=== PATIENT | male | born 1960 ===

== ENCOUNTER 2020-06-10 10:37 | Outpatient (REF) | payer MEDICAID, SELFPAY ==
[2020-06-10 12:24] LABS: Hematocrit 45.8 % (42-52); Hemoglobin 15.1 g/dl (14.0-18.0); Mean Corpuscular Hemoglobin 28.2 pg (27.0-33.0); Mean Corpuscular Volume 85.4 fL (80-98); Mean Platelet Volume 11.4 fL (9.4-12.4); Platelet Count 194 X10*3/uL (160-400); Red Blood Count 5.36 X10*6/uL (4.60-5.80); Red Cell Distribution Width 13.8 % (11.0-16.0)
[2020-06-10 12:42] LABS: Anion Gap 10 (12-20); Blood Urea Nitrogen 12 mg/dL (9-16); Calcium 9.2 mg/dL (8.4-10.2); Carbon Dioxide 29 mmol/L (22-29); Chloride 108 mmol/L (96-108); Cholesterol 180 mg/dL; Estimated Glomerular Filt Rate > 60; Glucose Random 87 mg/dL (60-115); HDL Cholesterol 29 mg/dL; LDL Cholesterol Calculated 121 mg/dl; Potassium 4.7 mmol/l (3.3-5.1); Sodium 142 mmol/L (135-145); Triglycerides 154 mg/dL
[2020-06-10 13:04] LABS: Free T4 (Free Thyroxine) 1.01 ng/dL (0.71-1.85); Thyroid Stimulating Hormone 1.02 mIU/mL (0.32-4.0)
[2020-06-10 13:07] LABS: Folate 11.2 ng/mL (> or = 4.0); Vitamin B12 379 pg/mL (200-900)
[2020-06-10 14:04] LABS: Creatinine Urine 127.55 mg/dL
[2020-06-10 14:18] LABS: Microalbum/Creatinine Ratio Ur 503.3 ug/mg cr
[2020-06-10 14:43] LABS: Estimated Average Glucose 100 mg/dL; Hemoglobin A1c % 5.1 %
== END 2020-06-10 10:38 | disposition home or self-care (01) ==
LOC: HO.LAB 10:37
PROVIDERS: PCP Family Medicine; Visit Provider Family Medicine
DX: I10 Essential (primary) hypertension (principal)
CPT/HCPCS: 36415; 80048; 80061; 82043; 82306; 82607; 82746; 83036; 84439; 84443; 85027

== ENCOUNTER 2020-07-22 06:06 | Day surgery (SDC) | payer MEDICAID, SELFPAY ==
[2020-07-16 14:55] VITALS: BMI 25.0
[2020-07-22 06:32] VITALS: BP 132/60; PULSE 61; RESP 16; TEMP 36.6; O2SAT 98
--- NOTE | 2020-07-22 06:37 | PC.NURSE ---
no meds taken today
--- NOTE | 2020-07-22 07:25 | MHC.SHP ---
Pre-Procedural Eval Section B Chief Complaint: Hx of Bladder Cancer Details of Present Illness: Bladder tumor Relevant Family History (Specify if Yes): No Relevant Social History: Tobacco Use Present Medications: see Short Stay Collaborative assessment Medical History: No relevant PMH History of Previous Operations: No relevant previous surgery Allergies: Allergies Allergy/AdvReac Type Severity Reaction Status Date / Time Iodinated Contrast Media Allergy Severe TACHYCARDIA, Unverified 05/22/20 18:02 [IV DYE, IODINE CONTAINING DIFFICULTY CONTRAST ] BREATHING, CHEST PAIN Penicillins [PENICILLINS] Allergy Severe SHAKING,CHI Unverified 05/22/20 18:02 LLS penicillin V Allergy Unknown redness, Verified 04/16/20 00:00 chest tightness SEAFOOD Allergy Severe ITCHING, Uncoded 05/22/20 18:02 HIVES, N/V shellfish Allergy Unknown rash, Uncoded 04/16/20 00:00 itching Review of Systems Sugical H&P ROS: Negative: Constitution, Cardiovascular, Respiratory, Neurological, Psychiatric, Hem-Onc, Allergic/Immunologic, Gastrointestinal, Genitourinary, Musculoskeletal, Integumentary, Endocrine and Eyes/Ears/Nose/Throat Exam Surgical H&P Exam: Normal: HEENT, Normal: Heart, Normal: Lungs, Normal: Extremities, Normal: Abdomen, Normal: Skin and Normal: Neurological Plan Diagnosis/Plan: Unchanged Patient has been examined and remains a candidate for the planned procedure
[2020-07-22] MEDS: levoFLOXacin 500 MG TABLET PO (07:30)
--- NOTE | 2020-07-22 07:32 | P.CONAN_ITS ---
COUNTS INCLUDE 234 BEDS AT THE [facility] Past Medical History Medical History Arthritis Back pain Bipolar 1 disorder BPH (benign prostatic hyperplasia) Bronchitis Depression Elevated cholesterol HTN (hypertension) Hx of bladder cancer Hx of gastroesophageal reflux (GERD) Hx of hepatitis C Positive PPD PTSD (post-traumatic stress disorder) Smoker Surgical History Surgical History History of inguinal hernia repair Hx of arthroscopy of left knee Hx of colonoscopy Hx of cystoscopy Hx of hand surgery Hx of hernia repair Social History Social History Alcohol intake: never Smoking Status: Current every day smoker Tobacco Type: Cigarette Cigarettes Per Day: 10 Years Smoked: 27 Advance Directives: Yes Advance Directives Information Provided: Yes Advance Directives on File: Yes Advance Directives Date on File: 06/10/20 Meds Allergies Allergy/AdvReac Type Severity Reaction Status Date / Time Iodinated Contrast Media Allergy Severe TACHYCARDIA, Unverified 05/22/20 18:02 [IV DYE, IODINE CONTAINING DIFFICULTY CONTRAST ] BREATHING, CHEST PAIN Penicillins [PENICILLINS] Allergy Severe SHAKING,CHI Unverified 05/22/20 18:02 LLS penicillin V Allergy Unknown redness, Verified 04/16/20 00:00 chest tightness SEAFOOD Allergy Severe ITCHING, Uncoded 05/22/20 18:02 HIVES, N/V shellfish Allergy Unknown rash, Uncoded 04/16/20 00:00 itching Home Medications Medication Instructions Recorded Confirmed Type amitriptyline 10 mg PO BEDTIME 07/16/20 07/16/20 History atorvastatin 20 mg PO BEDTIME 07/16/20 07/16/20 History bupropion HCl 150 mg PO QAM 07/16/20 07/16/20 History cholecalciferol (vitamin D3) 25 mcg PO DAILY 07/16/20 07/16/20 History [Vitamin D3] cyclobenzaprine [Flexeril] 10 mg PO TID PRN 07/16/20 07/16/20 History dicyclomine 10 mg PO BID 07/16/20 07/16/20 History duloxetine [Cymbalta] 30 mg PO DAILY 07/16/20 07/16/20 History gabapentin 300 mg PO TID 07/16/20 07/16/20 History lisinopril 5 mg PO DAILY 07/16/20 07/16/20 History loratadine [Claritin] 10 mg PO DAILY 07/16/20 07/16/20 History sertraline 100 mg PO DAILY 07/16/20 07/16/20 History tamsulosin 0.4 mg PO BEDTIME 07/16/20 07/16/20 History tramadol 50 mg PO TID PRN 07/16/20 07/16/20 History zolpidem 5 mg PO BEDTIME PRN 07/16/20 07/16/20 History Exam Exam Date and Time: July 22, 2020 0732 Height,Weight and Vital Signs: Height 6 ft Weight 83.915 kg Last Vital Signs Temp 97.9 F 07/22/20 06:32 Pulse 61 07/22/20 06:32 Resp 16 07/22/20 06:32 BP 132/60 07/22/20 06:32 Pulse Ox 98 07/22/20 06:32 Airway Mallampati Class: II TM Dist: >3cm Neck ROM: Full
[2020-07-22] MEDS: Lactated Ringers 1,000 ML 100 ML IVCONT (07:46)
--- NOTE | 2020-07-22 07:56 | P.OP_ITS ---
Operative Note Operative Note Date of Service: 07/22/20 Narrative: PreOperative Diagnosis: recurrent bladder cancer Post Operative Diagnosis: recurrent bladder cancer Procedure: check cystoscopy Surgeon: Dr Samuel Cox Anesthesia: mac Indications for procedure: This is a 60-year-old male. Known prior bladder cancer. Has check cystoscopy in the operating room secondary to anxiety. Is here for cystoscopy surveillance Procedure: After informed consent was verified the patient was brought to the operating room and placed in a supine position. anesthesia was administered per protocol. the patient was placed in a modified dorsal lithotomy position and prepped and draped in a sterile fashion. Safety pause time-out was performed. Antibiotics were confirmed. Twenty-one Japanese cystoscope inserted per urethra. No abnormality noted of the anterior posterior urethra. The bladder was examined in its entirety 1st with a 30 degree lens followed by 70 degree lens. There were no lesions seen. There were multiple areas of prior fulguration. Particularly around the dome of the bladder and the right ureteric orifice. The right ureteric orifice appeared high on the wall and there was a question of a 2nd orifice down low with this was attack of tissue. On filling he did also appear to have some blanching of the mucosa and glomer ulations. This may be a side effect from prior intravesical therapy. He tolerated procedure well was extubated in the operating room transferred in a stable condition to the recovery area. Pathology: None Drains: known
--- NOTE | 2020-07-22 07:56 | PM.OP ---
Brief Operative Note Date of Service: 07/22/20 Pre-op diagnosis: Recurrent bladder cancer Post-op diagnosis: same Procedure: cystoscopy Surgeon: Samuel Cox MD Anesthesia: MAC Estimated blood loss (mL): 0 Pathology: none sent Condition: stable Disposition: same day
[2020-07-22 08:10] VITALS: BP 90/46; PULSE 75; RESP 16; TEMP 36.2; O2SAT 95
[2020-07-22 08:15] VITALS: BP 96/47; PULSE 70; RESP 16; O2SAT 96
--- NOTE | 2020-07-22 08:19 | P.CONAN_ITS ---
[facility] Past Medical History Medical History Arthritis Back pain Bipolar 1 disorder BPH (benign prostatic hyperplasia) Bronchitis Depression Elevated cholesterol HTN (hypertension) Hx of bladder cancer Hx of gastroesophageal reflux (GERD) Hx of hepatitis C Positive PPD PTSD (post-traumatic stress disorder) Smoker Surgical History Surgical History History of inguinal hernia repair Hx of arthroscopy of left knee Hx of colonoscopy Hx of cystoscopy Hx of hand surgery Hx of hernia repair Social History Social History Alcohol intake: never Smoking Status: Current every day smoker Tobacco Type: Cigarette Cigarettes Per Day: 10 Years Smoked: 27 Advance Directives: Yes Advance Directives Information Provided: Yes Advance Directives on File: Yes Advance Directives Date on File: 06/10/20 Meds Allergies Allergy/AdvReac Type Severity Reaction Status Date / Time Iodinated Contrast Media Allergy Severe TACHYCARDIA, Unverified 05/22/20 18:02 [IV DYE, IODINE CONTAINING DIFFICULTY CONTRAST ] BREATHING, CHEST PAIN Penicillins [PENICILLINS] Allergy Severe SHAKING,CHI Unverified 05/22/20 18:02 LLS penicillin V Allergy Unknown redness, Verified 04/16/20 00:00 chest tightness SEAFOOD Allergy Severe ITCHING, Uncoded 05/22/20 18:02 HIVES, N/V shellfish Allergy Unknown rash, Uncoded 04/16/20 00:00 itching Home Medications Medication Instructions Recorded Confirmed Type amitriptyline 10 mg PO BEDTIME 07/16/20 07/16/20 History atorvastatin 20 mg PO BEDTIME 07/16/20 07/16/20 History bupropion HCl 150 mg PO QAM 07/16/20 07/16/20 History cholecalciferol (vitamin D3) 25 mcg PO DAILY 07/16/20 07/16/20 History [Vitamin D3] cyclobenzaprine 10 mg PO TID PRN 07/16/20 07/16/20 History dicyclomine 10 mg PO BID 07/16/20 07/16/20 History duloxetine [Cymbalta] 30 mg PO DAILY 07/16/20 07/16/20 History gabapentin 300 mg PO TID 07/16/20 07/16/20 History lisinopril 5 mg PO DAILY 07/16/20 07/16/20 History loratadine [Claritin] 10 mg PO DAILY 07/16/20 07/16/20 History sertraline 100 mg PO DAILY 07/16/20 07/16/20 History tamsulosin 0.4 mg PO BEDTIME 07/16/20 07/16/20 History tramadol 50 mg PO TID PRN 07/16/20 07/16/20 History zolpidem 5 mg PO BEDTIME PRN 07/16/20 07/16/20 History Exam Exam Date and Time: July 22, 2020818 Height,Weight and Vital Signs: Height 6 ft Weight 83.915 kg Last Vital Signs Temp 97.2 F 07/22/20 08:10 Pulse 70 07/22/20 08:15 Resp 16 07/22/20 08:15 BP 96/47 L 07/22/20 08:15 Pulse Ox 96 07/22/20 08:15 Airway Mallampati Class: II TM Dist: >3cm Neck ROM: Full
[2020-07-22 08:20] VITALS: BP 99/56; PULSE 73; RESP 16; O2SAT 97
[2020-07-22] MEDS: Phenazopyridine HCL 100 MG TABLET PO (08:22)
[2020-07-22] MEDS: Acetaminophen 325 MG TABLET 650 MG PO (08:22)
[2020-07-22 08:25] VITALS: BP 95/55; PULSE 72; RESP 16; O2SAT 97
[2020-07-22 08:39] VITALS: BP 104/53; PULSE 62; RESP 16; O2SAT 98
--- NOTE | 2020-07-22 09:24 | HO.POSTANES ---
Post Anesthesia Evaluation Post Anesthesia Evaluation Vital Signs: Vital Signs Temp Pulse Resp BP Pulse Ox 07/22/20 08:39 62 16 104/53 L 98 07/22/20 08:25 72 16 95/55 L 97 07/22/20 08:20 73 16 99/56 L 97 07/22/20 08:15 70 16 96/47 L 96 07/22/20 08:10 97.2 F 75 16 90/46 L 95 07/22/20 06:32 97.9 F 61 16 132/60 98 Anesthesia: General Mental Status: Awake Pain Control: Satisfactory Nausea/Vomiting: None Hydration: Adequate Anesthesia-Related Issues: No Anes. Related Issues
== END 2020-07-22 09:15 | disposition home or self-care (01) ==
PROVIDERS: PCP Family Medicine; Visit Provider Urology
PROC: 0TJB8ZZ Inspection of Bladder, Via Natural or Artificial Opening Endoscopic (ICD-10-PCS; CPT 52000; principal; 2020-07-22 07:30)
DX: Z12.6 Encounter for screening for malignant neoplasm of bladder (principal); Z85.51 Personal history of malignant neoplasm of bladder; N40.0 Benign prostatic hyperplasia without lower urinary tract symptoms; I10 Essential (primary) hypertension; F43.10 Post-traumatic stress disorder, unspecified; F32.9 Major depressive disorder, single episode, unspecified; Z22.7 Latent tuberculosis; M15.9 Polyosteoarthritis, unspecified; F17.210 Nicotine dependence, cigarettes, uncomplicated; Z79.899 Other long term (current) drug therapy; Z88.0 Allergy status to penicillin; Z91.041 Radiographic dye allergy status; Z91.013 Allergy to seafood
CPT/HCPCS: 52000; J1100; J2250; J2405; J3010

== ENCOUNTER → 2020-08-07 12:29 | Outpatient (BNVA) | payer MEDICAID, SELFPAY | PROVIDERS: PCP Family Medicine; Referring Provider Family Medicine; Visit Provider Student in an Organized Health Care Education/Training Program | DX: Z76.89 Persons encountering health services in other specified circumstances (principal) ==

== ENCOUNTER → 2020-10-02 12:37 | Outpatient (BNVA) | payer MEDICAID, SELFPAY | PROVIDERS: PCP Family Medicine; Visit Provider Urology | DX: C67.9 Malignant neoplasm of bladder, unspecified (principal) | CPT/HCPCS: 99212 ==

== ENCOUNTER 2020-12-01 06:19 | Day surgery (SDC) | payer MEDICAID, SELFPAY ==
[2020-11-25 09:54] VITALS: BMI 27.3
[2020-12-01 06:27] VITALS: BP 121/71; PULSE 69; RESP 16; TEMP 36.7; O2SAT 97
[2020-12-01] MEDS: Lactated Ringers 1,000 ML 50 ML IV (07:33)
--- NOTE | 2020-12-01 07:38 | MHC.SHP ---
Pre-Procedural Eval Section A The patient is an INPATIENT: No Changes since office visit: No Cold of Flu in the past 2 weeks, No New Medical Problems, No Changes in Medication and No Patient answered all questions The History & Physical has been completed within 30 days and I have reviewed it.: No Section B Chief Complaint: bladder neoplasm Details of Present Illness: ongoing. Here for 4 month review Relevant Family History (Specify if Yes): No Relevant Social History: None Present Medications: see Short Stay Collaborative assessment Medical History: No relevant PMH History of Previous Operations: Relevant previous surgery/procedure and date(s) Allergies: Allergies Allergy/AdvReac Type Severity Reaction Status Date / Time Iodinated Contrast Media Allergy Severe TACHYCARDIA, Verified 12/01/20 06:44 [IV DYE, IODINE CONTAINING DIFFICULTY CONTRAST ] BREATHING, CHEST PAIN Penicillins [PENICILLINS] Allergy Severe SHAKING,CHI Verified 12/01/20 06:44 LLS SEAFOOD Allergy Severe ITCHING, Uncoded 05/22/20 18:02 HIVES, N/V Review of Systems Sugical H&P ROS: Negative: Constitution, Cardiovascular, Respiratory, Neurological, Psychiatric, Hem-Onc, Allergic/Immunologic, Gastrointestinal, Genitourinary, Musculoskeletal, Integumentary, Endocrine and Eyes/Ears/Nose/Throat Exam Surgical H&P Exam: Normal: HEENT, Normal: Heart, Normal: Lungs, Normal: Extremities, Normal: Abdomen, Normal: Skin and Normal: Neurological Plan Diagnosis/Plan: Unchanged (check cystoscopy with biopsy if necessary) I have reviewed the history and physical and performed a pertinent physical examination on my patient. No changes have occurred unless specified.
[2020-12-01 08:00] VITALS: BP 108/60; PULSE 79; RESP 14; TEMP 36.2; O2SAT 99
--- NOTE | 2020-12-01 08:00 | W.PM.OPN ---
Operative Note Operative Note Date of Service: 12/01/20 Narrative: PreOperative Diagnosis: recurrent superficial bladder cancer Post Operative Diagnosis: recurrent superficial bladder cancer Procedure: cystoscopy fulguration Surgeon: Dr Samuel Cox Anesthesia: general Indications for procedure: This is a 60-year-old male. Prior superficial bladder cancer. Here for 4 month review. Normally undergo cystoscopy with fulguration of any lesions. Procedure: After informed consent was verified the patient was brought to the operating room and placed in a supine position. anesthesia was administered per protocol. The patient was placed in a modified dorsal lithotomy position and prepped and draped in a sterile fashion. Safety pause time-out was performed. Antibiotics have been given. Twenty-two Vietnamese cystoscope inserted per urethra. No abnormality noted in the anterior or posterior urethra. Bladder was examined in its entirety. Once small 5 mm lesion was found in back wall of the bladder in the midline. This was fulgurated. No other lesions were found Patient tolerated procedure well was extubated in operating room and transferred in a stable condition to the recovery area. Pathology: None Drains: none
--- NOTE | 2020-12-01 08:01 | HO.ANESPROP2 ---
[facility] [place] Active Problems Active Problems: All Active Problems (Updated 10/02/20 @ 13:12 by Gallo Fleming III, MD) Bladder cancer (Acute) Ankylosing spondylitis (Acute) Past Medical History Medical History Ankylosing spondylitis Arthritis Back pain Bipolar 1 disorder Bladder cancer BPH (benign prostatic hyperplasia) Bronchitis Depression Elevated cholesterol HTN (hypertension) Hx of bladder cancer Hx of gastroesophageal reflux (GERD) Hx of hepatitis C Positive PPD PTSD (post-traumatic stress disorder) Smoker Surgical History Surgical History History of inguinal hernia repair Hx of arthroscopy of left knee Hx of colonoscopy Hx of cystoscopy Hx of cystoscopy Hx of hand surgery Hx of hernia repair Social History Social History Alcohol intake: never Smoking Status: Current every day smoker Tobacco Type: Cigarette Cigarettes Per Day: 10 Years Smoked: 27 Use of substances other than those prescribed or required for medical reasons: No Advance Directives: Yes Advance Directives Information Provided: Yes Advance Directives on File: Yes Advance Directives Date on File: 06/10/20 Meds Allergies Allergy/AdvReac Type Severity Reaction Status Date / Time Iodinated Contrast Media Allergy Severe TACHYCARDIA, Verified 12/01/20 06:44 [IV DYE, IODINE CONTAINING DIFFICULTY CONTRAST ] BREATHING, CHEST PAIN Penicillins [PENICILLINS] Allergy Severe SHAKING,CHI Verified 12/01/20 06:44 LLS SEAFOOD Allergy Severe ITCHING, Uncoded 05/22/20 18:02 HIVES, N/V Active Medications: Current Medications Generic Name Dose Route Start Last Admin Trade Name Freq PRN Reason Stop Dose Admin Lactated Ringer's 1,000 mls @ 50 mls/hr 12/01/20 07:30 12/01/20 07:33 Lr IV 50 mls/hr .Q20H LIZANDRO Administration Home Medications Medication Instructions Recorded Confirmed Last Taken Type amitriptyline 10 mg PO BEDTIME 07/16/20 11/25/20 Unknown History atorvastatin 20 mg PO BEDTIME 07/16/20 11/25/20 Unknown History bupropion HCl 150 mg PO QAM 07/16/20 07/16/20 Unknown History cholecalciferol (vitamin D3) 25 mcg PO DAILY 07/16/20 11/25/20 Unknown History [Vitamin D3] cyclobenzaprine 10 mg PO TID PRN 07/16/20 11/25/20 Unknown History dicyclomine 10 mg PO BID 07/16/20 11/25/20 Unknown History duloxetine [Cymbalta] 30 mg PO DAILY 07/16/20 11/25/20 Unknown History gabapentin 300 mg PO TID 07/16/20 11/25/20 Unknown History lisinopril 5 mg PO DAILY 07/16/20 11/25/20 Unknown History loratadine [Claritin] 10 mg PO DAILY 07/16/20 11/25/20 Unknown History sertraline 100 mg PO DAILY 07/16/20 11/25/20 Unknown History tamsulosin 0.4 mg PO BEDTIME 07/16/20 11/25/20 Unknown History tramadol 50 mg PO TID PRN 07/16/20 11/25/20 Unknown History zolpidem 5 mg PO BEDTIME PRN 07/16/20 11/25/20 Unknown History Exam Exam Date and Time: December 01, 2020 0801 Height,Weight and Vital Signs: Height 5 ft 9 in Weight 83.915 kg Last Vital Signs Temp 98.1 F 12/01/20 06:27 Pulse 69 12/01/20 06:27 Resp 16 12/01/20 06:27 BP 121/71 12/01/20 06:27 Pulse Ox 97 12/01/20 06:27 Airway Mallampati Class: I TM Dist: >3cm Neck ROM: Full Loose/Missing/Broken Teeth: No Heart: RRR Assessment and Plan Assessment Anesthesia Assessment: Anesthesia Plan Discussed and Chart Reviewed Final Anesthetic Review NPO: Yes ASA Class: II Final Preanesthetic Review: No Changes in Pt Med Stat, Meds/Allgs Chart Reviewed, Consent Obtained/Reviewed and Anes Risks/Benef Reviewed Patient Risk: Low Procedure Risk: Low Anesthetic Plan Anesthetic Plan: GA Disposition: Standard PACU
[2020-12-01 08:05] VITALS: BP 110/63; PULSE 69; RESP 18; O2SAT 97
--- NOTE | 2020-12-01 08:05 | PM.OP ---
Brief Operative Note Date of Service: 12/01/20 Pre-op diagnosis: bladder cancer Post-op diagnosis: same Procedure: cysto, fulgeration Surgeon: Samuel Cox MD Anesthesia: GLMA Estimated blood loss (mL): 0 Pathology: none sent Condition: stable Disposition: same day
[2020-12-01 08:10] VITALS: BP 112/70; PULSE 72; RESP 18; O2SAT 96
[2020-12-01 08:15] VITALS: BP 100/56; PULSE 68; RESP 18; O2SAT 96
== END 2020-12-01 09:12 | disposition home or self-care (01) ==
PROVIDERS: PCP Family Medicine; Visit Provider Urology
PROC: 0TBB8ZZ Excision of Bladder, Via Natural or Artificial Opening Endoscopic (ICD-10-PCS; CPT 52234; principal; 2020-12-01 07:30)
DX: C67.9 Malignant neoplasm of bladder, unspecified (principal); I10 Essential (primary) hypertension; F17.210 Nicotine dependence, cigarettes, uncomplicated; Z91.041 Radiographic dye allergy status; Z88.0 Allergy status to penicillin; Z79.899 Other long term (current) drug therapy
CPT/HCPCS: 52234; J1100; J2250; J2405; J3010

== ENCOUNTER → 2020-12-19 11:39 | Outpatient (BNVA) | payer MEDICAID, SELFPAY | PROVIDERS: PCP Family Medicine; Visit Provider Urology ==

== ENCOUNTER → 2021-05-05 14:30 | Outpatient (BNVA) | payer MEDICAID, SELFPAY | PROVIDERS: PCP Family Medicine; Visit Provider Nurse Practitioner Family ==

== ENCOUNTER → 2021-05-26 10:22 | Outpatient (BNVA) | payer MEDICAID, SELFPAY | PROVIDERS: Visit Provider Urology ==

== ENCOUNTER 2021-06-29 07:08 | Day surgery (SDC) | payer MEDICAID, SELFPAY ==
[2021-06-23 11:00] VITALS: BMI 27.3
--- NOTE | 2021-06-26 14:03 | HO.ANESPROP2 ---
Documented by User: Norma Harley NP 06/26/21 14:07 HPI - Anesthesia Eval Consult details Narrative: 61yo M for Cystoscopy s/p TURBT with [facility]-L[facility] 4 (many TURBT) PMFSH Active Problems Active Problems: All Active Problems (Updated 05/26/21 @ 11:13 by Samuel Cox MD) Bladder cancer (Acute) Ankylosing spondylitis (Acute) Past Medical History Medical History Ankylosing spondylitis Arthritis Back pain Bipolar 1 disorder Bladder cancer BPH (benign prostatic hyperplasia) Bronchitis Depression Elevated cholesterol HTN (hypertension) Hx of bladder cancer Hx of gastroesophageal reflux (GERD) Hx of hepatitis C Positive PPD PTSD (post-traumatic stress disorder) Smoker Surgical History Surgical History History of inguinal hernia repair Hx of arthroscopy of left knee Hx of colonoscopy Hx of cystoscopy Hx of cystoscopy Hx of cystoscopy Hx of hand surgery Hx of hernia repair Social History Social History Are you a primary urgent care physician assistant to a significant other at home: No Do you presently have visiting nurse or other home services: No Alcohol intake: never Patient Tobacco Use Status: Current everyday Tobacco user Tobacco use type: Cigarette Cigarettes Per Day: 10 Years Smoked: 28 Use of substances other than those prescribed or required for medical reasons: No Have you been hit, kicked, punched, or otherwise hurt by someone within the past year? If so, by whom?: No Are you DNR?: No Advance Directives: Yes Advance Directives Information Provided: Yes Advance Directives on File: Yes Advance Directives Date on File: 06/10/20 Recently lost weight without trying: No Eating poorly because of decreased appetite: No Nutrition Risks: No Nutritional Risk Meds Allergies Allergy/AdvReac Type Severity Reaction Status Date / Time Iodinated Contrast Media Allergy Severe TACHYCARDIA, Verified 05/05/21 15:13 [IV DYE, IODINE CONTAINING DIFFICULTY CONTRAST ] BREATHING, CHEST PAIN Penicillins [PENICILLINS] Allergy Severe SHAKING,CHI Verified 05/05/21 15:13 LLS seafood Allergy Severe itching/hiv Verified 06/23/21 10:54 es/nausea-v omiting Home Medications Medication Instructions Recorded Confirmed Last Taken Type amitriptyline 10 mg tablet 10 mg PO BEDTIME 07/16/20 06/23/21 Unknown History atorvastatin 20 mg tablet 20 mg PO BEDTIME 07/16/20 06/23/21 Unknown History bupropion HCl 150 mg 24 hr tablet, 150 mg PO QAM 07/16/20 06/23/21 Unknown History extended release cholecalciferol (vitamin D3) 25 25 mcg PO DAILY 07/16/20 06/23/21 Unknown History mcg (1,000 unit) capsule (Vitamin D3) cyclobenzaprine 10 mg tablet 10 mg PO TID PRN 07/16/20 06/23/21 Unknown History dicyclomine 10 mg capsule 10 mg PO BID 07/16/20 06/23/21 Unknown History duloxetine 30 mg capsule,delayed 30 mg PO DAILY 07/16/20 06/23/21 Unknown History release (Cymbalta) gabapentin 300 mg capsule 300 mg PO TID 07/16/20 06/23/21 Unknown History lisinopril 5 mg tablet 5 mg PO DAILY 07/16/20 06/23/21 Unknown History loratadine 10 mg tablet (Claritin) 10 mg PO DAILY 07/16/20 06/23/21 Unknown History sertraline 100 mg tablet 100 mg PO DAILY 07/16/20 06/23/21 Unknown History tamsulosin 0.4 mg capsule 0.4 mg PO BEDTIME 07/16/20 06/23/21 Unknown History tramadol 50 mg tablet 50 mg PO TID PRN 07/16/20 06/23/21 Unknown History zolpidem 5 mg tablet 5 mg PO BEDTIME PRN 07/16/20 06/23/21 Unknown History Exam Exam Date and Time: June 26, 2021 1403 Height,Weight and Vital Signs: Height 5 ft 9 in Weight 83.915 kg Assessment and Plan Assessment Anesthesia Assessment: Chart Reviewed Documented by User: Bette Youssef MD 06/29/21 07:59 PMFSH Past Medical History Medical History Ankylosing spondylitis Arthritis Back pain Bipolar 1 disorder Bladder cancer BPH (benign prostatic hyperplasia) Bronchitis Depression Elevated cholesterol HTN (hypertension) Hx of bladder cancer Hx of gastroesophageal reflux (GERD) Hx of hepatitis C Positive PPD PTSD (post-traumatic stress disorder) Smoker Surgical History Surgical History History of inguinal hernia repair Hx of arthroscopy of left knee Hx of colonoscopy Hx of cystoscopy Hx of cystoscopy Hx of cystoscopy Hx of hand surgery Hx of hernia repair History of Problems with Anesthesia: No Social History Social History Are you a primary urgent care physician assistant to a significant other at home: No Do you presently have visiting nurse or other home services: No Alcohol intake: never Patient Tobacco Use Status: Current everyday Tobacco user Tobacco use type: Cigarette Cigarettes Per Day: 10 Years Smoked: 28 Use of substances other than those prescribed or required for medical reasons: No Have you been hit, kicked, punched, or otherwise hurt by someone within the past year? If so, by whom?: No Are you DNR?: No Advance Directives: Yes Advance Directives Information Provided: Yes Advance Directives on File: Yes Advance Directives Date on File: 06/10/20 Recently lost weight without trying: No Eating poorly because of decreased appetite: No Nutrition Risks: No Nutritional Risk Meds Allergies Allergy/AdvReac Type Severity Reaction Status Date / Time Iodinated Contrast Media Allergy Severe TACHYCARDIA, Verified 05/05/21 15:13 [IV DYE, IODINE CONTAINING DIFFICULTY CONTRAST ] BREATHING, CHEST PAIN Penicillins [PENICILLINS] Allergy Severe SHAKING,CHI Verified 05/05/21 15:13 LLS seafood Allergy Severe itching/hiv Verified 06/23/21 10:54 es/nausea-v omiting Home Medications Medication Instructions Recorded Confirmed Last Taken Type amitriptyline 10 mg tablet 10 mg PO BEDTIME 07/16/20 06/23/21 Unknown History atorvastatin 20 mg tablet 20 mg PO BEDTIME 07/16/20 06/23/21 Unknown History bupropion HCl 150 mg 24 hr tablet, 150 mg PO QAM 07/16/20 06/23/21 Unknown History extended release cholecalciferol (vitamin D3) 25 25 mcg PO DAILY 07/16/20 06/23/21 Unknown History mcg (1,000 unit) capsule (Vitamin D3) cyclobenzaprine 10 mg tablet 10 mg PO TID PRN 07/16/20 06/23/21 Unknown History dicyclomine 10 mg capsule 10 mg PO BID 07/16/20 06/23/21 Unknown History duloxetine 30 mg capsule,delayed 30 mg PO DAILY 07/16/20 06/23/21 Unknown History release (Cymbalta) gabapentin 300 mg capsule 300 mg PO TID 07/16/20 06/23/21 Unknown History lisinopril 5 mg tablet 5 mg PO DAILY 07/16/20 06/23/21 Unknown History loratadine 10 mg tablet (Claritin) 10 mg PO DAILY 07/16/20 06/23/21 Unknown History sertraline 100 mg tablet 100 mg PO DAILY 07/16/20 06/23/21 Unknown History tamsulosin 0.4 mg capsule 0.4 mg PO BEDTIME 07/16/20 06/23/21 Unknown History tramadol 50 mg tablet 50 mg PO TID PRN 07/16/20 06/23/21 Unknown History zolpidem 5 mg tablet 5 mg PO BEDTIME PRN 07/16/20 06/23/21 Unknown History Exam Airway Mallampati Class: III TM Dist: >3cm Neck ROM: Full Loose/Missing/Broken Teeth: No Heart: RRR Lungs: CTA Assessment and Plan Assessment Anesthesia Assessment: Anesthesia Plan Discussed Final Anesthetic Review History of Problems with Anesthesia: No NPO: Yes ASA Class: II Final Preanesthetic Review: Meds/Allgs Chart Reviewed, Consent Obtained/Reviewed and Anes Risks/Benef Reviewed Patient Risk: Low Procedure Risk: Low Anesthetic Plan Anesthetic Plan: GA Disposition: Standard PACU
[2021-06-29] MEDS: levoFLOXacin 500 MG TABLET PO (08:00)
[2021-06-29 08:24] VITALS: BP 103/56; PULSE 64; RESP 18; TEMP 36.2; O2SAT 98
[2021-06-29] MEDS: Lactated Ringers 1,000 ML 100 ML IVCONT (08:29)
--- NOTE | 2021-06-29 09:56 | MHC.SHP ---
Pre-Procedural Eval Section A Date of Service: 06/29/21 Section B Chief Complaint: neoplasm of bladder Details of Present Illness: check cysto Relevant Social History: None Present Medications: see Short Stay Collaborative assessment Medical History: Significant History History of Previous Operations: Relevant previous surgery/procedure and date(s) Allergies: Allergies Allergy/AdvReac Type Severity Reaction Status Date / Time Iodinated Contrast Media Allergy Severe TACHYCARDIA, Verified 05/05/21 15:13 [IV DYE, IODINE CONTAINING DIFFICULTY CONTRAST ] BREATHING, CHEST PAIN Penicillins [PENICILLINS] Allergy Severe SHAKING,CHI Verified 05/05/21 15:13 LLS seafood Allergy Severe itching/hiv Verified 06/23/21 10:54 es/nausea-v omiting Review of Systems Sugical H&P ROS: Negative: Constitution, Cardiovascular, Respiratory, Neurological, Psychiatric, Hem-Onc, Allergic/Immunologic, Gastrointestinal, Genitourinary, Musculoskeletal, Integumentary, Endocrine and Eyes/Ears/Nose/Throat Exam Surgical H&P Exam: Normal: HEENT, Normal: Heart, Normal: Lungs, Normal: Extremities, Normal: Abdomen, Normal: Skin and Normal: Neurological Plan Diagnosis/Plan: Unchanged (cysto in or) I have reviewed the history and physical and performed a pertinent physical examination on my patient. No changes have occurred unless specified.
--- NOTE | 2021-06-29 10:18 | W.PM.OPN ---
Operative Note Operative Note Date of Service: 06/29/21 Narrative: PreOperative Diagnosis: Bladder cancer Post Operative Diagnosis: Bladder cancer Procedure: Cystoscopy Surgeon: Dr Samuel Cox Anesthesia: Sedation Indications for procedure: Longstanding bladder cancer. On 6 monthly surveillance. Last procedure small lesion Procedure: After informed consent was verified the patient was brought to the operating room and placed in a supine position. Anesthesia was administered per protocol. After he had been prepped and draped in sterile fashion flexible cystoscopy was performed. No abnormality found in the anterior posterior urethra. Bladder examined in its entirety. Prior area scarring at back wall dome seen. No lesions seen within bladder. He tolerated procedure well Repeat procedure in 6 months Pathology: None Drains: None none
[2021-06-29 10:25] VITALS: BP 151/59; PULSE 63; RESP 10; TEMP 36.6; O2SAT 100
[2021-06-29 10:30] VITALS: BP 143/61; PULSE 76; RESP 12; O2SAT 100
[2021-06-29 10:35] VITALS: BP 126/58; PULSE 79; RESP 12; O2SAT 98
[2021-06-29 10:40] VITALS: BP 134/59; PULSE 85; RESP 16; TEMP 36.6; O2SAT 97
[2021-06-29 10:48] VITALS: BP 117/60; PULSE 75; RESP 16; TEMP 36.6; O2SAT 98
[2021-06-29] MEDS: Acetaminophen 325 MG TABLET 650 MG PO (11:09)
[2021-06-29] MEDS: Phenazopyridine HCL 100 MG TABLET PO (11:10)
== END 2021-06-29 11:30 | disposition home or self-care (01) ==
PROVIDERS: PCP Family Medicine; Visit Provider Urology
PROC: 0TJB8ZZ Inspection of Bladder, Via Natural or Artificial Opening Endoscopic (ICD-10-PCS; CPT 52000; principal; 2021-06-29 09:20)
DX: C67.9 Malignant neoplasm of bladder, unspecified (principal); N40.0 Benign prostatic hyperplasia without lower urinary tract symptoms; I10 Essential (primary) hypertension; Z86.19 Personal history of other infectious and parasitic diseases; Z79.899 Other long term (current) drug therapy; Z88.0 Allergy status to penicillin; Z91.041 Radiographic dye allergy status
CPT/HCPCS: 52000; J1100; J2250; J2370; J2405; J3010

== ENCOUNTER → 2021-08-11 09:38 | Outpatient (BNVA) | payer MEDICAID, SELFPAY | PROVIDERS: PCP Family Medicine; Visit Provider Nurse Practitioner Family | DX: M45.9 Ankylosing spondylitis of unspecified sites in spine (principal) | CPT/HCPCS: 99212 ==

== ENCOUNTER 2021-11-10 10:37 | Outpatient (REF) | payer MEDICAID, SELFPAY ==
--- NOTE | ~2021-11-10 | XR_ITS ---
EXAMINATION: XR KNEE, RIGHT CLINICAL INFORMATION: This is a 61-year-old male with history of chronic right knee pain. No history of injury. COMPARISON: Comparison is made to the previous studies dated 10/26/2019 TECHNIQUE: Four views of the right knee. FINDINGS: Bony alignment and mineralization are normal. There is no significant varus or valgus configuration. There is some narrowing of the medial femoral-tibial joint space which is now apparent. There is mild peripheral osteophyte formation of the medial and patellofemoral compartments. This appears increased. There is a small enthesophyte arising from the upper pole of the patella. No fracture or dislocation is seen. There is increased thickening to the patellar tendon region and a possible small joint effusion in the suprapatellar region. XR/XR knee RT 4V IMPRESSION: 1. There is mildly increased osteoarthritic change of the medial and patellofemoral compartment. 2. There may be a small joint effusion in the suprapatellar region with increased thickening of the patellar tendon.
== END 2021-11-10 10:38 | disposition home or self-care (01) ==
LOC: HO.XRAY 10:37
PROVIDERS: PCP Family Medicine; Visit Provider Family Medicine
DX: M25.561 Pain in right knee (principal); M54.9 Dorsalgia, unspecified; M77.11 Lateral epicondylitis, right elbow
CPT/HCPCS: 73564; 99212

== ENCOUNTER → 2022-01-01 09:49 | Outpatient (BNVA) | payer MEDICAID, SELFPAY | PROVIDERS: PCP Family Medicine; Visit Provider Urology | DX: Z13.89 Encounter for screening for other disorder (principal) ==

== ENCOUNTER 2022-03-15 09:31 | Outpatient (REF) | payer MEDICAID, SELFPAY ==
--- NOTE | ~2022-03-15 | XR_ITS ---
EXAMINATION: XR cervical spine 3V, XR thoracic spine 3V, XR lumbar spine 2-3V CLINICAL INFORMATION: Reason for Exam PAIN COMPARISON: None. TECHNIQUE: AP, lateral, open-mouth odontoid, and Fuchs view cervical spine; AP, lateral, swimmer's lateral view thoracic spine; 3 views lumbar spine FINDINGS: Cervical spine: No subluxation or fracture. No prevertebral soft tissue swelling. Anterior longitudinal ligament ossification cervical spine. Preserved intervertebral disc heights compatible resembling DISH. Atlantodens interval is maintained. C1-C2 alignment is preserved. Thoracic spine: Normal alignment. No listhesis. Vertebral body heights are maintained. Bridging thin syndesmophytes are present. Partial ossification of the supraspinous ligament in the lower thoracic spine. Lumbar spine: No subluxation or fracture. Vertebral body heights are maintained. Intervertebral disc space heights are preserved. Prominent anterior endplate proliferative bone throughout the lumbar spine. No pars defects. Lower lumbar facet arthrosis at L5-S1 bilaterally. Mild vascular calcifications. Ankylosis of the SI joints noted. XR/XR lumbar spine 2-3V IMPRESSION: 1. No subluxation or fracture identified. 2. Ankylosis of the bilateral SI joints with anterior longitudinal ligament ossification in the cervical spine and bridging syndesmophytes in the thoracic spine. 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
--- NOTE | ~2022-03-15 | XR_ITS ---
EXAMINATION: XR cervical spine 3V, XR thoracic spine 3V, XR lumbar spine 2-3V CLINICAL INFORMATION: Reason for Exam PAIN COMPARISON: None. TECHNIQUE: AP, lateral, open-mouth odontoid, and Fuchs view cervical spine; AP, lateral, swimmer's lateral view thoracic spine; 3 views lumbar spine FINDINGS: Cervical spine: No subluxation or fracture. No prevertebral soft tissue swelling. Anterior longitudinal ligament ossification cervical spine. Preserved intervertebral disc heights compatible resembling DISH. Atlantodens interval is maintained. C1-C2 alignment is preserved. Thoracic spine: Normal alignment. No listhesis. Vertebral body heights are maintained. Bridging thin syndesmophytes are present. Partial ossification of the supraspinous ligament in the lower thoracic spine. Lumbar spine: No subluxation or fracture. Vertebral body heights are maintained. Intervertebral disc space heights are preserved. Prominent anterior endplate proliferative bone throughout the lumbar spine. No pars defects. Lower lumbar facet arthrosis at L5-S1 bilaterally. Mild vascular calcifications. Ankylosis of the SI joints noted. XR/XR thoracic spine 3V IMPRESSION: 1. No subluxation or fracture identified. 2. Ankylosis of the bilateral SI joints with anterior longitudinal ligament ossification in the cervical spine and bridging syndesmophytes in the thoracic spine. 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
--- NOTE | ~2022-03-15 | XR_ITS ---
EXAMINATION: XR cervical spine 3V, XR thoracic spine 3V, XR lumbar spine 2-3V CLINICAL INFORMATION: Reason for Exam PAIN COMPARISON: None. TECHNIQUE: AP, lateral, open-mouth odontoid, and Fuchs view cervical spine; AP, lateral, swimmer's lateral view thoracic spine; 3 views lumbar spine FINDINGS: Cervical spine: No subluxation or fracture. No prevertebral soft tissue swelling. Anterior longitudinal ligament ossification cervical spine. Preserved intervertebral disc heights compatible resembling DISH. Atlantodens interval is maintained. C1-C2 alignment is preserved. Thoracic spine: Normal alignment. No listhesis. Vertebral body heights are maintained. Bridging thin syndesmophytes are present. Partial ossification of the supraspinous ligament in the lower thoracic spine. Lumbar spine: No subluxation or fracture. Vertebral body heights are maintained. Intervertebral disc space heights are preserved. Prominent anterior endplate proliferative bone throughout the lumbar spine. No pars defects. Lower lumbar facet arthrosis at L5-S1 bilaterally. Mild vascular calcifications. Ankylosis of the SI joints noted. XR/XR cervical spine 3V IMPRESSION: 1. No subluxation or fracture identified. 2. Ankylosis of the bilateral SI joints with anterior longitudinal ligament ossification in the cervical spine and bridging syndesmophytes in the thoracic spine. 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
== END 2022-03-15 09:32 | disposition home or self-care (01) ==
LOC: HO.XRAY 09:31
PROVIDERS: PCP Family Medicine; Visit Provider Family Medicine
DX: M54.2 Cervicalgia (principal); M54.50 Low back pain, unspecified; M54.6 Pain in thoracic spine
CPT/HCPCS: 72040; 72072; 72100

== ENCOUNTER 2022-03-29 06:32 | Day surgery (SDC) | payer MEDICAID, SELFPAY ==
--- NOTE | 2022-03-26 12:16 | P.CONAN_ITS ---
Documented by User: Norma Harley NP 03/26/22 12:17 HPI - Anesthesia Eval Consult details Narrative: 62yo M for Cystoscopy s/p cysto 06/2021 with GA-LMA 4 Many cystos/TURBT PMFSH Active Problems Active Problems: All Active Problems (Updated 11/10/21 @ 11:35 by Catherine Rios NP) Lateral epicondylitis, right elbow (Acute) Bladder cancer (Acute) Ankylosing spondylitis (Acute) Past Medical History Medical History Ankylosing spondylitis Arthritis Back pain Bipolar 1 disorder Bladder cancer BPH (benign prostatic hyperplasia) Bronchitis Depression Elevated cholesterol HTN (hypertension) Hx of bladder cancer Hx of gastroesophageal reflux (GERD) Hx of hepatitis C Positive PPD PTSD (post-traumatic stress disorder) Smoker Surgical History Surgical History History of inguinal hernia repair Hx of arthroscopy of left knee Hx of colonoscopy Hx of cystoscopy Hx of cystoscopy Hx of cystoscopy Hx of hand surgery Hx of hernia repair History of Problems with Anesthesia: No Social History Social History Are you a primary out of school hours care worker to a significant other at home: No Do you presently have visiting nurse or other home services: No Alcohol intake: never Patient Tobacco Use Status: Current everyday Tobacco user Tobacco use type: Cigarette Cigarettes Per Day: 10 Years Smoked: 28 Are you DNR?: No Advance Directives: Yes Advance Directives on File: Yes Advance Directives Date on File: 06/10/20 Nutrition Risks: No Nutritional Risk Meds Allergies Allergy/AdvReac Type Severity Reaction Status Date / Time Iodinated Contrast Media Allergy Severe TACHYCARDIA, Verified 03/29/22 07:16 [IV DYE, IODINE CONTAINING DIFFICULTY CONTRAST ] BREATHING, CHEST PAIN Penicillins [PENICILLINS] Allergy Severe SHAKING,CHI Verified 03/23/22 09:52 LLS seafood Allergy Severe itching/hiv Verified 03/23/22 09:52 es/nausea-v omiting Home Medications Medication Instructions Recorded Confirmed Last Taken Type amitriptyline 10 mg tablet 10 mg PO BEDTIME 07/16/20 03/23/22 Unknown History cholecalciferol (vitamin D3) 25 25 mcg PO DAILY 07/16/20 03/23/22 Unknown History mcg (1,000 unit) capsule (Vitamin D3) cyclobenzaprine 10 mg tablet 10 mg PO TID PRN Muscle Spasm 07/16/20 03/23/22 Unknown History dicyclomine 10 mg capsule 10 mg PO BID 07/16/20 03/23/22 Unknown History lisinopril 5 mg tablet 5 mg PO DAILY 07/16/20 03/23/22 Unknown History loratadine 10 mg tablet (Claritin) 10 mg PO DAILY 07/16/20 03/23/22 Unknown History sertraline 100 mg tablet 100 mg PO DAILY 07/16/20 03/23/22 Unknown History tamsulosin 0.4 mg capsule 0.4 mg PO BEDTIME 07/16/20 03/23/22 Unknown History tramadol 50 mg tablet 50 mg PO TID PRN Pain 07/16/20 03/23/22 Unknown History zolpidem 5 mg tablet 5 mg PO BEDTIME PRN Insomnia 07/16/20 03/23/22 Unknown History acetaminophen 650 mg 650 mg PO Q8H PRN pain 11/10/21 03/23/22 Unknown History tablet,extended release (Mapap Arthritis Pain) aspirin 81 mg tablet,delayed 81 mg PO DAILY 11/10/21 03/23/22 Unknown History release diclofenac sodium 1 % topical gel 2 g topical TID PRN pain 11/10/21 03/23/22 Unknown History calcium carbonate 600 mg-vitamin 1 tab PO DAILY 01/01/22 03/23/22 Unknown History D3 10 mcg (400 unit) tablet gabapentin 600 mg tablet 600 mg PO TID 01/01/22 03/23/22 Unknown History atorvastatin 40 mg tablet 1 tab PO DAILY 03/23/22 03/23/22 Unknown History bupropion HCl 100 mg tablet,12 hr 1 tab PO QAM 03/23/22 03/23/22 Unknown History sustained-release duloxetine 60 mg capsule,delayed 1 cap PO DAILY 03/23/22 03/23/22 Unknown History release Exam Exam Date and Time: March 26, 2022 121 Assessment and Plan Assessment Anesthesia Assessment: Chart Reviewed Final Anesthetic Review History of Problems with Anesthesia: No Documented by User: Elijah Yang MD 03/29/22 08:55 PMFSH Past Medical History Medical History Ankylosing spondylitis Arthritis Back pain Bipolar 1 disorder Bladder cancer BPH (benign prostatic hyperplasia) Bronchitis Depression Elevated cholesterol HTN (hypertension) Hx of bladder cancer Hx of gastroesophageal reflux (GERD) Hx of hepatitis C Positive PPD PTSD (post-traumatic stress disorder) Smoker Family History Family history of problems with anesthesia: No Surgical History Surgical History History of inguinal hernia repair Hx of arthroscopy of left knee Hx of colonoscopy Hx of cystoscopy Hx of cystoscopy Hx of cystoscopy Hx of hand surgery Hx of hernia repair Social History Social History Are you a primary out of school hours care worker to a significant other at home: No Do you presently have visiting nurse or other home services: No Alcohol intake: never Patient Tobacco Use Status: Current everyday Tobacco user Tobacco use type: Cigarette Cigarettes Per Day: 10 Years Smoked: 28 Are you DNR?: No Advance Directives: Yes Advance Directives on File: Yes Advance Directives Date on File: 06/10/20 Nutrition Risks: No Nutritional Risk Meds Allergies Allergy/AdvReac Type Severity Reaction Status Date / Time Iodinated Contrast Media Allergy Severe TACHYCARDIA, Verified 03/29/22 07:16 [IV DYE, IODINE CONTAINING DIFFICULTY CONTRAST ] BREATHING, CHEST PAIN Penicillins [PENICILLINS] Allergy Severe SHAKING,CHI Verified 03/23/22 09:52 LLS seafood Allergy Severe itching/hiv Verified 03/23/22 09:52 es/nausea-v omiting Home Medications Medication Instructions Recorded Confirmed Last Taken Type amitriptyline 10 mg tablet 10 mg PO BEDTIME 07/16/20 03/23/22 Unknown History cholecalciferol (vitamin D3) 25 25 mcg PO DAILY 07/16/20 03/23/22 Unknown History mcg (1,000 unit) capsule (Vitamin D3) cyclobenzaprine 10 mg tablet 10 mg PO TID PRN Muscle Spasm 07/16/20 03/23/22 Unknown History dicyclomine 10 mg capsule 10 mg PO BID 07/16/20 03/23/22 Unknown History lisinopril 5 mg tablet 5 mg PO DAILY 07/16/20 03/23/22 Unknown History loratadine 10 mg tablet (Claritin) 10 mg PO DAILY 07/16/20 03/23/22 Unknown History sertraline 100 mg tablet 100 mg PO DAILY 07/16/20 03/23/22 Unknown History tamsulosin 0.4 mg capsule 0.4 mg PO BEDTIME 07/16/20 03/23/22 Unknown History tramadol 50 mg tablet 50 mg PO TID PRN Pain 07/16/20 03/23/22 Unknown History zolpidem 5 mg tablet 5 mg PO BEDTIME PRN Insomnia 07/16/20 03/23/22 Unknown History acetaminophen 650 mg 650 mg PO Q8H PRN pain 11/10/21 03/23/22 Unknown History tablet,extended release (Mapap Arthritis Pain) aspirin 81 mg tablet,delayed 81 mg PO DAILY 11/10/21 03/23/22 Unknown History release diclofenac sodium 1 % topical gel 2 g topical TID PRN pain 11/10/21 03/23/22 Unknown History calcium carbonate 600 mg-vitamin 1 tab PO DAILY 01/01/22 03/23/22 Unknown History D3 10 mcg (400 unit) tablet gabapentin 600 mg tablet 600 mg PO TID 01/01/22 03/23/22 Unknown History atorvastatin 40 mg tablet 1 tab PO DAILY 03/23/22 03/23/22 Unknown History bupropion HCl 100 mg tablet,12 hr 1 tab PO QAM 03/23/22 03/23/22 Unknown History sustained-release duloxetine 60 mg capsule,delayed 1 cap PO DAILY 03/23/22 03/23/22 Unknown History release Exam Airway Mallampati Class: III TM Dist: >3cm Neck ROM: Full Loose/Missing/Broken Teeth: Yes and Upper Heart: rrr Lungs: clear Assessment and Plan Final Anesthetic Review Family History of Problems with Anesthesia: No NPO: Yes ASA Class: III Final Preanesthetic Review: No Changes in Pt Med Stat, Meds/Allgs Chart Reviewed, Consent Obtained/Reviewed and Anes Risks/Benef Reviewed Patient Risk: Intermediate Procedure Risk: Low Anesthetic Plan Anesthetic Plan: MAC: Disposition: Standard PACU
[2022-03-29 06:56] VITALS: BMI 28.0
[2022-03-29 07:02] VITALS: BP 103/54; PULSE 60; RESP 18; TEMP 36.4; O2SAT 97
[2022-03-29] MEDS: Lactated Ringers 1,000 ML 100 ML IVCONT (07:05)
[2022-03-29] MEDS: levoFLOXacin 500 MG TABLET PO (08:08)
--- NOTE | 2022-03-29 08:46 | MHC.SHP ---
Pre-Procedural Eval Section A Date of Service: 03/29/22 The patient is an INPATIENT: No Changes since office visit: No Cold of Flu in the past 2 weeks, No New Medical Problems, No Changes in Medication and No Patient answered all questions The History & Physical has been completed within 30 days and I have reviewed it.: Yes Section B Chief Complaint: neoplasm of bladder Details of Present Illness: check cystoscopy Allergies: Allergies Allergy/AdvReac Type Severity Reaction Status Date / Time Iodinated Contrast Media Allergy Severe TACHYCARDIA, Verified 03/29/22 07:16 [IV DYE, IODINE CONTAINING DIFFICULTY CONTRAST ] BREATHING, CHEST PAIN Penicillins [PENICILLINS] Allergy Severe SHAKING,CHI Verified 03/23/22 09:52 LLS seafood Allergy Severe itching/hiv Verified 03/23/22 09:52 es/nausea-v omiting Plan Diagnosis/Plan: Unchanged ( check cystoscopy) I have reviewed the history and physical and performed a pertinent physical examination on my patient. No changes have occurred unless specified.
--- NOTE | 2022-03-29 09:10 | P.OP_ITS ---
Operative Note Operative Note Date of Service: 03/29/22 Narrative: ?PreOperative Diagnosis:? Bladder cancer Post Operative Diagnosis:? Bladder cancer Procedure:? Cystoscopy Surgeon: Dr Samuel Cox Anesthesia:? Sedation Indications for procedure: Longstanding bladder cancer.? On 6 monthly surveillance.? Last procedure small lesion Procedure: After informed consent was verified the patient was brought to the operating room and placed in a supine position.? Anesthesia was administered per protocol. After he had been prepped and draped in sterile fashion flexible cystoscopy was performed.? No abnormality found in the anterior posterior urethra.? Bladder examined in its entirety.? Prior area scarring at back wall dome seen.? No l esions seen within bladder. He tolerated procedure well Repeat procedure in 6 months Pathology: None Drains: None none
[2022-03-29 09:21] VITALS: BP 130/59; PULSE 67; RESP 14; TEMP 36.3; O2SAT 100
[2022-03-29 09:36] VITALS: BP 113/70; PULSE 63; RESP 16; TEMP 36.4; O2SAT 98
[2022-03-29 09:51] VITALS: BP 120/70; PULSE 60; RESP 16; TEMP 36.4; O2SAT 97
== END 2022-03-29 10:17 | disposition home or self-care (01) ==
PROVIDERS: PCP Family Medicine; Visit Provider Urology
PROC: 0TJB8ZZ Inspection of Bladder, Via Natural or Artificial Opening Endoscopic (ICD-10-PCS; CPT 52000; principal; 2022-03-29 08:10)
DX: C67.9 Malignant neoplasm of bladder, unspecified (principal); N40.0 Benign prostatic hyperplasia without lower urinary tract symptoms; I10 Essential (primary) hypertension; E78.00 Pure hypercholesterolemia, unspecified; F31.9 Bipolar disorder, unspecified; M15.9 Polyosteoarthritis, unspecified; M54.9 Dorsalgia, unspecified; R76.11 Nonspecific reaction to tuberculin skin test without active tuberculosis; Z86.19 Personal history of other infectious and parasitic diseases; Z79.82 Long term (current) use of aspirin; Z79.899 Other long term (current) drug therapy; Z88.0 Allergy status to penicillin; Z91.041 Radiographic dye allergy status; F17.210 Nicotine dependence, cigarettes, uncomplicated
CPT/HCPCS: 52000; J2250; J3010

== ENCOUNTER 2022-04-12 13:45 | Outpatient (REF) | payer MEDICAID, SELFPAY ==
[2022-04-12 13:58] LABS: MANUAL DIFF FLAG NO
[2022-04-12 14:35] LABS: Basophils Percent Auto 0.4 % (0-2); Eosinophils Absolute Auto 0.2 X10*3/uL (0.0-0.4); Eosinophils Percent Auto 2.3 % (0-4); Hematocrit 43.7 % (42.0-52.0); Hemoglobin 14.6 g/dl (14.0-18.0); Imm Gran Abs Auto 0.02 X10*3/uL (0.00-0.03); Imm Gran Pct Auto 0.3 % (0.0-0.4); Lymphocytes Absolute Auto 1.9 X10*3/uL (1.2-4.9); Lymphocytes Percent Auto 25.4 % (20-40); Mean Corpuscular HGB Conc 33.4 g/dl (31.0-36.0); Mean Corpuscular Hemoglobin 28.1 pg (27.0-33.0); Mean Platelet Volume 11.3 fL (9.4-12.4); Monocytes Absolute Auto 0.4 X10*3/uL (0.1-1.2); Monocytes Percent Auto 5.9 % (2-11); Neutrophils Absolute Auto 4.9 x10*3/uL (2.0-8.3); Neutrophils Percent Auto 65.7 % (45-73); Platelet Count 191 X10*3/uL (160-400); Red Cell Distribution Width 13.3 % (11.0-16.0); White Blood Count 7.4 X10*3/uL (4.8-10.8)
[2022-04-12 14:38] LABS: Estimated Average Glucose 97 mg/dL
[2022-04-12 15:05] LABS: Alanine Aminotransferase 13 U/L (0-40); Albumin Level 4.6 g/dL (3.5-5.0); Alkaline Phosphatase 70 U/L (39-117); Anion Gap 13 (12-20); Aspartate Amino Transferase 14 U/L (5-37); Bilirubin Direct 0.2 mg/dL (0.0-0.5); Bilirubin Total 0.6 mg/dL (0.0-1.0); Blood Urea Nitrogen 21 mg/dL (9-16); C Reactive Protein 0.42 mg/dL (< or = 0.50); Calcium 9.6 mg/dL (8.4-10.2); Carbon Dioxide 24 mmol/L (22-29); Chloride 107 mmol/L (96-108); Cholesterol 131 mg/dL; Estimated Glomerular Filt Rate > 60; Glucose Random 98 mg/dL (60-115); HDL Cholesterol 30 mg/dL; Iron 84 mcg/dL (45-160); LDL Cholesterol Calculated 60 mg/dl; Percent Iron Saturation 30 % (15-50); Potassium 4.2 mmol/L (3.3-5.1); Sodium 140 mmol/L (135-145); Total Iron Binding Capacity 281 mcg/dL (228-428); Total Protein 7.3 g/dL (6.5-8.0); Triglycerides 206 mg/dL; Unsaturated Iron Binding 197 ug/dL
[2022-04-12 15:21] LABS: Erythrocyte Sedimentation Rate 6 MM/HR (0-15)
[2022-04-12 15:27] LABS: Ferritin 217 ng/mL (20-250); Free T4 (Free Thyroxine) 0.92 ng/dL (0.71-1.85); Prostate Specific Antigen 0.31 ng/mL (<0.05-4.0); Thyroid Stimulating Hormone 1.38 uIU/mL (0.32-4.0); Vitamin D 25-OH Total 50.1 ng/mL (>30)
[2022-04-12 15:35] LABS: Folate 10.1 ng/mL (> or = 4.0); Vitamin B12 444 pg/mL (200-900)
[2022-04-12 17:32] LABS: Creatinine Urine 29.19 mg/dL; Microalbum/Creatinine Ratio Ur 801.6 ug/mg cr
[2022-04-13 07:48] LABS: HIV AB/AG Nonreactive (Nonreactive); HIV Num 1 0.06 S/CO (0.00-0.99); ~HepC Num1 0.14 S/CO (0.00-0.79); ~Hepatitis C Antibody Nonreactive (Nonreactive)
[2022-04-15 00:02] LABS: TS Negative Control Passed; TS Panel A 0; TS Panel B 0; TS Positive Control Passed; TSpotTB Negative (Negative)
== END 2022-04-12 13:46 | disposition home or self-care (01) ==
LOC: HO.LAB 13:45
PROVIDERS: PCP Family Medicine; Visit Provider Family Medicine
DX: I10 Essential (primary) hypertension (principal); E78.5 Hyperlipidemia, unspecified; R63.4 Abnormal weight loss; Z12.5 Encounter for screening for malignant neoplasm of prostate
CPT/HCPCS: 36415; 80048; 80061; 80076; 82043; 82306; 82607; 82728; 82746; 83036; 83540; 84134; 84153; 84439; 84443; 85025; 85652; 86140; 86481; 86803; 87389

== ENCOUNTER 2022-04-15 07:55 | Outpatient (REF) | payer MEDICAID, SELFPAY ==
--- NOTE | ~2022-04-15 | XR_ITS ---
EXAMINATION: XR KNEE, LEFT XR KNEE AP STANDING CLINICAL INFORMATION: Bilateral knee pain. COMPARISON: None TECHNIQUE: Lateral and axial views of the left knee. AP bilateral standing view of the knees was obtained. FINDINGS: Bony alignment and mineralization are normal. No varus or valgus configuration is seen bilaterally. The lateral, medial and patellofemoral compartments of the left knee are well-maintained. There is mild peripheral osteophyte formation of the left medial and patellofemoral compartments. There is no left knee joint effusion. The lateral and medial joint space compartments of the right knee are well-maintained. There is mild peripheral osteophyte formation of the medial joint space compartment. No fracture or dislocation is seen. There is no foreign body. XR/XR knee LT 2V IMPRESSION: 1. There is mild osteoarthritic change of the medial joint space compartments of the bilateral knees and of the left patellofemoral compartment. 2. No varus or valgus configuration is seen bilaterally. 3. There is no fracture or dislocation.
--- NOTE | ~2022-04-15 | XR_ITS ---
EXAMINATION: XR KNEE, LEFT XR KNEE AP STANDING CLINICAL INFORMATION: Bilateral knee pain. COMPARISON: None TECHNIQUE: Lateral and axial views of the left knee. AP bilateral standing view of the knees was obtained. FINDINGS: Bony alignment and mineralization are normal. No varus or valgus configuration is seen bilaterally. The lateral, medial and patellofemoral compartments of the left knee are well-maintained. There is mild peripheral osteophyte formation of the left medial and patellofemoral compartments. There is no left knee joint effusion. The lateral and medial joint space compartments of the right knee are well-maintained. There is mild peripheral osteophyte formation of the medial joint space compartment. No fracture or dislocation is seen. There is no foreign body. XR/XR knee standing BI IMPRESSION: 1. There is mild osteoarthritic change of the medial joint space compartments of the bilateral knees and of the left patellofemoral compartment. 2. No varus or valgus configuration is seen bilaterally. 3. There is no fracture or dislocation.
== END 2022-04-15 07:56 | disposition home or self-care (01) ==
LOC: HO.HOSX 07:55
PROVIDERS: Visit Provider Physician Assistant
DX: M22.2X1 Patellofemoral disorders, right knee (principal); M22.2X2 Patellofemoral disorders, left knee
CPT/HCPCS: 73560; 73565; 99212

== ENCOUNTER → 2022-05-07 09:32 | Outpatient (BNVA) | payer MEDICAID, SELFPAY | PROVIDERS: PCP Family Medicine; Visit Provider Nurse Practitioner Family | DX: M45.9 Ankylosing spondylitis of unspecified sites in spine (principal); M77.11 Lateral epicondylitis, right elbow | CPT/HCPCS: 99212 ==

== ENCOUNTER 2022-09-07 13:25 | Outpatient (REF) | payer MEDICAID, SELFPAY ==
[2022-09-07 17:13] LABS: Urine Cytology See Pathology rpt
== END 2022-09-07 13:26 | disposition home or self-care (01) ==
LOC: HO.LAB 13:25
PROVIDERS: PCP Family Medicine; Visit Provider Urology
DX: C67.9 Malignant neoplasm of bladder, unspecified (principal)
CPT/HCPCS: 88112; 99212

== ENCOUNTER 2022-09-27 06:31 | Day surgery (SDC) | payer MEDICAID, SELFPAY ==
[2022-09-27 07:18] VITALS: BP 120/55; PULSE 65; RESP 18; TEMP 36.1; O2SAT 96; BMI 24.3
[2022-09-27 07:20] VITALS: BMI 24.3
--- NOTE | 2022-09-27 08:37 | MHC.SHP ---
Pre-Procedural Eval Section A Date of Service: 09/27/22 The patient is an INPATIENT: No Changes since office visit: No Cold of Flu in the past 2 weeks, No New Medical Problems, No Changes in Medication and No Patient answered all questions The History & Physical has been completed within 30 days and I have reviewed it.: Yes Section B Chief Complaint: Malignant neoplasm of bladder, unspecified Details of Present Illness: check cystoscopy since does not tolerate in office Allergies: Allergies Allergy/AdvReac Type Severity Reaction Status Date / Time Iodinated Contrast Media Allergy Severe TACHYCARDIA, Verified 09/21/22 15:23 [IV DYE, IODINE CONTAINING DIFFICULTY CONTRAST ] BREATHING, CHEST PAIN Penicillins [PENICILLINS] Allergy Severe SHAKING,CHI Verified 09/21/22 15:23 LLS seafood Allergy Severe itching/hiv Verified 09/21/22 15:23 es/nausea-v omiting Review of Systems Sugical H&P ROS: Negative: Constitution, Cardiovascular, Respiratory, Neurological, Psychiatric, Hem-Onc, Allergic/Immunologic, Gastrointestinal, Genitourinary, Musculoskeletal, Integumentary, Endocrine and Eyes/Ears/Nose/Throat Exam Surgical H&P Exam: Normal: HEENT, Normal: Heart, Normal: Lungs, Normal: Extremities, Normal: Abdomen, Normal: Skin and Normal: Neurological Plan Diagnosis/Plan: Unchanged ( check cystoscopy since does not tolerate in office) I have reviewed the history and physical and performed a pertinent physical examination on my patient. No changes have occurred unless specified. Time Spent With Patient Time: Total time managing care of this patient today ____ minutes.
--- NOTE | 2022-09-27 08:42 | HO.ANESPROP2 ---
HPI - Anesthesia Eval Consult details Narrative: cystoscopy PMFSH Active Problems Active Problems: All Active Problems (Updated 04/15/22 @ 10:52 by Sonali Null) Lateral epicondylitis, right elbow (Acute) Patellofemoral arthralgia of both knees (Acute) Patellofemoral arthritis (Acute) Bladder cancer (Acute) Ankylosing spondylitis (Acute) Past Medical History Medical History Ankylosing spondylitis Arthritis Back pain Bipolar 1 disorder Bladder cancer BPH (benign prostatic hyperplasia) Bronchitis Depression Elevated cholesterol HTN (hypertension) Hx of bladder cancer Hx of gastroesophageal reflux (GERD) Hx of hepatitis C Positive PPD PTSD (post-traumatic stress disorder) Smoker Family History Family history of problems with anesthesia: No Surgical History Surgical History (Updated 09/21/22 @ 14:41 by Milagros Roblero RN) History of inguinal hernia repair Hx of arthroscopy of left knee Hx of colonoscopy Hx of cystoscopy Hx of cystoscopy Hx of cystoscopy Hx of hand surgery Hx of hernia repair History of Problems with Anesthesia: No Social History Social History Are you a primary healthcare science specialist to a significant other at home: No Do you presently have visiting nurse or other home services: No Alcohol intake: never Patient Tobacco Use Status: Current everyday Tobacco user Tobacco use type: Cigarette Cigarettes Per Day: 6 Years Smoked: 28 Date Education Initiated: 09/27/22 Use of substances other than those prescribed or required for medical reasons: No Are you DNR?: No Advance Directives: Yes Advance Directives on File: Yes Advance Directives Date on File: 06/10/20 Current occupational status: disabled Current occupation: rt hand Meds Allergies Allergy/AdvReac Type Severity Reaction Status Date / Time Iodinated Contrast Media Allergy Severe TACHYCARDIA, Verified 09/21/22 15:23 [IV DYE, IODINE CONTAINING DIFFICULTY CONTRAST ] BREATHING, CHEST PAIN Penicillins [PENICILLINS] Allergy Severe SHAKING,CHI Verified 09/21/22 15:23 LLS seafood Allergy Severe itching/hiv Verified 09/21/22 15:23 es/nausea-v omiting Home Medications Medication Instructions Recorded Confirmed Last Taken Type amitriptyline 10 mg tablet 10 mg PO BEDTIME 07/16/20 09/21/22 Unknown History cholecalciferol (vitamin D3) 25 25 mcg PO DAILY 07/16/20 09/21/22 Unknown History mcg (1,000 unit) capsule (Vitamin D3) cyclobenzaprine 10 mg tablet 10 mg PO TID PRN Muscle Spasm 07/16/20 09/21/22 Unknown History dicyclomine 10 mg capsule 10 mg PO BID 07/16/20 09/21/22 Unknown History lisinopril 5 mg tablet 5 mg PO DAILY 07/16/20 09/21/22 Unknown History loratadine 10 mg tablet (Claritin) 10 mg PO DAILY 07/16/20 09/21/22 Unknown History sertraline 100 mg tablet 100 mg PO DAILY 07/16/20 09/21/22 Unknown History tramadol 50 mg tablet 50 mg PO TID PRN Pain 07/16/20 09/21/22 Unknown History zolpidem 5 mg tablet 5 mg PO BEDTIME PRN Insomnia 07/16/20 09/21/22 Unknown History acetaminophen 650 mg 650 mg PO Q8H PRN pain 11/10/21 09/21/22 Unknown History tablet,extended release (Mapap Arthritis Pain) diclofenac sodium 1 % topical gel 2 g topical TID PRN pain 11/10/21 09/21/22 Unknown History gabapentin 600 mg tablet 600 mg PO TID 01/01/22 09/21/22 Unknown History bupropion HCl 100 mg tablet,12 hr 1 tab PO QAM 03/23/22 09/21/22 Unknown History sustained-release duloxetine 60 mg capsule,delayed 1 cap PO DAILY 03/23/22 09/21/22 Unknown History release atorvastatin 80 mg tablet 80 mg PO DAILY 09/07/22 09/21/22 Unknown History blood pressure test kit-large #1 ea 09/07/22 Unknown History celecoxib 200 mg capsule 200 mg PO DAILY 09/07/22 09/21/22 Unknown History prazosin 1 mg capsule 1 mg PO BEDTIME 09/07/22 Unknown History Exam Exam Date and Time: September 27, 2022 0842 Height,Weight and Vital Signs: Height 5 ft 10 in Weight 77.111 kg Last Vital Signs Temp 97.0 F 09/27/22 07:18 Pulse 65 09/27/22 07:18 Resp 18 09/27/22 07:18 BP 120/55 L 09/27/22 07:18 Pulse Ox 96 09/27/22 07:18 O2 Del Method 09/27/22 07:18 Airway Mallampati Class: II TM Dist: >3cm Neck ROM: Limited Loose/Missing/Broken Teeth: No Heart: ok Lungs: ok Assessment and Plan Final Anesthetic Review Family History of Problems with Anesthesia: No History of Problems with Anesthesia: No NPO: Yes ASA Class: II Final Preanesthetic Review: No Changes in Pt Med Stat, Meds/Allgs Chart Reviewed, Consent Obtained/Reviewed and Anes Risks/Benef Reviewed Patient Risk: Intermediate Procedure Risk: Low Anesthetic Plan Anesthetic Plan: GA and Agree w/ Assess. and Plan Disposition: Standard PACU
[2022-09-27] MEDS: levoFLOXacin 500 MG TABLET PO (08:47)
--- NOTE | 2022-09-27 09:12 | W.PM.OPN ---
Operative Note Operative Note Date of Service: 09/27/22 Narrative: PreOperative Diagnosis:? Bladder cancer Post Operative Diagnosis:? Bladder cancer Procedure:? Cystoscopy Surgeon: Dr Samuel Cox Anesthesia:? Sedation Indications for procedure: Longstanding bladder cancer.? On 6 monthly surveillance.? Last procedure small lesion Procedure: After informed consent was verified the patient was brought to the operating room and placed in a supine position.? Anesthesia was administered per protocol. After he had been prepped and draped in sterile fashion flexible cystoscopy was performed.? No abnormality found in the anterior posterior urethra.? Bladder examined in its entirety.? Prior area scarring at back wall dome seen.? No lesions seen within bladder. He tolerated procedure well Repeat procedure in 6 months Pathology: None Drains: None none
[2022-09-27 09:14] VITALS: BP 84/50; PULSE 65; RESP 16; TEMP 36.7; O2SAT 94
[2022-09-27 09:29] VITALS: BP 113/56; PULSE 63; RESP 18; TEMP 36.6; O2SAT 99
== END 2022-09-27 10:59 | disposition home or self-care (01) ==
PROVIDERS: PCP Family Medicine; Visit Provider Urology
PROC: 0TJB8ZZ Inspection of Bladder, Via Natural or Artificial Opening Endoscopic (ICD-10-PCS; CPT 52000; principal; 2022-09-27 08:10)
DX: C67.9 Malignant neoplasm of bladder, unspecified (principal); N40.0 Benign prostatic hyperplasia without lower urinary tract symptoms; I10 Essential (primary) hypertension; E78.00 Pure hypercholesterolemia, unspecified; F31.9 Bipolar disorder, unspecified; F43.10 Post-traumatic stress disorder, unspecified; R76.11 Nonspecific reaction to tuberculin skin test without active tuberculosis; Z79.899 Other long term (current) drug therapy; Z88.0 Allergy status to penicillin; Z91.041 Radiographic dye allergy status; F17.210 Nicotine dependence, cigarettes, uncomplicated
CPT/HCPCS: 52000; J3010

== ENCOUNTER 2022-10-20 09:51 | Outpatient (REF) | payer MEDICAID, SELFPAY ==
[2022-10-20 11:33] LABS: MANUAL DIFF FLAG NO
[2022-10-20 12:02] LABS: Basophils Percent Auto 0.6 % (0-2); Eosinophils Absolute Auto 0.2 X10*3/uL (0.0-0.4); Eosinophils Percent Auto 2.4 % (0-4); Hematocrit 47.1 % (42.0-52.0); Hemoglobin 15.5 g/dl (14.0-18.0); Imm Gran Abs Auto 0.02 X10*3/uL (0.00-0.03); Imm Gran Pct Auto 0.3 % (0.0-0.4); Lymphocytes Absolute Auto 1.7 X10*3/uL (1.2-4.9); Lymphocytes Percent Auto 23.7 % (20-40); Mean Corpuscular HGB Conc 32.9 g/dl (31.0-36.0); Mean Corpuscular Hemoglobin 27.9 pg (27.0-33.0); Mean Corpuscular Volume 84.9 fL (80.0-98.0); Mean Platelet Volume 11.4 fL (9.4-12.4); Monocytes Absolute Auto 0.4 X10*3/uL (0.1-1.2); Monocytes Percent Auto 5.4 % (2-11); Neutrophils Absolute Auto 4.8 x10*3/uL (2.0-8.3); Neutrophils Percent Auto 67.6 % (45-73); Platelet Count 203 X10*3/uL (160-400); Red Blood Count 5.55 X10*6/uL (4.60-5.80); Red Cell Distribution Width 13.3 % (11.0-16.0); White Blood Count 7.1 X10*3/uL (4.8-10.8)
[2022-10-20 12:43] LABS: Alanine Aminotransferase 13 U/L (0-40); Albumin Level 4.5 g/dL (3.5-5.0); Alkaline Phosphatase 68 U/L (39-117); Anion Gap 12 (12-20); Aspartate Amino Transferase 14 U/L (5-37); Bilirubin Total 0.6 mg/dL (0.0-1.0); Blood Urea Nitrogen 22 mg/dL (9-16); C Reactive Protein 0.46 mg/dL (< or = 0.50); Calcium 9.5 mg/dL (8.4-10.2); Carbon Dioxide 25 mmol/L (22-29); Chloride 109 mmol/L (96-108); Estimated Glomerular Filt Rate > 60; Glucose Random 85 mg/dL (60-115); Potassium 4.5 mmol/L (3.3-5.1); Sodium 141 mmol/L (135-145); Total Protein 7.1 g/dL (6.5-8.0)
[2022-10-20 12:54] LABS: Erythrocyte Sedimentation Rate 7 MM/HR (0-15)
[2022-10-22 08:51] LABS: HBc Num1 0.05 S/CO (0.00-0.79); HBsAGNum1 0.28 S/CO (0.00-0.99); Hepatitis A Antibody IgM 0.47 Index (0-0.79); Hepatitis B Core Antibody Nonreactive (Nonreactive); Hepatitis B Surface Antigen Negative (Negative); ~HepC Num1 0.16 S/CO (0.00-0.79); ~Hepatitis A Antibody IgM Nonreactive (Nonreactive); ~Hepatitis B Surface Antibody NONREACTIVE (Nonreactive); ~Hepatitis C Antibody Nonreactive (Nonreactive)
[2022-10-22 15:59] LABS: TS Negative Control Passed; TS Panel A 0; TS Panel B 1; TS Positive Control Passed; TSpotTB Negative (Negative)
== END 2022-10-20 09:52 | disposition home or self-care (01) ==
LOC: HO.LAB 09:51
PROVIDERS: PCP Family Medicine; Visit Provider Nurse Practitioner Family
DX: M54.9 Dorsalgia, unspecified (principal)
CPT/HCPCS: 36415; 80053; 85025; 85652; 86140; 86481; 86704; 86706; 86709; 86803; 87340; 99212

== ENCOUNTER 2023-03-22 14:30 | Outpatient (AMB) | payer MEDICAID, SELFPAY ==
--- NOTE | 2023-03-22 14:30 | A.OFFVIS_ITS ---
Intake Intake Visit Reasons: post op Intake Note: Patient is present for Telephone Post Op Urology Med: None Antibiotic Allergy: Penicillins Blood Thinner: None Allergies Iodinated Contrast Media [IV DYE, IODINE CONTAINING CONTRAST ] Allergy (Severe, Verified 03/22/23 14:31) TACHYCARDIA, DIFFICULTY BREATHING, CHEST PAIN Penicillins [PENICILLINS] Allergy (Severe, Verified 03/22/23 14:31) SHAKING,CHILLS seafood Allergy (Severe, Verified 03/22/23 14:31) itching/hives/nausea-vomiting HPI HPI Comments History of Present Illness Details Azra is [place]. He is a patient of . He is seen for the following urologic condition - bladder cancer Surveillance cystoscopy to schedule in operating room Currently stable no other medical conditions On yearly review Bladder cancer superficial low-grade initial diagnosis February 2019 Diagnosis February 2019 TURBT February 2019 low-grade noninvasive Does not tolerate cystoscopy in office Check cystoscopy performed in operating room Prior cystoscopy - 12/24 cystoscopy with fulguration, 06/25 cystoscopy looks normal, 03/26 cysto negative, 09/27 cysto NAD Will continue with surveillance every year PFSH Medical History Ankylosing spondylitis Arthritis Back pain Bipolar 1 disorder Bladder cancer BPH (benign prostatic hyperplasia) Bronchitis Depression Elevated cholesterol HTN (hypertension) Hx of bladder cancer Hx of gastroesophageal reflux (GERD) Hx of hepatitis C Positive PPD PTSD (post-traumatic stress disorder) Smoker Surgical History History of inguinal hernia repair Hx of arthroscopy of left knee Hx of colonoscopy Hx of cystoscopy Hx of cystoscopy Hx of cystoscopy Hx of hand surgery Hx of hernia repair Social History Are you a primary patient care representative to a significant other at home: No Do you presently have visiting nurse or other home services: No Alcohol intake: never Patient Tobacco Use Status: Current everyday Tobacco user Tobacco use type: Cigarette Cigarettes Per Day: 6 Years Smoked: 28 Advance Directives Date on File: 06/10/20 Current occupational status: disabled Current occupation: rt hand Review of Systems Const All systems reviewed & are unremarkable except as noted in HPI and below Reports no additional complaints Resp Reports no additional complaints GI Reports no additional complaints Reports as per HPI Musc Reports no additional complaints Physical Exam Telemedicine evaluation Appropriate responses Regular breathing rate and rhythm HEENT Head: Yes normal to inspection Ears: hearing grossly normal bilaterally Eyes General: appearance normal, both eyes and all related structures Neck Neck: Yes normal visual inspection Chest Chest palpation & inspection: normal inspection of the chest Resp Effort & Inspection: normal respiratory effort and able to speak in complete sentences Assessment & Plan Assessment & Plan (1) Bladder cancer: Comment: Low-grade superficial Code(s): C67.9 - Malignant neoplasm of bladder, unspecified Qualifiers: Bladder location: unspecified site Qualified Code(s): C67.9 - Malignant neoplasm of bladder, unspecified Plan Check cysto in operating Risks, benefits and alternatives to therapy were discussed. These include but are not limited to infection, bleeding, damage to local organs and tissues, need for further interventions. Anesthetic risks regarding cardiac arrhythmia, blood clots, and potential mortality were discussed. The patient understands the typical recovery time and the outpatient nature of the procedure. After consideration of these risks the patient gives full informed consent and they wish to move ahead with the procedure. Patient Instructions: Imaging studies, laboratory and physical exam results were discussed and reviewed in detail. No major barriers to patient understanding were identified. An opportunity to ask questions regarding the treatment plan was provided. All questions were answered. The patient expressed understanding and agreement with the above treatment plan. The patient is aware they should contact our office by phone for worsening of th eir current condition or the appearance of new urologic symptoms. Compliance is encouraged with any medications and followup testing that is ordered. It is a privilege to participate in the urologic care of your patient. If you have any questions or concerns regarding treatment for the above conditions, or other urologic issues, please do not hesitate to contact me. The office telephone contact is [phone]. This note is constructed using voice recognition software. While every effort has been made to ensure accuracy staffing analyst errors may have been included. Yours sincerely, Dr Samuel Cox MD, [facility] - Urology Providers of Expert, Compassionate Care for the Genitourinary System Telehealth Telehealth Location of provider rendering services: practice address Location of patient: address on file Patient Identification confirmed using: Name, : Yes Telehealth method: voice only Patient verbally consented to treatment: Yes Patient verbally consented to billing insurance company: Yes Patient informed of any privacy concerns related to visit: Yes Coding Level of Care Code Tele Est Pt Level 3 (35788) Diagnoses Bladder cancer C67.9 Bladder location: unspecified site
== END 2023-03-22 15:37 | disposition home or self-care (01) ==
LOC: HO.HUSH 14:30
PROVIDERS: PCP Family Medicine; Visit Provider Urology
DX: C67.9 Malignant neoplasm of bladder, unspecified (principal)
CPT/HCPCS: 99213

== ENCOUNTER → 2023-03-22 14:30 | Outpatient (BNVA) | payer MEDICAID, SELFPAY | PROVIDERS: PCP Family Medicine; Visit Provider Urology ==

== ENCOUNTER 2023-07-26 14:00 | Outpatient (AMB) | payer MEDICAID, SELFPAY ==
--- NOTE | 2023-07-26 14:16 | MHC.OFFVIS ---
Intake Intake Visit Reasons: OR Cysto consult (yearly) Intake Note: Patient is Present for Follow Up Urology Medication: None Antibiotic Allergies: Penicillins Blood Thinners: None Allergies Iodinated Contrast Media [IV DYE, IODINE CONTAINING CONTRAST ] Allergy (Severe, Verified 03/22/23 14:31) TACHYCARDIA, DIFFICULTY BREATHING, CHEST PAIN Penicillins [PENICILLINS] Allergy (Severe, Verified 03/22/23 14:31) SHAKING,CHILLS seafood Allergy (Severe, Verified 03/22/23 14:31) itching/hives/nausea-vomiting HPI HPI Comments History of Present Illness Details Az[place] is [place]. He is a patient of . He is seen for the following urologic condition - bladder cancer Surveillance cystoscopy to schedule in operating room Currently stable no other medical conditions Continue yearly review Bladder cancer superficial low-grade initial diagnosis February 2019 Diagnosis February 2019 TURBT February 2019 low-grade noninvasive Does not tolerate cystoscopy in office Check cystoscopy performed in operating room Prior cystoscopy - 12/24 cystoscopy with fulguration, 06/25 cystoscopy looks normal, 03/26 cysto negative, 09/27 cysto NAD Will continue with surveillance every year PFS Medical History Bladder cancer Ankylosing spondylitis Smoker BPH (benign prostatic hyperplasia) Hx of bladder cancer Arthritis Back pain Hx of gastroesophageal reflux (GERD) Hx of hepatitis C PTSD (post-traumatic stress disorder) Depression Bipolar 1 disorder Positive PPD Bronchitis Elevated cholesterol HTN (hypertension) Surgical History Hx of cystoscopy Hx of cystoscopy Hx of hernia repair Hx of arthroscopy of left knee Hx of colonoscopy History of inguinal hernia repair Hx of hand surgery Hx of cystoscopy Are you a primary healthcare network pricing consultant to a significant other at home: No Do you presently have visiting nurse or other home services: No Alcohol intake: never Patient Tobacco Use Status: Current everyday Tobacco user Tobacco use type: Cigarette Cigarettes Per Day: 6 Years Smoked: 28 Advance Directives Date on File: 06/10/20 Current occupational status: disabled Current occupation: rt hand Assessment & Plan Assessment & Plan (1) Bladder cancer: Comment: Low-grade superficial Code(s): C67.9 - Malignant neoplasm of bladder, unspecified Qualifiers: Bladder location: unspecified site Qualified Code(s): C67.9 - Malignant neoplasm of bladder, unspecified Plan Risks, benefits and alternatives to therapy were discussed. These include but are not limited to infection, bleeding, damage to local organs and tissues, need for further interventions. Anesthetic risks regarding cardiac arrhythmia, blood clots, and potential mortality were discussed. The patient understands the typical recovery time and the outpatient nature of the procedure. After consideration of these risks the patient gives full informed consent and they wish to move ahead with the procedure. Check cystoscopy Patient Instructions: Imaging studies, laboratory and physical exam results were discussed and reviewed in detail. No major barriers to patient understanding were identified. An opportunity to ask questions regarding the treatment plan was provided. All questions were answered. The patient expressed understanding and agreement with the above treatment plan. The patient is aware they should contact our office by phone for worsening of their current condition or the appearance of new urologic symptoms. Compliance is encouraged with any medications and followup testing that is ordered. It is a privilege to participate in the urologic care of your patient. If you have any questions or concerns regarding treatment for the above conditions, or other urologic issues, please do not hesitate to contact me. The office telephone contact is [phone]. This note is constructed using voice recognition software. While every effort has been made to ensure accuracy soft crab shedder errors may have been included. Yours sincerely, Dr Samuel Cox MD, [facility] - Urology Providers of Expert, Compassionate Care for the Genitourinary System Coding Level of Care Code Est Pt Level 4 (25409) Diagnoses Malignant neoplasm of urinary bladder, unspecified site C67.9 Bladder location: unspecified site
== END 2023-07-26 14:33 | disposition home or self-care (01) ==
PROVIDERS: PCP Family Medicine; Visit Provider Urology
DX: C67.9 Malignant neoplasm of bladder, unspecified (principal)
CPT/HCPCS: 99213

== ENCOUNTER → 2023-07-26 14:00 | Outpatient (BNVA) | payer MEDICAID, SELFPAY | PROVIDERS: PCP Family Medicine; Visit Provider Urology | DX: C67.9 Malignant neoplasm of bladder, unspecified (principal) | CPT/HCPCS: 99212 ==

== ENCOUNTER 2023-09-19 05:57 | Day surgery (SDC) | payer MEDICAID, SELFPAY ==
[2023-09-14 15:15] VITALS: BMI 24.8
--- NOTE | 2023-09-16 10:16 | P.CONAN_ITS ---
Documented by User: Norma Harley NP 09/16/23 10:17 HPI - Anesthesia Eval Consult details Narrative: 63yo M for Cystoscopy s/p same 09/2022 with [facility] Active Problems Active Problems: All Active Problems (Updated 04/15/22 @ 10:52 by Sonali Null) Lateral epicondylitis, right elbow (Acute) Patellofemoral arthralgia of both knees (Acute) Patellofemoral arthritis (Acute) Bladder cancer (Acute) Ankylosing spondylitis (Acute) Past Medical History Medical History Bladder cancer Ankylosing spondylitis Smoker BPH (benign prostatic hyperplasia) Hx of bladder cancer Arthritis Back pain Hx of gastroesophageal reflux (GERD) Hx of hepatitis C PTSD (post-traumatic stress disorder) Depression Bipolar 1 disorder Positive PPD Bronchitis Elevated cholesterol HTN (hypertension) Family History Family history of problems with anesthesia: No Surgical History Surgical History Hx of cystoscopy Hx of cystoscopy Hx of hernia repair Hx of arthroscopy of left knee Hx of colonoscopy History of inguinal hernia repair Hx of hand surgery Hx of cystoscopy History of Problems with Anesthesia: No Social History Social History Are you a primary hearing healthcare practitioner to a significant other at home: No Do you presently have visiting nurse or other home services: No Alcohol intake: never Patient Tobacco Use Status: Never used Tobacco Tobacco use type: Cigarette Cigarettes Per Day: 6 Years Smoked: 28 Use of substances other than those prescribed or required for medical reasons: No Are you DNR?: No Advance Directives: No Advance Directives Information Provided: Yes Advance Directives Date on File: 06/10/20 Current occupational status: disabled Current occupation: rt hand Meds Allergies Allergy/AdvReac Type Severity Reaction Status Date / Time Iodinated Contrast Media Allergy Severe TACHYCARDIA, Verified 03/22/23 14:31 [IV DYE, IODINE CONTAINING DIFFICULTY CONTRAST ] BREATHING, CHEST PAIN Penicillins [PENICILLINS] Allergy Severe SHAKING,CHI Verified 03/22/23 14:31 LLS seafood Allergy Severe itching/hiv Verified 03/22/23 14:31 es/nausea-v omiting Home Medications Medication Instructions Recorded Confirmed Last Taken Type amitriptyline 10 mg tablet 10 mg PO BEDTIME 07/16/20 09/19/23 Unknown History cholecalciferol (vitamin D3) 25 25 mcg PO DAILY 07/16/20 09/19/23 Unknown History mcg (1,000 unit) capsule (Vitamin D3) cyclobenzaprine 10 mg tablet 10 mg PO TID PRN Muscle Spasm 07/16/20 09/19/23 Unknown History dicyclomine 10 mg capsule 10 mg PO BID 07/16/20 09/19/23 Unknown History lisinopril 5 mg tablet 5 mg PO DAILY 07/16/20 09/19/23 Unknown History loratadine 10 mg tablet (Claritin) 10 mg PO DAILY 07/16/20 09/19/23 Unknown History sertraline 100 mg tablet 100 mg PO DAILY 07/16/20 09/19/23 Unknown History tramadol 50 mg tablet 50 mg PO TID PRN Pain 07/16/20 09/19/23 Unknown History zolpidem 5 mg tablet 5 mg PO BEDTIME PRN Insomnia 07/16/20 09/19/23 Unknown History diclofenac sodium 1 % topical gel 2 g topical TID PRN pain 11/10/21 09/19/23 Unknown History gabapentin 600 mg tablet 600 mg PO TID 01/01/22 09/19/23 Unknown History bupropion HCl 100 mg tablet,12 hr 1 tab PO QAM 03/23/22 09/19/23 Unknown History sustained-release duloxetine 60 mg capsule,delayed 1 cap PO DAILY 03/23/22 09/19/23 Unknown History release atorvastatin 80 mg tablet 80 mg PO DAILY 09/07/22 09/19/23 Unknown History blood pressure test kit-large #1 ea 09/07/22 09/19/23 Unknown History celecoxib 200 mg capsule 200 mg PO DAILY 09/07/22 09/19/23 Unknown History prazosin 1 mg capsule 1 mg PO BEDTIME 09/07/22 09/19/23 Unknown History Exam Height,Weight and Vital Signs: Height 6 ft Weight 83.007 kg Assessment and Plan Assessment Anesthesia Assessment: Chart Reviewed Final Anesthetic Review Family History of Problems with Anesthesia: No History of Problems with Anesthesia: No Documented by User: Anselmo Montoya MD 09/19/23 07:31 [facility] Past Medical History Medical History Bladder cancer Ankylosing spondylitis Smoker BPH (benign prostatic hyperplasia) Hx of bladder cancer Arthritis Back pain Hx of gastroesophageal reflux (GERD) Hx of hepatitis C PTSD (post-traumatic stress disorder) Depression Bipolar 1 disorder Positive PPD Bronchitis Elevated cholesterol HTN (hypertension) Surgical History Surgical History Hx of cystoscopy Hx of cystoscopy Hx of hernia repair Hx of arthroscopy of left knee Hx of colonoscopy History of inguinal hernia repair Hx of hand surgery Hx of cystoscopy Social History Social History Are you a primary hearing healthcare practitioner to a significant other at home: No Do you presently have visiting nurse or other home services: No Alcohol intake: never Patient Tobacco Use Status: Never used Tobacco Tobacco use type: Cigarette Cigarettes Per Day: 6 Years Smoked: 28 Use of substances other than those prescribed or required for medical reasons: No Are you DNR?: No Advance Directives: No Advance Directives Information Provided: Yes Advance Directives Date on File: 06/10/20 Current occupational status: disabled Current occupation: rt hand Meds Allergies Allergy/AdvReac Type Severity Reaction Status Date / Time Iodinated Contrast Media Allergy Severe TACHYCARDIA, Verified 03/22/23 14:31 [IV DYE, IODINE CONTAINING DIFFICULTY CONTRAST ] BREATHING, CHEST PAIN Penicillins [PENICILLINS] Allergy Severe SHAKING,CHI Verified 03/22/23 14:31 LLS seafood Allergy Severe itching/hiv Verified 03/22/23 14:31 es/nausea-v omiting Home Medications Medication Instructions Recorded Confirmed Last Taken Type amitriptyline 10 mg tablet 10 mg PO BEDTIME 07/16/20 09/19/23 Unknown History cholecalciferol (vitamin D3) 25 25 mcg PO DAILY 07/16/20 09/19/23 Unknown History mcg (1,000 unit) capsule (Vitamin D3) cyclobenzaprine 10 mg tablet 10 mg PO TID PRN Muscle Spasm 07/16/20 09/19/23 Unknown History dicyclomine 10 mg capsule 10 mg PO BID 07/16/20 09/19/23 Unknown History lisinopril 5 mg tablet 5 mg PO DAILY 07/16/20 09/19/23 Unknown History loratadine 10 mg tablet (Claritin) 10 mg PO DAILY 07/16/20 09/19/23 Unknown History sertraline 100 mg tablet 100 mg PO DAILY 07/16/20 09/19/23 Unknown History tramadol 50 mg tablet 50 mg PO TID PRN Pain 07/16/20 09/19/23 Unknown History zolpidem 5 mg tablet 5 mg PO BEDTIME PRN Insomnia 07/16/20 09/19/23 Unknown History diclofenac sodium 1 % topical gel 2 g topical TID PRN pain 11/10/21 09/19/23 Unknown History gabapentin 600 mg tablet 600 mg PO TID 01/01/22 09/19/23 Unknown History bupropion HCl 100 mg tablet,12 hr 1 tab PO QAM 03/23/22 09/19/23 Unknown History sustained-release duloxetine 60 mg capsule,delayed 1 cap PO DAILY 03/23/22 09/19/23 Unknown History release atorvastatin 80 mg tablet 80 mg PO DAILY 09/07/22 09/19/23 Unknown History blood pressure test kit-large #1 ea 09/07/22 09/19/23 Unknown History celecoxib 200 mg capsule 200 mg PO DAILY 09/07/22 09/19/23 Unknown History prazosin 1 mg capsule 1 mg PO BEDTIME 09/07/22 09/19/23 Unknown History Exam Airway Mallampati Class: II TM Dist: >3cm Neck ROM: Full Loose/Missing/Broken Teeth: No Heart: ok Lungs: ok Assessment and Plan Assessment Anesthesia Assessment: Anesthesia Plan Discussed Final Anesthetic Review NPO: Yes ASA Class: II Final Preanesthetic Review: No Changes in Pt Med Stat, Meds/Allgs Chart Reviewed, Consent Obtained/Reviewed and Anes Risks/Benef Reviewed Patient Risk: Low Procedure Risk: Low Anesthetic Plan Anesthetic Plan: Agree w/ Assess. and Plan and TIVA Disposition: Standard PACU
[2023-09-19 06:20] VITALS: BMI 24.4
[2023-09-19 06:30] VITALS: BP 133/69; PULSE 57; RESP 16; TEMP 36.7; O2SAT 98
[2023-09-19] MEDS: Lactated Ringers 1,000 ML 100 ML IVCONT (06:38)
--- NOTE | 2023-09-19 07:45 | P.HPSUR_ITS ---
Pre-Procedural Eval Section A Date of Service: 09/19/23 The patient is an INPATIENT: No Changes since office visit: No Cold of Flu in the past 2 weeks, No New Medical Problems, No Changes in Medication and No Patient answered all questions The History & Physical has been completed within 30 days and I have reviewed it.: No Section B Chief Complaint: Malignant neoplasm of bladder, unspecified Details of Present Illness: prior superficial bladeer cancer Relevant Family History (Specify if Yes): No Relevant Social History: None Present Medications: see Short Stay Collaborative assessment Medical History: No relevant PMH History of Previous Operations: Relevant previous surgery/procedure and date(s) Allergies: Allergies Allergy/AdvReac Type Severity Reaction Status Date / Time Iodinated Contrast Media Allergy Severe TACHYCARDIA, Verified 03/22/23 14:31 [IV DYE, IODINE CONTAINING DIFFICULTY CONTRAST ] BREATHING, CHEST PAIN Penicillins [PENICILLINS] Allergy Severe SHAKING,CHI Verified 03/22/23 14:31 LLS seafood Allergy Severe itching/hiv Verified 03/22/23 14:31 es/nausea-v omiting Review of Systems Sugical H&P ROS: Negative: Constitution, Cardiovascular, Respiratory, Neurological, Psychiatric, Hem-Onc, Allergic/Immunologic, Gastrointestinal, Genitourinary, Musculoskeletal, Integumentary, Endocrine and Eyes/Ears/ Nose/Throat Exam Surgical H&P Exam: Normal: HEENT, Normal: Heart, Normal: Lungs, Normal: Extremities, Normal: Abdomen, Normal: Skin and Normal: Neurological Plan Diagnosis/Plan: Unchanged (cystoscopy) I have reviewed the history and physical and performed a pertinent physical examination on my patient. No changes have occurred unless specified. Time Spent With Patient Time: Total time managing care of this patient today ____ minutes.
[2023-09-19] MEDS: levoFLOXacin 500 MG TABLET PO (07:46)
[2023-09-19 08:12] VITALS: BP 109/62; PULSE 71; RESP 16; TEMP 36.3; O2SAT 97
[2023-09-19 08:28] VITALS: BP 131/65; PULSE 59; RESP 16; O2SAT 99
--- NOTE | 2023-10-28 16:47 | W.PM.OPN ---
Operative Note Operative Note Date of Service: 09/19/23 Narrative: PreOperative Diagnosis:? Bladder cancer Post Operative Diagnosis:? Bladder cancer Procedure:? Cystoscopy Surgeon: Dr Samuel Cox Anesthesia:? Sedation Indications for procedure: Longstanding bladder cancer.? On yearly surveillance. Procedure: After informed consent was verified the patient was brought to the operating room and placed in a supine position.? Anesthesia was administered per protocol. After he had been prepped and draped in sterile fashion flexible cystoscopy was performed.? No abnormality found in the anterior posterior urethra.? Bladder examined in its entirety.? Prior area scarring at back wall dome seen.? No lesions seen within bladder. He tolerated procedure well Repeat procedure in 12 months Pathology: None Drains: None none
== END 2023-09-19 10:12 | disposition home or self-care (01) ==
PROVIDERS: PCP Family Medicine; Visit Provider Urology
PROC: 0TJB8ZZ Inspection of Bladder, Via Natural or Artificial Opening Endoscopic (ICD-10-PCS; CPT 52000; principal; 2023-09-19 07:30)
DX: C67.9 Malignant neoplasm of bladder, unspecified (principal); N40.0 Benign prostatic hyperplasia without lower urinary tract symptoms; I10 Essential (primary) hypertension; E78.00 Pure hypercholesterolemia, unspecified; Z88.0 Allergy status to penicillin; Z91.041 Radiographic dye allergy status; F17.210 Nicotine dependence, cigarettes, uncomplicated
CPT/HCPCS: 52000; J2250; J2704; J3010

== ENCOUNTER → 2023-09-19 05:57 | Outpatient (BNV) | payer MEDICAID, SELFPAY | PROVIDERS: PCP Family Medicine; Visit Provider Urology | DX: C67.8 Malignant neoplasm of overlapping sites of bladder (principal) | CPT/HCPCS: 52000 ==

== ENCOUNTER 2023-11-17 12:01 | Outpatient (REF) | payer MEDICAID, SELFPAY ==
[2023-11-17 13:36] LABS: Hematocrit 46.7 % (42.0-52.0); Hemoglobin 15.6 g/dl (14.0-18.0); Mean Corpuscular HGB Conc 33.4 g/dl (31.0-36.0); Mean Corpuscular Hemoglobin 28.4 pg (27.0-33.0); Mean Corpuscular Volume 84.9 fL (80.0-98.0); Mean Platelet Volume 11.4 fL (9.4-12.4); Platelet Count 188 X10*3/uL (160-400); Red Cell Distribution Width 13.3 % (11.0-16.0); White Blood Count 7.5 X10*3/uL (4.8-10.8)
[2023-11-17 13:41] LABS: Estimated Average Glucose 100 mg/dL; Hemoglobin A1c % 5.1 % (<6.0)
[2023-11-17 13:57] LABS: Alanine Aminotransferase 14 U/L (0-40); Albumin Level 4.5 g/dL (3.5-5.0); Alkaline Phosphatase 66 U/L (39-117); Anion Gap 15 (12-20); Aspartate Amino Transferase 20 U/L (5-37); Bilirubin Direct 0.1 mg/dL (0.0-0.5); Bilirubin Total 0.4 mg/dL (0.0-1.0); Blood Urea Nitrogen 22 mg/dL (9-16); C Reactive Protein 0.42 mg/dL (< or = 0.50); Calcium 9.5 mg/dL (8.4-10.2); Carbon Dioxide 25 mmol/L (22-29); Chloride 108 mmol/L (96-108); Cholesterol 189 mg/dL (<200); Estimated Glomerular Filt Rate > 60; Glucose Random 96 mg/dL (60-115); HDL Cholesterol 28 mg/dL (>40); LDL Cholesterol Calculated 119 mg/dL (<100); Potassium 4.7 mmol/L (3.3-5.1); Sodium 143 mmol/L (135-145); Total Protein 7.4 g/dL (6.5-8.0); Triglycerides 211 mg/dL (<150)
[2023-11-17 14:06] LABS: Creatinine Urine 122.29 mg/dL
[2023-11-17 14:13] LABS: Free T4 (Free Thyroxine) 0.87 ng/dL (0.71-1.85); Thyroid Stimulating Hormone 1.55 uIU/mL (0.32-4.0); Vitamin D 25-OH Total 67.2 ng/mL (>30)
[2023-11-17 14:18] LABS: Microalbum/Creatinine Ratio Ur 635.3 ug/mg cr (<30)
[2023-11-17 14:20] LABS: Erythrocyte Sedimentation Rate 2 MM/HR (0-15)
== END 2023-11-17 12:02 | disposition home or self-care (01) ==
LOC: HO.HHCL 12:01
PROVIDERS: Visit Provider Family Medicine
DX: I10 Essential (primary) hypertension (principal); M45.9 Ankylosing spondylitis of unspecified sites in spine
CPT/HCPCS: 36415; 80048; 80061; 80076; 82043; 82306; 82570; 83036; 84439; 84443; 85027; 85652; 86140

== ENCOUNTER 2024-08-07 09:50 | Outpatient (REF) | payer MEDICAID, SELFPAY | END 2024-08-07 09:51 | disposition home or self-care (01) | LOC: HO.HOSX 09:50 | PROVIDERS: Visit Provider Orthopaedic Surgery | DX: Z13.89 Encounter for screening for other disorder (principal) ==

== ENCOUNTER 2024-08-21 14:15 | Outpatient (AMB) | payer MEDICAID, SELFPAY ==
--- NOTE | 2024-08-21 14:16 | A.OFFVIS_ITS ---
Intake Visit Reasons: 1yr follow up (discuss OR cysto) Intake Note: Patient is Present for 1y Follow Up Urology Medication: None Antibiotic Allergies: Penicillins Blood Thinners: None Registered Nurse Step Down Required: No Allergies Iodinated Contrast Media [IV DYE, IODINE CONTAINING CONTRAST ] Allergy (Severe, Verified 08/21/24 14:18) TACHYCARDIA, DIFFICULTY BREATHING, CHEST PAIN Penicillins [PENICILLINS] Allergy (Severe, Verified 08/21/24 14:18) SHAKING,CHILLS seafood Allergy (Severe, Verified 08/21/24 14:18) itching/hives/nausea-vomiting HPI Comments Details: Azra is [place]. He is a patient of . He is seen for the following urologic condition - bladder cancer Surveillance cystoscopy to schedule in operating room Currently stable no other medical conditions Continue yearly review Bladder cancer superficial low-grade initial diagnosis February 2019 Diagnosis February 2019 TURBT February 2019 low-grade noninvasive Does not tolerate cystoscopy in office Check cystoscopy performed in operating room Prior cystoscopy - 12/24 cystoscopy with fulguration, 06/25 cystoscopy looks normal, 03/26 cysto negative, 09/27 cysto NAD, 09/28 NAD Will continue with surveillance every year PFSH Medical History Bladder cancer Ankylosing spondylitis Smoker BPH (benign prostatic hyperplasia) Hx of bladder cancer Arthritis Back pain Hx of gastroesophageal reflux (GERD) Hx of hepatitis C PTSD (post-traumatic stress disorder) Depression Bipolar 1 disorder Positive PPD Bronchitis Elevated cholesterol HTN (hypertension) Surgical History Hx of cystoscopy Hx of cystoscopy Hx of hernia repair Hx of arthroscopy of left knee Hx of colonoscopy History of inguinal hernia repair Hx of hand surgery Hx of cystoscopy Social History Are you a primary lead caregiver to a significant other at home: No Do you presently have visiting nurse or other home services: No Alcohol intake: never Patient Tobacco Use Status: Never used Tobacco Tobacco use type: Cigarette Cigarettes Per Day: 6 Years Smoked: 28 Advance Directives Date on File: 06/10/20 Current occupational status: disabled Current occupation: rt hand Review of Systems Const Denies chills and Denies fever(s) Card Reports no additional complaints and Denies syncope Resp Denies cough GI Denies abdominal pain and Denies heartburn Reports as per HPI and Denies change in libido Neuro Denies syncope Psych Denies change in libido Endo Denies change in libido Physical Exam Const General: cooperative, healthy appearing, comfortable and no acute distress Orientation/consciousness: patient oriented x3 HEENT Face and sinus: Yes normal facial exam Mouth: moist mucous membranes Neck Neck: Yes normal visual inspection, Yes full ROM and Yes trachea midline Chest Chest palpation & inspection: normal inspection of the chest Resp Effort & Inspection: normal respiratory effort, able to speak in complete sentences and no respiratory distress GI Inspection: Yes normal to inspection Back/Spine/Pelvis Cervical Spine: normal cervical lordosis Thoracic/Lumbar Spine: thoracic and lumbar spine normal to inspection Skin General skin exam: no rashes or lesions noted Neuro General: patient oriented x3, gait normal, tone normal and moves all extremities Extrem General: Yes normal to inspection and Yes capillary refill normal Assessment & Plan Assessment & Plan (1) Bladder cancer: Comment: Low-grade superficial Code(s): C67.9 - Malignant neoplasm of bladder, unspecified Category: Medical Qualifiers: Bladder location: unspecified site Qualified Code(s): C67.9 - Malignant neoplasm of bladder, unspecified Plan Risks, benefits and alternatives to therapy were discussed. These include but are not limited to infection, bleeding, damage to local organs and tissues, need for further interventions. Anesthetic risks regarding cardiac arrhythmia, blood clots, and potential mortality were discussed. The patient understands the typical recovery time and the outpatient nature of the procedure. After consideration of these risks the patient gives full informed consent and they wish to move ahead with the procedure. Check cysto OR Patient Instructions: Imaging studies, laboratory and physical exam results were discussed and reviewed in detail. No major barriers to patient understanding were identified. An opportunity to ask questions regarding the treatment plan was provided. All questions were answered. The patient expressed understanding and agreement with the above treatment plan. The patient is aware they should contact our office by phone for worsening of their current condition or the appearance of new urologic symptoms. Compliance is encouraged with any medications and followup testing that is ordered. It is a privilege to participate in the urologic care of your patient. If you have any questions or concerns regarding treatment for the above conditions, or other urologic issues, please do not hesitate to contact me. The office telephone contact is [phone]. This note is constructed using voice recognition software. While every effort has been made to ensure accuracy [employer] errors may have been included. Yours sincerely, Dr Samuel Cox MD, [facility] - Urology Providers of Expert, Compassionate Care for the Genitourinary System Coding Level of Care Code Est Pt Level 4 (04663) Diagnoses Malignant neoplasm of urinary bladder, unspecified site C67.9 Bladder location: unspecified site
== END 2024-08-21 14:58 | disposition home or self-care (01) ==
PROVIDERS: PCP Family Medicine; Visit Provider Urology
DX: C67.9 Malignant neoplasm of bladder, unspecified (principal)
CPT/HCPCS: 99214

== ENCOUNTER → 2024-08-21 14:15 | Outpatient (BNVA) | payer MEDICAID, SELFPAY | PROVIDERS: PCP Family Medicine; Visit Provider Urology | DX: C67.9 Malignant neoplasm of bladder, unspecified (principal) | CPT/HCPCS: 99212 ==

== ENCOUNTER 2024-09-06 10:41 | Outpatient (REF) | payer MEDICAID, SELFPAY ==
--- NOTE | ~2024-09-06 | XR_ITS ---
EXAMINATION: XR RIGHT KNEE; XR LEFT KNEE CLINICAL INFORMATION: Pain in right knee M25.561. Pain in left knee M25.562. COMPARISON: XR Bilateral knee 04/15/2022 TECHNIQUE: 3 views of the right knee and 3 views of the left knee. FINDINGS: Left knee: There is mild reduction in the patellofemoral and medial compartment joint space. There is anterior superior patellar enthesophyte. No joint effusion seen. There are no loose bodies. No acute fracture or dislocation seen.] Right knee: There is moderate loss of medial and patellofemoral compartment joint space with periarticular spurring medial compartment. There is anterior superior patellar enthesophyte. No fracture, joint effusion or loose bodies seen. XR/XR knee LT 3V IMPRESSION: Bilateral degenerative changes medial and patellar 4 compartments with periocular spurring. No loose bodies or joint effusion seen. The soft tissues are normal. Electronically signed by: Kenan Myles MD 09/14/2024 11:58 AM EST
--- NOTE | ~2024-09-06 | XR_ITS ---
EXAMINATION: XR RIGHT KNEE; XR LEFT KNEE CLINICAL INFORMATION: Pain in right knee M25.561. Pain in left knee M25.562. COMPARISON: XR Bilateral knee 04/15/2022 TECHNIQUE: 3 views of the right knee and 3 views of the left knee. FINDINGS: Left knee: There is mild reduction in the patellofemoral and medial compartment joint space. There is anterior superior patellar enthesophyte. No joint effusion seen. There are no loose bodies. No acute fracture or dislocation seen.] Right knee: There is moderate loss of medial and patellofemoral compartment joint space with periarticular spurring medial compartment. There is anterior superior patellar enthesophyte. No fracture, joint effusion or loose bodies seen. XR/XR knee RT 3V IMPRESSION: Bilateral degenerative changes medial and patellar 4 compartments with periocular spurring. No loose bodies or joint effusion seen. The soft tissues are normal. Electronically signed by: Kenan Myles MD 09/14/2024 11:58 AM EST
== END 2024-09-06 10:42 | disposition home or self-care (01) ==
LOC: HO.HOSX 10:41
PROVIDERS: Visit Provider Orthopaedic Surgery
DX: M25.561 Pain in right knee (principal); M25.562 Pain in left knee; M17.10 Unilateral primary osteoarthritis, unspecified knee; M17.0 Bilateral primary osteoarthritis of knee
CPT/HCPCS: 73562; 99212

== ENCOUNTER 2024-09-06 13:35 | Outpatient (AMB) | payer MEDICAID, SELFPAY ==
--- NOTE | 2024-09-06 13:48 | A.OFFVIS_ITS ---
Vital Signs 09/06/24 14:01 Height 6 ft Weight 177 lb BMI 24.0 Intake Visit Reasons: OV- Chronic pain of both knees Intake Note: Azra is a 62 year old male who presents today for a follow up of bilateral knee pain. Patient reports intermittent pain that is located at the medial aspect of knees. His right knee causes him the most discomfort. He has difficulty with bending his knee. Denies numbness or tingling or any giving out. He uses a cane with ambulation. Finds relief with Tylenol and gabapentin. States he did not follow up with pain management due to other health problems. He received braces at his last visit and would like new ones due to the braces being worn out. Allergies Iodinated Contrast Media [IV DYE, IODINE CONTAINING CONTRAST ] Allergy (Severe, Verified 09/06/24 14:06) TACHYCARDIA, DIFFICULTY BREATHING, CHEST PAIN Penicillins [PENICILLINS] Allergy (Severe, Verified 09/06/24 14:06) SHAKING,CHILLS seafood Allergy (Severe, Verified 09/06/24 14:06) itching/hives/nausea-vomiting Medication List - Last Reconciled 09/06/24 by Napoleon Hoffman PA-C acetaminophen ER (Mapap Arthritis Pain) 650 mg PO Q8H PRN amitriptyline 10 mg PO BEDTIME atorvastatin 80 mg PO DAILY blood pressure test kit-large As directed bupropion HCl SR 1 tab PO QAM celecoxib 200 mg PO DAILY cholecalciferol (vitamin D3) (Vitamin D3) 25 mcg PO DAILY cyclobenzaprine 10 mg PO TID PRN diclofenac sodium 1% 2 grams topical TID PRN dicyclomine 10 mg PO BID duloxetine 1 cap PO DAILY gabapentin 600 mg PO TID lisinopril 5 mg PO DAILY loratadine (Claritin) 10 mg PO DAILY prazosin 1 mg PO BEDTIME sertraline 100 mg PO DAILY tramadol 50 mg PO TID PRN zolpidem 5 mg PO BEDTIME PRN HPI HPI OV- Chronic pain of both knees: Details: 64-year-old gentleman presents to the office today for bilateral knee pain. No new injury. At his last appointment in April of 2022 he was referred to pain management and supplied with a knee brace. He states he was unable to attend pain management as he was dealing with a neck injury. He did have significant support with the knee braces but over time they have stretched out. Does have significant discomfort with going downstairs. PFSH Medical History Bladder cancer Ankylosing spondylitis Smoker BPH (benign prostatic hyperplasia) Hx of bladder cancer Arthritis Back pain Hx of gastroesophageal reflux (GERD) Hx of hepatitis C PTSD (post-traumatic stress disorder) Depression Bipolar 1 disorder Positive PPD Bronchitis Elevated cholesterol HTN (hypertension) Surgical History Hx of cystoscopy Hx of cystoscopy Hx of hernia repair Hx of arthroscopy of left knee Hx of colonoscopy History of inguinal hernia repair Hx of hand surgery Hx of cystoscopy Social History Are you a primary long term care social worker to a significant other at home: No Do you presently have visiting nurse or other home services: No Alcohol intake: never Patient Tobacco Use Status: Never used Tobacco Tobacco use type: Cigarette Cigarettes Per Day: 6 Years Smoked: 28 Advance Directives Date on File: 06/10/20 Current occupational status: disabled Current occupation: rt hand Review of Systems Const All systems reviewed & are unremarkable except as noted in HPI and below Physical Exam Vital Signs: BMI result Body Mass Index 24.0 Const General: cooperative and no acute distress Orientation/consciousness: patient oriented x3 Resp Effort & Inspection: normal respiratory effort and able to speak in complete sentences Cardio Peripheral pulses: Peripheral pulses 2+ throughout Neuro General: patient oriented x3 Extrem Other: Bilateral knee skin intact, no erythema or joint effusion. Medial retropatellar tenderness, right greater than left. Pain with patellar grind. ROM full with crepitus. Negative steinmans. No ligamentous laxity. NVI. Results Reviewed Results Reviewed: X-rays of both knees obtained in the office today are negative for acute abnormalities. Mild to moderate joint space narrowing with osteophyte formation. Assessment & Plan Assessment & Plan (1) Patellofemoral arthritis: Comment: Bilateral knees Code(s): M17.10 - Unilateral primary osteoarthritis, unspecified knee Category: Medical (2) Osteoarthritis of knees, bilateral: Code(s): M17.0 - Bilateral primary osteoarthritis of knee Category: Medical Plan We discussed options today which include conservative management with physical therapy and steroid injections. Not interested in steroid injections at this time. I did put in a referral for physical therapy which he will take to a place near his home. He was given bilateral genumed knee braces today. If symptoms persist or worsen over the next several weeks he can contact our office to discuss options otherwise follow-up as needed. Orders: Orders XR knee RT 3V Today Heber Martinez MD M25.561 - Pain in right knee XR knee LT 3V Today Heber Martinez MD M25.562 - Pain in left knee PT Evaluation and Treatment Today Ta-Vika Hoffman PA-C M17.0 - Bilateral primary osteoarthritis of knee, M17.10 - Unilateral primary osteoarthritis, unspecified knee Coding Level of Care Code Est Pt Level 3 (18140) Complex EM visit Add On G2211 Diagnoses Patellofemoral arthritis M17.10 Osteoarthritis of knees, bilateral M17.0
[2024-09-06 14:01] VITALS: BMI 24.0
== END 2024-09-06 15:04 | disposition home or self-care (01) ==
PROVIDERS: PCP Family Medicine; Visit Provider Physician Assistant
DX: M17.10 Unilateral primary osteoarthritis, unspecified knee (principal); M17.0 Bilateral primary osteoarthritis of knee
CPT/HCPCS: 99213

== ENCOUNTER → 2024-09-06 13:46 | Outpatient (BNV) | payer MEDICAID, SELFPAY | PROVIDERS: Visit Provider Radiology Diagnostic Radiology | DX: M25.762 Osteophyte, left knee (principal); M22.2X2 Patellofemoral disorders, left knee; M22.2X1 Patellofemoral disorders, right knee; M25.761 Osteophyte, right knee | CPT/HCPCS: 73562 ==

== ENCOUNTER 2024-10-29 06:42 | Day surgery (SDC) | payer MEDICAID, SELFPAY ==
[2024-10-29 07:05] VITALS: BMI 23.4
[2024-10-29 07:18] VITALS: BP 128/68; PULSE 63; RESP 16; TEMP 36.4; O2SAT 98
[2024-10-29] MEDS: Lactated Ringers 1,000 ML 50 ML IVCONT (07:25)
--- NOTE | 2024-10-29 07:39 | MHC.SHP ---
Pre-Procedural Eval Section A - 24 Hr Update-Section A only Date of Service: 10/29/24 The patient is an INPATIENT: No Changes since office visit: No Cold of Flu in the past 2 weeks, No New Medical Problems, No Changes in Medication and No Patient answered all questions The patient has been examined within 24 hours of the surgical procedure. The History & Physical has been completed within 30 days and I have reviewed it.: Yes Section B - Complete if H&P > 30 days Chief Complaint: Malignant neoplasm of bladder, unspecified Details of Present Illness: check cystoscopy Allergies: Allergies Allergy/AdvReac Type Severity Reaction Status Date / Time Iodinated Contrast Media Allergy Severe TACHYCARDIA, Verified 09/06/24 14:06 [IV DYE, IODINE CONTAINING DIFFICULTY CONTRAST ] BREATHING, CHEST PAIN Penicillins [PENICILLINS] Allergy Severe SHAKING,CHI Verified 09/06/24 14:06 LLS seafood Allergy Severe itching/hiv Verified 09/06/24 14:06 es/nausea-v omiting Plan I have reviewed the history and physical and performed a pertinent physical examination on my patient. No changes have occurred unless specified. Time Spent With Patient Time: Total time managing care of this patient today ____ minutes.
[2024-10-29] MEDS: levoFLOXacin 500 MG TABLET PO (07:51)
--- NOTE | 2024-10-29 08:27 | HO.ANESPROP2 ---
HPI - Anesthesia Eval Consult details Narrative: for cystoscopy PMFSH Active Problems Active Problems: All Active Problems Osteoarthritis of knees, bilateral (Acute) Right knee pain (Acute) Left knee pain (Acute) Lateral epicondylitis, right elbow (Acute) Patellofemoral arthralgia of both knees (Acute) Patellofemoral arthritis (Acute) Bladder cancer (Acute) Ankylosing spondylitis (Acute) Past Medical History Medical History Bladder cancer Ankylosing spondylitis Smoker BPH (benign prostatic hyperplasia) Hx of bladder cancer Arthritis Back pain Hx of gastroesophageal reflux (GERD) Hx of hepatitis C PTSD (post-traumatic stress disorder) Depression Bipolar 1 disorder Positive PPD Bronchitis Elevated cholesterol HTN (hypertension) Family History Family history of problems with anesthesia: No Surgical History Surgical History Hx of cystoscopy Hx of cystoscopy Hx of hernia repair Hx of arthroscopy of left knee Hx of colonoscopy History of inguinal hernia repair Hx of hand surgery Hx of cystoscopy History of Problems with Anesthesia: No Social History Social History Are you a primary career developer to a significant other at home: No Do you presently have visiting nurse or other home services: No Alcohol intake: never Patient Tobacco Use Status: Current everyday Tobacco user Tobacco use type: Cigarette Cigarettes Per Day: 6 Years Smoked: 28 Use of substances other than those prescribed or required for medical reasons: No Are you DNR?: No Advance Directives: No Advance Directives Information Provided: Yes Advance Directives Date on File: 06/10/20 Recently lost weight without trying: No Poor oral hygiene: No Current occupational status: disabled Current occupation: rt hand Meds Allergies Allergy/AdvReac Type Severity Reaction Status Date / Time Iodinated Contrast Media Allergy Severe TACHYCARDIA, Verified 09/06/24 14:06 [IV DYE, IODINE CONTAINING DIFFICULTY CONTRAST ] BREATHING, CHEST PAIN Penicillins [PENICILLINS] Allergy Severe SHAKING,CHI Verified 09/06/24 14:06 LLS seafood Allergy Severe itching/hiv Verified 09/06/24 14:06 es/nausea-v omiting Active Medications: Current Medications Lactated Ringer's (Lr) 1,000 mls @ 50 mls/hr IVCONT .Q20H LIZANDRO Last Admin: 10/29/24 07:25 Dose: 50 mls/hr Home Medications ?Medication ?Instructions ?Recorded ?Confirmed ?Last Taken ?Type amitriptyline 10 mg tablet 10 mg PO BEDTIME 07/16/20 09/06/24 Unknown History cholecalciferol (vitamin D3) 25 25 mcg PO DAILY 07/16/20 09/06/24 Unknown History mcg (1,000 unit) capsule (Vitamin D3) cyclobenzaprine 10 mg tablet 10 mg PO TID PRN Muscle Spasm 07/16/20 09/06/24 Unknown History dicyclomine 10 mg capsule 10 mg PO BID 07/16/20 09/06/24 Unknown History lisinopril 5 mg tablet 5 mg PO DAILY 07/16/20 09/06/24 Unknown History loratadine 10 mg tablet (Claritin) 10 mg PO DAILY 07/16/20 09/06/24 Unknown History sertraline 100 mg tablet 100 mg PO DAILY 07/16/20 09/06/24 Unknown History tramadol 50 mg tablet 50 mg PO TID PRN Pain 07/16/20 09/06/24 Unknown History zolpidem 5 mg tablet 5 mg PO BEDTIME PRN Insomnia 07/16/20 09/06/24 Unknown History diclofenac sodium 1 % topical gel 2 g topical TID PRN pain 11/10/21 09/06/24 Unknown History gabapentin 600 mg tablet 600 mg PO TID 01/01/22 09/06/24 Unknown History bupropion HCl 100 mg tablet,12 hr 1 tab PO QAM 03/23/22 09/06/24 Unknown History sustained-release duloxetine 60 mg capsule,delayed 1 cap PO DAILY 03/23/22 09/06/24 Unknown History release atorvastatin 80 mg tablet 80 mg PO DAILY 09/07/22 09/06/24 Unknown History blood pressure test kit-large #1 ea 09/07/22 09/06/24 Unknown History celecoxib 200 mg capsule 200 mg PO DAILY 09/07/22 09/06/24 Unknown History prazosin 1 mg capsule 1 mg PO BEDTIME 09/07/22 09/06/24 Unknown History Exam Height,Weight and Vital Signs: Height 6 ft Weight 78.4 kg Last Vital Signs Temp 97.6 F 10/29/24 07:18 Pulse 63 10/29/24 07:18 Resp 16 10/29/24 07:18 BP 128/68 10/29/24 07:18 Pulse Ox 98 10/29/24 07:18 O2 Del Method Room Air 10/29/24 07:18 Airway Mallampati Class: II TM Dist: >3cm Neck ROM: Full Loose/Missing/Broken Teeth: No Heart: ok Lungs: ok Assessment and Plan Assessment Anesthesia Assessment: Anesthesia Plan Discussed and Chart Reviewed Final Anesthetic Review Family History of Problems with Anesthesia: No History of Problems with Anesthesia: No NPO: Yes ASA Class: III Final Preanesthetic Review: No Changes in Pt Med Stat, Meds/Allgs Chart Reviewed, Consent Obtained/Reviewed and Anes Risks/Benef Reviewed Patient Risk: Intermediate Procedure Risk: Low Anesthetic Plan Anesthetic Plan: MAC: and Agree w/ Assess. and Plan Disposition: Standard PACU
--- NOTE | 2024-10-29 08:50 | W.PM.OPN ---
Operative Note Operative Note Date of Service: 10/29/24 Narrative: PreOperative Diagnosis:? Bladder cancer Post Operative Diagnosis:? Bladder cancer Procedure:? Cystoscopy Surgeon: Dr Samuel Cox Anesthesia:? Sedation Indications for procedure: Longstanding bladder cancer.? On yearly surveillance. Procedure: After informed consent was verified the patient was brought to the operating room and placed in a supine position.? Anesthesia was administered per protocol. After he had been prepped and draped in sterile fashion flexible cystoscopy was performed.? No abnormality found in the anterior posterior urethra.? Bladder examined in its entirety.? Prior area scarring at back wall dome seen.? No lesions seen within bladder. He tolerated procedure well Repeat procedure in 12 months Pathology: None Drains: None none
[2024-10-29 08:57] VITALS: BP 106/53; PULSE 63; RESP 18; TEMP 37.1; O2SAT 97
[2024-10-29 09:00] VITALS: BP 104/54; PULSE 63; RESP 16; O2SAT 96
[2024-10-29 09:05] VITALS: BP 102/55; PULSE 61; RESP 16; O2SAT 96
[2024-10-29 09:10] VITALS: BP 104/65; PULSE 64; RESP 16; O2SAT 97
[2024-10-29 09:23] VITALS: BP 116/69; PULSE 64; RESP 16; TEMP 36.9; O2SAT 97
== END 2024-10-29 10:20 | disposition home or self-care (01) ==
PROVIDERS: PCP Family Medicine; Visit Provider Urology
PROC: 0TJB8ZZ Inspection of Bladder, Via Natural or Artificial Opening Endoscopic (ICD-10-PCS; CPT 52000; principal; 2024-10-29 08:40)
DX: C67.9 Malignant neoplasm of bladder, unspecified (principal); N40.0 Benign prostatic hyperplasia without lower urinary tract symptoms; I10 Essential (primary) hypertension; E78.00 Pure hypercholesterolemia, unspecified; Z88.0 Allergy status to penicillin; Z91.041 Radiographic dye allergy status; F17.210 Nicotine dependence, cigarettes, uncomplicated
CPT/HCPCS: 52000; J2003; J2704; J3010

== ENCOUNTER → 2024-10-29 06:42 | Outpatient (BNV) | payer MEDICAID, SELFPAY | PROVIDERS: PCP Family Medicine; Visit Provider Urology | DX: C67.9 Malignant neoplasm of bladder, unspecified (principal) | CPT/HCPCS: 52000 ==

== ENCOUNTER 2025-06-06 08:36 | Outpatient (REF) | payer MEDICAID, SELFPAY ==
--- OUTSIDE RECORDS SUMMARY | 2025-06-05 15:15 | XMS_ITS | Encounter Summary ---
Author Organization [employer] Address [address] [place] [address] [address] [place] [address] Care Team Providers Care Bag Bleacher Name Role Phone Jhoana Katerine Primary Care Provider + [phone] Reason for Referral * Hospital - Outpatient (Routine) - Authorized Specialty Diagnoses / Procedures Referred By Contac t Referred To Contact Diagnoses Hypersomnia Procedures Home sleep test Lina Paez MD [address] [place] [address] Phone: tel: fax: [address] Phone: tel: fax: Referral ID Status Reason Start Date Expiration Date V isits Requested Visits Authorized [id number] Authorized 06/05/2025 06/05/2026 1 1 Encounter Details Date Type Department Care Team (Late st Contact Info) Description 06/05/2025 3:15 PM EDT Telemedicine [facility] [address] [place] [address] [phone] Lina Paez MD [address] [place], [place] [phone] Chronic fatigue; Hypersomnia Social History Tobacco Use Types Packs/Day Years Used Date Smoking Tobacco: Every Day Cigarettes Smokeless Tobacco: Never Alcohol Use Standard Drinks/Week Comments Never 0 (1 standard drink = 0.6 oz pur e alcohol) Alcohol Answer Date Recorded Frequency of Alcohol Consumption Not on file 06/01/2023 Average Number of Drinks Not on file 023 Frequency of Binge Drinking Not on file 05/07 Score 0 06/01/2023 Depression Answer Date Recorded Patient Health Questionnaire-9 Score 9 08/21/2024 Patient Health Questionnaire-9 Score 9 08/21/2024 Last PHQ-9: Questionnaire Data Not on file 1 10/22/2023 Housing Stability Answer Date Recorded What is your housing situation today? I have julio scott 04/23/[address] you li ve. Do you have problems with any of the following? Pests such as bugs, ants, or mice;Oven or stove not working 04/23/2025 Food Insecurity Answer Date Recorded Within the past 12 months, y ou worried that your food would run out before you got money to buy more: Never True 04/23/2025 Within the past 12 months,th e food you bought just didn't last and you didn't have enough money to get more: Never True Transportation Answer Date Recorded In the past 12 months, has l ack of transportation kept you from medical appts, meetings, work or from getting things needed for daily living? No 04/23/2025 Utilities Answer Date Recorded In the past 12 months, has t he electric, gas, oil or water company threatened to shut off services in your home? No 04/23/2025 Depression Answer Date Recorded Patient Health Questionnaire-2 Score 5 08/21/2024 Internet Access Answer Date Recorded Internet Access Q1 Yes 04/23/2025 Internet Access Q2 Not on file 04/23/2025 Sex and Gender Information Value Date Recorded Sex Assigned at Male 07/05/2022 10:21 AM EDT Legal Sex Male 10:21 AM EDT Gender Identity Choose not to disclose 10:21 AM EDT Sexual Orientation Straight 07/05/2022 10 :21 AM EDT documented as of this encounter Progress Notes * Lina Mitchell MD - 06/05/2025 3:15 PM EDT SUBJECTIVE: Azra Obregon is a 65 y.o. year old adult who presents for acute visit . Acute Concerns: Patient tells me that he feels extremely tired and fatigued this is happening for quite some time now(problem is chronic), he reports he takes his medication for this pression is good prescribed and follows all instructions regarding this and further questioning he does not know if he snores or have apneic episodes but he admits he does feel sleepy during the day and takes naps during the day. 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 Negative for activity change, appetite change, chills, diaphoresis, fever and unexpected weight change. HENT: Negative. Respiratory: Negative. Cardiovascular: Negative. Follow Up: No follow-ups on file. Medications Ordered Prior to Encounter[3] Problem List Items Addressed This Visit Fatigue PCP already order a battery of labs, I advised to do them as soon as he can and I added today testosterone level as per here with request, he will be contacted with results Today I will also order sleep study Relevant Orders Testosterone, Total, males (Adult), IA Hypersomnia Sleep study ordered ordered today Follow-up with PCP Relevant Orders Home sleep test [1] Patient Active Problem List Diagnosis Chronic allergic rhinitis Chronic low back pain Chronic neck pain Essential hypertension Posttraumatic stress disorder Proteinuria Major depression, recurrent, chronic (CMS/HCC) 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) Vitamin D deficiency Hyperlipidemia Ankylosing spondylitis (HCC) Chronic knee pain Stage 2 chronic kidney disease Tobacco dependence Chronic left shoulder pain History of Helicobacter pylori infection Fatigue Hypersomnia [2] Family History Problem Relation Name Age of Onset Rheum arthritis Mother Asthma Mother Coronary artery disease Mother Hypertension Father Alzheimer's disease Father Coronary artery disease Father Asthma Sister Diabetes Sister Cancer Father's Sister [3] Current Outpatient Medications on File Prior to Visit Medication Sig Dispense Refill acetaminophen (Mapap Arthritis Pain) 650 MG ER tablet TAKE 1 TABLET BY MOUTH EVERY 8 HOURS NEEDED FOR PAIN OR FEVER 90 tablet 3 atorvastatin (Lipitor) 80 MG tablet Take 1 tablet (80 mg) by mouth at bedtime. 90 tablet 3 bismuth subsalicylate (Pepto Bismol) 262 MG chewable tablet Chew 1 tablet (262 mg) if needed each day for indigestion, diarrhea or heartburn. 30 tablet 3 Blood Pressure kit 1 each 1 (one) time per week. 1 kit 0 buPROPion SR (Wellbutrin SR) 100 MG 12 hr tablet TAKE 1 TABLET(100 MG) BY MOUTH DAILY 30 tablet 0 cholecalciferol VITAMIN D (Vitamin D-3) 50 MCG (2000 UT) capsule Take 1 capsule (50 mcg) by mouth in the morning. 90 capsule 3 cyclobenzaprine (Flexeril) 10 MG tablet TAKE 1 TABLET BY MOUTH EVERY MORNING, AT NOON, AND EVERY NIGHT AT BEDTIME NEEDED FOR MUSCLE SPAMS 60 tablet 3 Diclofenac Sodium 1 % gel Apply 2 g topically if needed in the morning, at noon, in the evening, and at bedtime (pain). As needed for pain 350 g 3 DULoxetine (Cymbalta) [address] capsule Take 1 capsule by mouth every day 30 capsule 3 famotidine (Pepcid) 20 MG tablet Take 1 tablet by mouth. Every day Farxiga 10 MG Take 10 mg by mouth in the morning. gabapentin (Neurontin) 600 MG tablet TAKE 1 TABLET(600 MG) BY MOUTH THREE TIMES DAILY 90 tablet 3 lidocaine (Lidoderm) 5 % patch APPLY 2 PATCHES TOPICALLY IF NEEDED EACH DAY FOR MILD PAIN;REMOVE AND DISCARDWITHIN 12 HOURS OR DIRECTED BY MD 180 patch 3 lisinopril 5 MG tablet take 2 tablet by oral route every day loratadine (Claritin) 10 MG tablet Take 1 tablet (10 mg) by mouth Once per day. daily 90 tablet 3 prazosin (Minipress) 1 MG capsule TAKE 1 CAPSULE BY MOUTH AT BEDTIME 30 capsule 0 sertraline (Zoloft) 100 MG tablet TAKE 2 TABLETS BY MOUTH EVERY DAY 60 tablet 1 simethicone (Mylicon) 125 MG chewable tablet Chew 1 tablet (125 mg) every 6 (six) hours if needed for flatulence. 4 times every day 60 tablet 3 traMADol (Ultram) 50 MG tablet TAKE 1 TABLET(50 MG) BY MOUTH EVERY 6 HOURS NEEDED FOR SEVERE PAIN 84 tablet 0 triamcinolone (Nasacort) 55 MCG/ACT nasal inhaler USE 2 SPRAYS IN EACH NOSTRIL DAILY 50.7 mL 1 zolpidem (Ambien) 5 MG tablet TAKE 1 TABLET BY MOUTH AT BEDTIME NEEDED FOR SLEEP 30 tablet 2 No current facility-administered medications on file prior to visit. documented in this encounter Miscellaneous Notes * Assessment & Plan Note - Lina Mitchell MD - 06/05/2025 3:39 PM EDT Associated Problem(s): Hypersomnia Sleep study ordered ordered today Follow-up with PCP * Assessment & Plan Note - Lina Mitchell MD - 06/05/2025 3:39 PM EDT Associated Problem(s): Fatigue PCP already order a battery of labs, I advised to do them as soon as he can and I added today testosterone level as per here with request, he will be contacted with results Today I will also order sleep study documented in this encounter Plan of Treatment Scheduled Orders Name Type Priority Associated Diagnoses Orde r Schedule Testosterone, Total, males (Adult), IA Lab Routine Chronic fatigue Expected: 06/05/2025, Expires: 06/05/2026 Home sleep test Sleep Center Routine Hypersomnia Expected: 06/05/2025 (Approximate), Expires: 06/05/2026 documented as of this encounter Visit Diagnoses Diagnosis Chronic fatigue Other malaise and fatigue Hypersomnia Hypersomnia, unspecified documented in this encounter Additional Health Concerns Assessment Noted Time PHQ-9 Depression Total Score: 9 08/21/20 24 11:23 AM EST documented as of this encounter Care Teams Bag Bleacher Relationship Specialty Start Date End Date Katerine Ely DO [address] [place] [phone] PCP - General Family Medicine 06/07/11 documented as of this encounter
--- OUTSIDE RECORDS SUMMARY | 2025-06-06 08:58 | XMS_ITS | Clinical Summary ---
Author Organization [facility]. Address [address] [address] Phone Care Team Providers Care Wolf Hunter Name Role Phone Katerine Ely DO Primary Care Provider Unava ilable Allergies Active Allergy Reactions Criticality Noted Date Comments Iodinated Contrast Media High 04/13/2022 Other reaction(s): Chest pain, Difficulty breathing Penicillin V Other (see comments) 05/07/2021 Medications zolpidem (AMBIEN) 5 MG tablet Take 5 mg by mouth at night if needed Active dicyclomine (BENTYL) 10 MG capsule Take 10 mg by mouth 1 (one) time each day Active cyclobenzaprine (FLEXERIL) 10 MG tablet Take 10 mg by mouth 3 (three) times a day Active tamsulosin (FLOMAX) 0.4 MG 24 hr capsule Take 0.4 mg by mouth 1 (one) time each day Active gabapentin (NEURONTIN) 300 MG capsule Take 300 mg by mouth 1 (one) time each day Active hydrOXYzine (VISTARIL) 50 MG capsule Take 50 mg by mouth 4 (four) times a day Active cholecalciferol (VITAMIN D-3) 25 MCG (1000 UT) capsule Take 1,000 Units by mouth 1 (one) time each day Active buPROPion SR (WELLBUTRIN SR) 150 MG 12 hr tablet Take 150 mg by mouth 1 (one) time each day Active sertraline (ZOLOFT) 100 MG tablet Take 100 mg by mouth 1 (one) time each day Active lisinopril 5 MG tabletIndication s:Hypertensive renal disease Take 2 tablets (10 mg total) by mouth 1 (one) time each day 180 tablet 3 Active Dapagliflozin Propanediol (Farxiga) 10 MG tablet Take 10 mg by mouth every morning 90 tablet 5 08/06/20 25 Active Farxiga 10 MG tablet TAKE 1 TABLET BY MOUTH 1 TIME EACH DAY IN THE MORNING 30 tablet 4 05/08/20 25 Discontinu ed(Reorder (does not appear on AVS)) Active Problems Problem Noted Date Diagnosed Date Pain of knee region 08/20/2022 Hyperlipidemia 08/20/2022 Ankylosing spondylitis 08/20/2022 Chronic kidney disease stage 2 05/07/2021 Hypertensive renal disease 05/07/2021 Proteinuria 05/07/2021 Post-traumatic stress disorder 02/03/2016 Essential hypertension 02/03/2016 Chronic low back pain 02/03/2016 Allergic rhinitis 02/03/2016 Vitamin D deficiency 02/03/2016 Transitional cell carcinoma of urinary bladder 0 02/03/2016 Recurrent major depression 02/03/2016 Encounters Date Type Department Care Team Description 05/08/2025 1:15 PM EDT Office Visit [facility] [address] [address] Juan Bridges MD Persistent proteinuria (Primary Dx) 04/08/2025 Orders Only [facility] [address] [address] Juan Bridges MD Persistent proteinuria; Essential hypertension from Last 3 Months Immunizations Immunization Administration Dates Next Due Influenza Split 06/29/2013,06/07/2012 Influenza, Quadrivalent, Pre servative Free 06/01/2023,08/20/2022,07/16/2021,08/08,06/25/2019,08/24/2016,06/16/2015 Influenza, Quadrivalent, Wit h Preservative 05/29/2018,09/27/2017 Influenza, Unspecified 07/16/2021,09/20/2014 MMR 11/05/2009 Pneumococcal Polysaccharide 04/30/2013 Td 11/05/2009 Tdap 06/29/2013 Family History Medical History Relation Comments Diabetes Sibling Relation Status Comments Father Mother Sibling Social History Tobacco Use Types Packs/Day Years Used Date Smoking Tobacco: Every Day Cigarettes Smokeless Tobacco: Never Alcohol Use Standard Drinks/Week Comments No 0 (1 standard drink = 0.6 oz pur e alcohol) Sex and Gender Information Value Date Recorded Sex Assigned at Not on file Legal Sex Male 4:43 PM EST Gender Identity Not on file Sexual Orientation Not on file Last Filed Vital Signs Vital Sign Reading Time Taken Comments Blood Pressure 118/68 05/08/2025 1:14 PM EDT Pulse 78 05/08/2025 1:14 PM EDT Temperature - - Respiratory Rate - - Oxygen Saturation 97% 05/08/2025 1:14 PM EDT Inhaled Oxygen Concentration - - Weight 78.2 kg (172 lb 6.4 oz) 05/08/2025 1:14 P M EDT Height 175.3 cm (5' 9 ) 04/27/2019 12:00 PM EDT Body Mass Index 25.46 04/27/2019 12:00 PM EDT Plan of Treatment Upcoming Encounters Date Type Department Care Team (Late st Contact Info) Description 11/12/2025 1:15 PM EDT Office Visit [facility] [address] [address] Juan Bridges MD [address] [address] Health Maintenance Due Date Last Done Comments Colorectal Cancer Screening: Annual FOBT 01/28/2009 Colorectal Cancer Screening: Colonoscopy 01/28/2009 Colorectal Cancer Screening: Sigmoidoscopy 01/28/2009 Pneumococcal Vaccine: 50+ Years (2 of 2 - PCV) 04/30/2014 04/30/2013 Influenza Vaccine (#1) 2025 3, 08/20/2022, 07/16/2021, Additional history exists Pneumococcal Vaccine: Peds (0 to 5 Years) and At-Risk Patients (6 to 49 Years) Discontinued 04/30/2013 Hepatitis B Vaccine Aged Out No longe r eligible based on patient's age to complete this topic Procedures Procedure Name Priority Date/Time Associated Diagnosis Comments PROTEIN / CREATININE RATIO, URINE Routine 04/15/2025 8:44 AM EDT Persistent proteinuria Essential hypertension URINE ALBUMIN / CREATININE RATIO Routine 04/15/2025 8:44 AM EDT Persistent proteinuria Essential hypertension URINALYSIS WITH MICROSCOPIC Routine 04/15/2025 8:44 AM EDT Persistent proteinuria Essential hypertension RENAL FUNCTION PANEL Routine 04/15/2025 8:44 AM EDT Persistent proteinuria Essential hypertension MICROSCOPIC EXAMINATION - DO NOT USE Routine 04/15/2025 8:44 AM EDT from Last 3 Months Results * (ABNORMAL) Microscopic Examination (04/15/2025 8:44 AM EDT) WBC, Urine None seen 0 - 5 /hpf [facility] RBC, Urine 3-10(A) 0 - 2 /hpf [facility] Squamous Epithelial, Urine None seen 0 - 10 /hpf [facility] Casts None seen None seen /lpf [facility] Bacteria, Urine None seen None seen/Few [facility] 04/15/2025 8:44 AM EDT 04/15/2025 us Juan Bridges MD LAB MICROBIOLOGY - GENERAL OR DERABLES Final Result [facility] [address] [place] [address] * (ABNORMAL) Protein, Total, Random Urine w/Creatinine (Protein/Creat Ratio) (04/15/2025 8:44 AM EDT) Creatinine, Ur 72.6 Not Estab. mg/dL [facility] Protein, Ur 114.4 Not Estab. mg/dL [facility] Urine Protein/Creati nine Ratio 1,576(H) 0 - 200 mg/g creat [facility] Urine specimen (specimen) Urine specimen obtained by clean catch procedure / Unknown 04/15/2025 8:44 AM EDT 04/15/2025 Juan Bridges MD LAB URINE ORDERABLES Final Re sult Performing Organization Address [facility] Co de Phone Number [facility] [address] [place] [address] * (ABNORMAL) Urine Albumin / Creatinine Ratio (04/15/2025 8:44 AM EDT) Albumin, Urine 781.9 Not Estab. ug/mL [facility] Comment: Results confirmed on dilution. Albumin/Creatin ine Ratio 1,077(H) 0 - 29 mg/g creat [facility] Comment: Normal: 0 - 29 Moderately increased: 30 - 300 Severely increased: >300 Urine specimen (specimen) Urine specimen obtained by clean catch procedure / Unknown 04/15/2025 8:44 AM EDT 04/15/2025 Juan Bridges MD LAB URINE ORDERABLES Final Re sult Performing Organization Address [facility] Co de Phone Number [facility] [address] [place] [address] * (ABNORMAL) Urinalysis with microscopic (04/15/2025 8:44 AM EDT) Specific [place], Urine 1.015 1.005 - 1.030 [facility] pH Urine 6.5 5.0 - 7.5 [facility] [phone] Color, Urine Yellow Yellow [facility] [phone] Appearance Urine Clear Clear [facility] WBC Esterase Urine Negative Negative [facility] [phone] Protein, Ur 3+(A) Negative/Tra ce [facility] [phone] Glucose, Ur Negative Negative [facility] Ketones, Urine Negative Negative [facility] [phone] Blood Urine Trace(A) Negative [facility] Bilirubin Urine Negative Negative [facility] Urobilinogen Urine 0.2 0.2 - 1.0 mg/dL [facility] Nitrite, Urine Negative Negative [facility] Microscopic Examination See below: [facility] Comment:Microscopic was trae cated and was performed. Urine specimen (specimen) Urine specimen obtained by clean catch procedure / Unknown 04/15/2025 8:44 AM EDT 04/15/2025 us Juan Bridges MD LAB URINE ORDERABLES Final Re sult [facility] [address] [place] [address] * (ABNORMAL) Renal Function Panel (04/15/2025 8:44 AM EDT) Glucose 99 70 - 99 mg/dL [facility] BUN 19 8 - 27 mg/dL [facility] Creatinine 1.14 0.76 - 1.27 mg/dL [facility] eGFR CKD-EPI CR 2020 71 >59 mL/min/1.7 3 [facility] BUN/Creatinine Ratio 17 10 - 24 [facility] Sodium 141 134 - 144 mmol/L [facility] Potassium 4.2 3.5 - 5.2 mmol/L [facility] Chloride 102 96 - 106 mmol/L [facility] Bicarbonate (CO2) 20 20 - 29 mmol/L [facility] Calcium 9.5 8.6 - 10.2 mg/dL [facility] Albumin 4.5 3.9 - 4.9 g/dL [facility] Phosphorus 2.7(L) 2.8 - 4.1 mg/dL [facility] Blood specimen (specimen) Venous blood / Unknown 04/15/2025 8:44 AM EDT 04/15/2025 us Juan Bridges MD LAB BLOOD ORDERABLES Final Re sult [facility] [address] [place] [address] from Last 3 Months Insurance Medicaid [place] Member Subscriber Plan / Payer (Ef fective 2020-Present) Name:Justin Obregonnick Relation to Subscriber:Self Name:Azra Obregon Payer ID:Not on file Group ID:Not on file Type:Not on file Address: [address] Medicaid [place] Member Subscriber Plan / Payer (Ef fective 2020-Present) Name:Justin Obregonnick Relation to Subscriber:Self Name:Azra Obregon Payer ID:Not on file Group ID:Not on file Type:Not on file Address: [address] Medicare Care Teams Wolf Hunter Relationship Specialty Start Date End Date Katerine Ely DO [address] [place] [address] PCP - General Family Medicine 06/02/22
--- OUTSIDE RECORDS SUMMARY | 2025-06-06 08:58 | XMS_ITS | Clinical Summary ---
Author Organization [employer] Address [address] [place] [address] 7t [place] [address] Care Team Providers Care Manager Regional Sales Name Role Phone Katerine Ely Primary Care Provider + [phone] Allergies Active Allergy Reactions Criticality Noted Date Comments Iodinated Contrast Media High 04/13/2022 Other reaction(s): Chest pain, Difficulty breathing Other Reaction(s): TACHYCARDIA, DIFFICULTY BREATHING, CHEST PAIN Penicillin G 08/20/2022 Penicillins 11/18/2011 Other reaction(s): Unknown Shellfish Allergy High 03/22/2023 Other Reaction(s): itching/hives/nausea-vomiti ng Medications famotidine (Pepcid) 20 MG tablet Take 1 tablet by mouth. Every day 021 Active lisinopril 5 MG tablet take 2 tablet by oral route every day Active Farxiga 10 MG Take 10 mg by mouth in the morning. 024 Active Blood Pressure kit 1 each 1 (one) time per week. 1 kit 024 Active atorvastatin (Lipitor) 80 MG tablet Take 1 tablet (80 mg) by mouth at bedtime. 90 tablet 3 025 Active prazosin (Minipress) 1 MG capsule TAKE 1 CAPSULE BY MOUTH AT BEDTIME 30 capsule 025 Active triamcinolone (Nasacort) 55 MCG/ACT nasal inhaler USE 2 SPRAYS IN EACH NOSTRIL DAILY 50.7 mL 1 025 Active sertraline (Zoloft) 100 MG tablet TAKE 2 TABLETS BY MOUTH EVERY DAY 60 tablet 1 025 Active traMADol (Ultram) 50 MG tabletIndication s:Other chronic pain TAKE 1 TABLET(50 MG) BY MOUTH EVERY 6 HOURS NEEDED FOR SEVERE PAIN 84 tablet Active gabapentin (Neurontin) 600 MG tablet TAKE 1 TABLET(600 MG) BY MOUTH THREE TIMES DAILY 90 tablet Active lidocaine (Lidoderm) 5 % patch APPLY 2 PATCHES TOPICALLY IF NEEDED EACH DAY FOR MILD PAIN;REMOVE AND DISCARDWITHIN 12 HOURS OR DIRECTED BY 180 patch Active zolpidem (Ambien) 5 MG tablet TAKE 1 TABLET BY MOUTH AT BEDTIME NEEDED FOR SLEEP 30 tablet 2 Active simethicone (Mylicon) 125 MG chewable tablet Chew 1 tablet (125 mg) every 6 (six) hours if needed for flatulence. 4 times every day 60 tablet Active bismuth subsalicylate (Pepto Bismol) 262 MG chewable tablet Chew 1 tablet (262 mg) if needed each day for indigestion, diarrhea or heartburn. 30 tablet Active DULoxetine (Cymbalta) [address] Fernandez ns:Other chronic pain Take 1 capsule by mouth every day 30 capsule Active cyclobenzaprine (Flexeril) 10 MG tablet TAKE 1 TABLET BY MOUTH EVERY MORNING, AT NOON, AND EVERY NIGHT AT BEDTIME NEEDED FOR MUSCLE SPAMS 60 tablet Active cholecalciferol VITAMIN D (Vitamin D-3) 50 MCG (2000 UT) capsule Take 1 capsule (50 mcg) by mouth in the morning. 90 capsule Active Diclofenac Sodium 1 % gel Apply 2 g topically if needed in the morning, at noon, in the evening, and at bedtime (pain). As needed for pain 350 g Active acetaminophen (Mapap Arthritis Pain) 650 MG ER tabletIndication s:Chronic low back pain with sciatica, sciatica laterality unspecified, unspecified back pain laterality TAKE 1 TABLET BY MOUTH EVERY 8 HOURS NEEDED FOR PAIN OR FEVER 90 tablet Active loratadine (Claritin) 10 MG tablet Take 1 tablet (10 mg) by mouth Once per day. daily 90 tablet 2025 Active buPROPion SR (Wellbutrin SR) 100 MG 12 hr tablet TAKE 1 TABLET(100 MG) BY MOUTH DAILY 30 tablet 025 Active buPROPion SR (Wellbutrin SR) 100 MG 12 hr tablet TAKE 1 TABLET(100 MG) BY MOUTH DAILY 30 tablet 025 2024 Discontinued Active Problems Problem Noted Date Diagnosed Date Fatigue 06/05/2025 Assessment & Plan (06/05/2025 3:39 PM EDT): PCP already order a battery of labs, I advised to do them as soon as he can and I added today testosterone level as per here with request, he will be contacted with results Today I will also order sleep study Hypersomnia 06/05/2025 Assessment & Plan (06/05/2025 3:39 PM EDT): Sleep study ordered ordered today Follow-up with PCP Chronic left shoulder pain 10/01/2024 History of Helicobacter pylori infection 025 Tobacco dependence 10/25/2023 Hyperlipidemia 08/20/2022 Ankylosing spondylitis 08/20/2022 Chronic knee pain 08/20/2022 Stage 2 chronic kidney disease 05/07/2021 Chronic allergic rhinitis 02/03/2016 Chronic low back pain 02/03/2016 Chronic neck pain 02/03/2016 Essential hypertension 02/03/2016 Posttraumatic stress disorder 02/03/2016 Proteinuria 02/03/2016 Major depression, recurrent, chronic 02/03/2016 Transitional cell carcinoma of bladder (CMS/HCC) 02/03/2016 Vitamin D deficiency 02/03/2016 Encounters Date Type Department Care Team Description 06/05/2025 3:15 PM EDT Telemedicine [facility] [address] [place], [place] [phone] Lina Paez MD Chronic fatigue; Hypersomnia 06/05/2025 Travel 06/04/2025 Telephone [facility] [address] [place], [place] [phone] Katerine Ely DO Chart Prep 06/04/2025 Telephone [facility] [address] [place] [address] Katerine Ely DO 05/31/2025 Telephone [facility] [address] [place] [address] Katerine Ely DO Referral 05/18/2025 Refill [facility] [address] [place] [address] Katerine Ely DO 05/11/2025 Refill [facility] [address] [place] [address] Katerine Ely, 04/25/2025 Telephone [facility] [address] [place] [address] Katerine Ely, 04/23/2025 9:30 AM EDT Office Visit [facility] [address] [place] [phone] Katerine Ely DO Essential hypertension (Primary Dx); Other hyperlipidemia; Proteinuria, unspecified type; Major depression, recurrent, chronic (CMS/HCC); Transitional cell carcinoma of bladder (CMS/HCC); Ankylosing spondylitis, unspecified site of spine (CMS/HCC); Chronic neck pain; Chronic bilateral low back pain, unspecified whether sciatica present; Chronic pain of both knees; Chronic left shoulder pain; Foot pain, bilateral; Tobacco dependence; History of Helicobacter pylori infection; Healthcare maintenance; Dietary counseling; Exercise counseling; Other chronic pain; Chronic low back pain with sciatica, sciatica laterality unspecified, unspecified back pain laterality 04/23/2025 Travel 04/22/2025 Telephone [facility] [address] [place] [phone] Katerine Ely DO Chart Prep 04/13/2025 Refill [facility] [address] [place] [address] Katerine Ely DO 04/10/2025 Refill [facility] [address] [place] [phone] Katerine Ely DO Other chronic pain 03/28/2025 Telephone [facility] [address] [place] [phone] Katerine Ely DO Recall Appointment 03/28/2025 Travel 03/11/2025 Telephone [facility] [address] [place] [address] Katerine Ely DO Appointment Request from Last 3 Months Immunizations Immunization Administration Dates Next Due Influenza injectable quadriv alent IIV4 with preservative 05/29/2018,09/27/2017 Influenza injectable quadriv alent preservative free 06/01/2023,08/20/2022,07/16/2021,08/08,06/25/2019,08/24/2016,06/16/2015 Influenza, IIV3, injectable 07/16/2021, 5 Influenza, Split (incl. bernardo fied surface antigen) 06/29/2013,06/07/2012 Influenza, Unspecified 07/16/2021,09/20/2014 MMR 11/05/2009 Pneumococcal Polysaccharide PPSV23 04/30/2013 TD (adult), 2 Lf tetanus tox oid, preservative free, adsorbed 11/05/2009 Tdap 06/29/2013 Family History Medical History Relation Name Comments Alzheimer's disease Father Coronary artery disease Father Hypertension Father Cancer Father's Sister Asthma Mother Coronary artery disease Mother Rheum arthritis Mother Asthma Sister Diabetes Sister Relation Name Status Comments Father Father's Sister Mother Sister Social History Tobacco Use Types Packs/Day Years Used Date Smoking Tobacco: Every Day Cigarettes Smokeless Tobacco: Never Tobacco Cessation:Ready to Q uit: Not Asked; Counseling Given: Not Answered Alcohol Use Standard Drinks/Week Comments Never 0 [...] the past 12 months, has t he [email or web address], gas, oil or water company threatened to [...] Orientation Straight 07/05/2022 10 :21 AM EDT Last Filed Vital Signs Vital Sign Reading Time Taken Comments Blood Pressure 122/70 04/23/2025 8:58 AM EDT Pulse 70 04/23/2025 8:58 AM EDT Temperature 36.3 C (97.3 F) 08/21/2024 11:21 AM EST Respiratory Rate 21 04/23/2025 8:58 AM EDT Oxygen Saturation 98% 04/23/2025 8:58 AM EDT Inhaled Oxygen Concentration - - Weight 80.3 kg (177 lb) 04/23/2025 8:58 AM EDT Height 177.8 cm (5' 10 ) 04/23/2025 8:58 AM EDT Body Mass Index 25.4 04/23/2025 8:58 AM EDT Plan of Treatment Health Maintenance Due Date Last Done Comments CT Colonography 1960 FIT DNA/Cologuard 1960 FIT 1960 FOBT 1960 Sigmoidoscopy 1960 Zoster Vaccines (1 of 2) 01/28/2010 Pneumococcal Vaccine: 50+ Years (2 of 2 - PCV) 04/30/2014 04/30/2013 DTaP/Tdap/Td Vaccines (2 - Td or Tdap) 06/29/2023 06/29/2013, 11/05/2009 Depression Monitoring 02/19/2025 08/21/2024, 024 COVID-19 Vaccine (1 - season) 2025 Influenza Vaccine (#1) 2025 , 08/20/2022, 07/16/2021, Additional history exists Alcohol/Substance Use Screening 08/21/2025 08/21/2024 SDOH Screening 04/23/2026 04/23/2025 Tobacco Screening 04/23/2026 04/23/2025 Lipid Panel 11/16/2028 11/17/2023, 01/04, 05/08/2021, Additional history exists Colonoscopy 03/22/2033 03/22/2023, 07/17/2012 Colorectal Cancer Screening 03/22/2033 RSV Patients and Patients Aged 60 years or older (1 - 1-dose 75+ series) 01/28/2035 Hepatitis C Screening Completed 10/20/2022 , 04/12/2022, 03/02/2022 HIB Vaccines Aged Out No longer eligi ble based on patient's age to complete this topic HPV Vaccines Aged Out No longer eligi ble based on patient's age to complete this topic Hepatitis A Vaccines Aged Out No long er eligible based on patient's age to complete this topic Hepatitis B Vaccines Aged Out No long er eligible based on patient's age to complete this topic IPV Vaccines Aged Out No longer eligi ble based on patient's age to complete this topic Meningococcal B Vaccine Aged Out No l onger eligible based on patient's age to complete this topic Meningococcal Vaccine Aged Out No el lucho eligible based on patient's age to complete this topic RSV under 20 months Aged Out No longe r eligible based on patient's age to complete this topic Rotavirus Vaccines Aged Out No longer eligible based on patient's age to complete this topic Procedures Procedure Name Priority Date/Time Associated Diagnosis Comments LIPID PANEL, STANDARD Routine 11/17/2023 12:02 PM EDT Essential hypertension HM COLONOSCOPY Routine 03/22/2023 HEPATITIS PANEL, GENERAL Routine 10/20/2022 11:32 AM EST from Last 3 Months or Most Recently Relevant to Health Maintenance Results * (ABNORMAL) Lipid Panel, Standard (11/17/2023 12:02 PM EDT) Triglycerides 211(H) <150 mg/dL [facility] Comment:Desirable Triglyceri de: less than 150 mg/dLBorderline High Triglyceride 150-199 mg/dLHigh Triglyceride: 200-499 mg/dLVery High Triglyceride: greater than or equal to 5OO mg/dL Cholesterol 189 <200 mg/dL [facility] Comment:Desirable Cholestero l: less than 200 mg/dLBorderline High Cholesterol: 200-239 mg/dLHigh Cholesterol: greater than 239 mg/dL LDL Cholesterol Calculated 119(H) <100 mg/dL [facility] Comment:Desirable LDL: less than 100 mg/dLNear Optimal/Above Optimal LDL: 110- 129 mg/dLBorderline High LDL: 130-159 mg/dLHigh LDL: 160-189 mg/dLVery High LDL: greater than or equal to 190 mg/dL HDL Cholesterol 28(L) >40 mg/dL [facility] Comment:Desirable HDL: great er than 40 mg/dL Note: This HDL assay may give artificially low results in patients with liver disease. Blood Venous blood specimen / Unknown 11/17/2023 12:02 PM EDT 11/17/2023 1:17 PM EDT us Katerine Ely DO LAB BLOOD ORDERABLES Final R esult [facility] [address], [place] [phone] * Hm Colonoscopy (03/22/2023) Colonoscopy Normal Normal Narrative Rochelle Lyons - 03/22/2023 Recommended 10 years . 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 ~Hepatitis B Surface Antibody NONREACTIVE Nonreactive [facility] Comment:Nonreactive: < 8.00 mIU/mL Hepatitis B Core Antibody Nonreactive Nonreactive [facility] Hepatitis C Antibody Nonreactive Nonreactive [facility] Comment:Antibodies to HCV no t detected; does not exclude early acuteHCV infection. Hepatitis B Surface Ag Negative Negative [facility] 10/20/2022 11:3 2 AM EST 10/20/2022 11:32 AM EST [facility] External Provider LAB BLO OD ORDERABLES Final Result [facility] [address] [place] [address] [phone] from Last 3 Months or Most Recently Relevant to Health Maintenance Insurance [facility] STANDARD MEDICARE Care Teams Manager Regional Sales Relationship Specialty Start Date End Date Katerine Ely DO [address] [place] [phone] PCP - General Family Medicine 06/07/11
--- OUTSIDE RECORDS SUMMARY | 2025-06-06 08:58 | XMS_ITS | Encounter Summary ---
Author Organization [employer] Address [address] [place] [address] 7 [place] [address] Care Team Providers Care General Practice Name Role Phone Katerine Ely Primary Care Provider + [phone] Reason for Visit * Reason Comments Med Refill Encounter Details Date Type Department Care Team ([facility] st Contact Info) Description 01/30/2025 Refill [facility] [address] [place], [place] [phone] Cherise Cote MD [address] [place], [place] [phone] Social History Tobacco Use Types Packs/Day Years [...] housing situation today? I have julio scott 03/16/[address] you li ve. Do you have problems with any of the following? None of the above 03/16/2024 Food Insecurity Answer Date Recorded Within the past 12 months, y ou worried that your food would run out before you got money to buy more: Never True 03/16/2024 Within the past 12 months,th e food you bought just didn't last and you didn't have enough money to get more: Never True 08/2024 Transportation Answer Date Recorded In the past 12 months, has l ack of transportation kept you from medical appts, meetings, work or from getting things needed for daily living? Yes, it has kept me from medical appointments or getting medications. 03/16/2024 Utilities Answer Date Recorded In the past 12 months, has t he electric, gas, oil or water company threatened to shut off services in your home? No 03/16/2024 Depression Answer Date Recorded Patient Health Questionnaire-2 Score 5 08/21/2024 Internet Access Answer Date Recorded Internet Access Q1 Yes 05/07/2024 Internet Access Q2 Not on file 05/07/2024 Sex and Gender Information Value Date Recorded Sex Assigned at Male 07/05/2022 10:21 AM EDT Legal Sex Male 10:21 AM EDT Gender Identity Choose not to disclose 10:21 AM EDT Sexual Orientation Straight 07/05/2022 10 :21 AM EDT documented as of this encounter Plan of Treatment Not on file documented as of this encounter Visit Diagnoses Not on filedocumented in this encounter Additional Health Concerns Assessment Noted Time PHQ-9 Depression Total Score: 9 08/21/20 24 11:23 AM EST documented as of this encounter Care Teams General Practice Relationship Specialty Start Date End Date Katerine Ely DO [address] [place] [address] PCP - General Family Medicine 06/07/11 documented as of this encounter
--- OUTSIDE RECORDS SUMMARY | 2025-06-06 08:58 | XMS_ITS | Encounter Summary ---
Author Organization [employer] Address [address] [place] [address] 7[address] [place] [address] Care Team Providers Care Coal Cager Name Role Phone Katerine Ely DO Primary Care Provider + [phone] Reason for Visit * Reason Comments Med Refill Encounter Details Date Type Department Care Team (Late st Contact Info) Description 11/27/2022 Refill [facility] [address] [place], [place] [phone] Katerine Ely DO [address] [place] [address] Other chronic pain Social History Tobacco Use Types Packs/Day Years Used Date Smoking Tobacco: Every Day Cigarettes Alcohol Use Standard Drinks/Week Comments Never 0 [...] as of this encounter Visit Diagnoses Diagnosis Other chronic pain documented in this encounter Additional Health Concerns Assessment Noted Time PHQ-9 Depression Total Score: 10 022 11:30 AM EST documented as of this encounter Care Teams Coal Cager Relationship Specialty Start Date End Date Katerine Ely DO [address] [place] [address] PCP - General Family Medicine 06/07/11 documented as of this encounter
--- OUTSIDE RECORDS SUMMARY | 2025-06-06 08:58 | XMS_ITS | Encounter Summary ---
Author Organization [employer] Address [address] [place] [address] [address] [place] [address] Care Team Providers Care Continuous Pillowcase Cutter Name Role Phone Katerine Ely DO Primary Care Provider + [phone] Reason for Visit * Reason Onset Date Comments PT1 10/23/2024 Encounter Details Date Type Department Care Team ([facility] st Contact Info) Description 10/23/2024 Telephone [facility] [address] [place], [place] [phone] Katerine Ely DO [address] [place] [address] PT1 Social History Tobacco Use Types Packs/Day Years [...] AM EDT documented as of this encounter Miscellaneous Notes * Telephone Encounter - Justin Khan - 10/23/2024 9:58 AM EST Patient calling requesting PT1 Home Address verified: Y/N: Yes Provider name or facility name: [address] [place] [address] Escort needed: Y/N: No Do you have a wheelchair: Y/N: No If yes- Manual or electric: Visits: ( 2 x Monthly) Contact pt at [phone] documented in this encounter Plan of Treatment Not on file documented as of this encounter Visit Diagnoses Not on filedocumented in this encounter Additional Health Concerns Assessment Noted Time PHQ-9 Depression Total Score: 9 08/21/20 24 11:23 AM EST documented as of this encounter Care Teams Continuous Pillowcase Cutter Relationship Specialty Start Date End Date Katerine Ely DO [address] [place] [address] PCP - General Family Medicine 06/07/11 documented as of this encounter
--- OUTSIDE RECORDS SUMMARY | 2025-06-06 08:58 | XMS_ITS | Encounter Summary ---
Author Organization [employer] Address [address] [place] [address] [address] [place] [address] Care Team Providers Care Human Resources Director Name Role Phone Katerine Ely DO Primary Care Provider + [phone] Reason for Visit * Reason Comments Med Refill Encounter Details Date Type Department Care Team (Late st Contact Info) Description 08/09/2024 Refill [facility] [address] [place], [place] [phone] Katerine Ely DO [address] [place] [address] Social History Tobacco Use Types Packs/Day Years Used Date Smoking Tobacco: Every Day Cigarettes Smokeless Tobacco: Never Alcohol Use Standard Drinks/Week Comments Never 0 (1 standard drink = 0.6 oz pur e alcohol) PHQ-2 Answer Date Recorded Patient Health Questionnaire-2 Score 2 06/01/2023 Alcohol Answer Date Recorded Frequency of Alcohol Consumption Not on file 06/01/2023 Average Number of Drinks Not on file 023 Frequency of Binge Drinking Not on file 05/07 Score 0 06/01/2023 Depression Answer Date Recorded Patient Health Questionnaire-9 Score 4 01/11/2023 Housing Stability Answer Date Recorded What is [...] Answer Date Recorded Patient Health Questionnaire-2 Score 2 06/01/2023 Internet Access Answer Date Recorded Internet Access [...] Assessment Noted Time PHQ-9 Depression Total Score: 4 01/12/20 23 10:55 AM EDT documented as of this encounter Care Teams Human Resources Director Relationship Specialty Start Date End Date Katerine Ely DO [address] [place] [address] PCP - General Family Medicine 06/07/11 documented as of this encounter
--- OUTSIDE RECORDS SUMMARY | 2025-06-06 08:58 | XMS_ITS | Encounter Summary ---
Author Organization [employer] Address [address] [place] [address] [address] [place] [address] Care Team Providers Care Weight Loss Counselor Name Role Phone Katerine Ely DO Primary Care Provider + [phone] Reason for Visit * Reason Comments Med Refill Encounter Details Date Type Department Care Team (Late st Contact Info) Description 03/20/2024 Refill [facility] [address] [place], [place] [phone] Katerine Ely DO [address] [place] [address] Social History Tobacco Use Types Packs/Day Years [...] Recorded Patient Health Questionnaire-2 Score 2 06/01/2023 Sex and Gender Information Value Date Recorded [...] documented as of this encounter Care Teams Weight Loss Counselor Relationship Specialty Start Date End Date Katerine Ely DO [address] [place] [address] PCP - General Family Medicine 06/07/11 documented as of this encounter
--- OUTSIDE RECORDS SUMMARY | 2025-06-06 08:59 | XMS_ITS | Encounter Summary ---
Author Organization [employer] Address [address] [place] [address] [address] [place] [address] Care Team Providers Care Land Leases And Rentals Manager Name Role Phone Katerine Ely DO Primary Care Provider + [phone] Reason for Visit * Reason Comments Med Refill Encounter Details Date Type Department Care Team (Late st Contact Info) Description 05/18/2025 Refill [facility] [address] [place], [place] [phone] Katerine Ely DO [address] [place] [address] Social History Tobacco Use Types Packs/Day Years [...] documented as of this encounter Care Teams Land Leases And Rentals Manager Relationship Specialty Start Date End Date Katerine Ely DO [address] [place] [address] PCP - General Family Medicine 06/07/11 documented as of this encounter
--- OUTSIDE RECORDS SUMMARY | 2025-06-06 08:59 | XMS_ITS | Encounter Summary ---
Author Organization [employer] Address [address] [place] [address] [address] [place] [address] Care Team Providers Care Refuse Driver Name Role Phone Katerine Ely DO Primary Care Provider + [phone] Reason for Visit * Reason Comments Med Refill Encounter Details Date Type Department Care Team ([facility] st Contact Info) Description 11/25/2024 Refill [facility] [address] [place], [place] [phone] Katerine Ely DO [address] [place] [address] Social History Tobacco Use Types Packs/Day Years [...] documented as of this encounter Care Teams Refuse Driver Relationship Specialty Start Date End Date Katerine Ely DO [address] [place] [address] PCP - General Family Medicine 06/07/11 documented as of this encounter
--- OUTSIDE RECORDS SUMMARY | 2025-06-06 08:59 | XMS_ITS | Encounter Summary ---
Author Organization [employer] Address [address] [place] [address] 7 [place] [address] Care Team Providers Care Insurance Analyst Name Role Phone Katerine Ely DO Primary Care Provider + [phone] Reason for Visit * Reason Onset Date Comments re sent referral 08/03/2023 Encounter Details Date Type Department Care Team ([facility] st Contact Info) Description 08/03/2023 Telephone [facility] [address] [place], [place] [phone] Katerine Ely DO [address] [place] [address] re sent referral Social History Tobacco Use Types Packs/Day Years [...] housing situation today? I have julio scott 07/01/[address] you li ve. Do you have problems with any of the following? None of the above 07/01/2023 Food Insecurity Answer Date Recorded Within the past 12 months, y ou worried that your food would run out before you got money to buy more: Never True 07/01/2023 Within the past 12 months,th e food you bought just didn't last and you didn't have enough money to get more: Never True Transportation Answer Date Recorded In the past 12 months, has l ack of transportation kept you from medical appts, meetings, work or from getting things needed for daily living? No 07/01/2023 Utilities Answer Date Recorded In the past 12 months, has t he electric, gas, oil or water company threatened to shut off services in your home? No 07/01/2023 Depression Answer Date Recorded Patient Health Questionnaire-2 Score 2 06/01/2023 Sex and Gender Information Value Date Recorded Sex Assigned at Male 07/05/2022 10:21 AM EDT Legal Sex Male 10:21 AM EDT Gender Identity Choose not to disclose 10:21 AM EDT Sexual Orientation Straight 07/05/2022 10 :21 AM EDT documented as of this encounter Miscellaneous Notes * Telephone Encounter - Yola Mcgovern - 08/03/2023 12:54 PM EST Tc from pt requesting to see if we can re sent referral for Physical therapy. Education Coordinator see referral but [facility] has multiple locations. PCP Dr. ely documented in this encounter Plan of Treatment Not on file documented as of this encounter Visit Diagnoses Not on filedocumented in this encounter Additional Health Concerns Assessment Noted Time PHQ-9 Depression Total Score: 4 01/12/20 23 10:55 AM EDT documented as of this encounter Care Teams Insurance Analyst Relationship Specialty Start Date End Date Katerine Ely DO [address] [place] [address] PCP - General Family Medicine 06/07/11 documented as of this encounter
--- OUTSIDE RECORDS SUMMARY | 2025-06-06 08:59 | XMS_ITS | Encounter Summary ---
Author Organization [employer] Address [address] [place] [address] 7 [place] [address] Care Team Providers Care Cloth Finishing Range Operator Chief Name Role Phone Katerine Ely DO Primary Care Provider + [phone] Reason for Visit * Reason Onset Date Comments Appointment Request 10/13/2023 Encounter Details Date Type Department Care Team ([facility] st Contact Info) Description 10/13/2023 Telephone [facility] MED[facility]INE [address] [place], [place] [phone] Katerine Ely DO [address] [place], [place] [phone] Appointment Request Social History Tobacco Use Types Packs/Day Years [...] encounter Miscellaneous Notes * Telephone Encounter - Leelee Gasotn RN - 10/27/2023 10:55 AM EST T/C to pt. On [phone] for below message, No answer. LVM to call back on [phone]. * Telephone Encounter - Leelee Gaston RN - 10/25/2023 3:23 PM EST T/C to pt. For below message, pt. Wants to refill Tramadol. Pt. Advised that Tramadol is not due yet. Pt. Is also asking for refill for Zolpidem, pt. Advised that this medication is not filled since , it has any new or worsening symptoms, can come to walk in center or got to nearest ED. Pt. Denies, also offered apt. With another provider but denies. Pt. Schedule for follow up apt. On 11/15, todiscuss refill. Pt. Also offered if want to discuss with N, pt. Denies. [facility] crisis number is provided. Pt. Advised to go to nearest ED in case of any new or worsening symptoms. Also looking for MAPAP refill, Advised that message will be que to PCP. Message will be forward to PCP as FYI. Please review and advise if needed. ----- Message from Annia Rosario sent at 10/25/2023 3:00 PM EST ----- Regarding: Med Refill Jagruti, Pt is requested an appt with PCP re med refill. I wanted to forward message as I'm unsure ifyou can assist him with that instead of waiting for office visit as pt declined an appt with a different provider. * Telephone Encounter - Yousif Pete - 10/25/2023 12:56 PM EST Tc from pt requesting status on message below. * Telephone Encounter - Lexus Alexandre - 10/13/2023 9:34 AM EST Tc from pt requesting an appointment with PCP. Engineer Technical Staff advised provider is currently on leave but ptstill would like a call. No concerns Please contact pt at [phone] documented in this encounter Plan of Treatment Not on file documented as of this encounter Visit Diagnoses Not on filedocumented in this encounter Additional Health Concerns Assessment Noted Time PHQ-9 Depression Total Score: 4 01/12/20 23 10:55 AM EDT documented as of this encounter Care Teams Cloth Finishing Range Operator Chief Relationship Specialty Start Date End Date Katerine Ely DO [address] [place] [address] PCP - General Family Medicine 06/07/11 documented as of this encounter
--- OUTSIDE RECORDS SUMMARY | 2025-06-06 08:59 | XMS_ITS | Clinical Summary ---
Author Organization [facility] Address [address] [place] [address] Phone Care Team Providers Care [facility] Psychiatrist Name Role Phone Katerine Ely DO Primary Care Provider [phone] Allergies No known active allergies Medications No known medications Active Problems No known active problems Surgical History Surgery Date Site/Laterality Comments COLONOSCOPY W/ POLYPECTOMY 07/17/2012 PROCEDURE: NE COLSC FLX W/RMVL OF TUMOR POLYP LESION SNARE TQ Family History Medical History Relation Name Comments Asthma Mother Asthma Sister Diabetes Sister Relation Name Status Comments Mother Sister Social History Tobacco Use Types Packs/Day Years Used Date Smoking Tobacco: Never Assessed Sex and Gender Information Value Date Recorded Sex Assigned at Not on file Legal Sex Male 9:47 PM EST Gender Identity Not on file Sexual Orientation Not on file Obstetrics History Last Filed Vital Signs Vital Sign Reading Time Taken Comments Blood Pressure 105/63 01/23/2025 7:21 AM EDT Pulse 69 01/23/2025 7:21 AM EDT Temperature 37 C (98.6 F) 01/23/2025 5:02 AM EDT Respiratory Rate 18 01/23/2025 5:02 AM EDT Oxygen Saturation 97% 01/23/2025 7:21 AM EDT Inhaled Oxygen Concentration - - Weight 79.4 kg (175 lb) 01/23/2025 1:35 AM EDT Height 175.3 cm (5' 9 ) 01/23/2025 1:35 AM EDT Body Mass Index 25.84 01/23/2025 1:35 AM EDT Plan of Treatment Health Maintenance Due Date Last Done Comments Colorectal Cancer Screening: Colonoscopy 1960 Zoster Vaccines (1 of 2) 01/28/2010 Pneumococcal Vaccine: 50+ Years (2 of 2 - PCV) 04/30/2014 04/30/2013 DTaP,Tdap,and Td Vaccines (3 - Td or Tdap) 06/29/2023 06/29/2013, 11/05/2009 Abdominal Aortic Aneurysm (AAA) Screen 04/30/2024 Hepatitis C Screening 04/30/2024 Social Influencers of Health Screening 04/30/2024 Depression Screening 09/05/2024 COVID-19 Vaccine ( - season) 2025 Influenza Vaccine (#1) 2025 , 08/20/2022, 07/16/2021, Additional history exists Falls Risk Assessment 01/23/2026 01/23/2025 Hypertension/CHF/CAD Annual BMP Blood Test 01/23/2026 01/23/2025 Cholesterol Screening (Lipid Panel) 11/16/2028 11/17/2023 RSV Immunization Adult Patients (1 - 1-dose 75+ series) 01/28/2035 MMR Vaccines Aged Out 11/05/2009 No longer eligi ble based on patient's age to complete this topic HIB Vaccines Aged Out No longer eligi [...] patient's age to complete this topic Meningococcal ACWY Vaccine Aged Out N o longer eligible based on patient's age to complete this topic Meningococcal B Vaccine Aged Out No l onger eligible based on patient's age to complete this topic RSV Immunization Patients Under 20 months Aged Out No longer eligible based on patient's age to complete this topic Varicella Vaccines Aged Out No longer eligible based on patient's age to complete this topic Procedures Procedure Name Priority Date/Time Associated Diagnosis Comments COMPREHENSIVE METABOLIC PANEL STAT 01/23/2025 1:36 AM EDT from Last 3 Months or Most Recently Relevant to Health Maintenance Results * (ABNORMAL) Comprehensive metabolic panel (01/23/2025 1:36 AM EDT) [facility] Sodium 142 133 - 145 mmol/L LAB CHEMISTRY METHOD 01/23/2025 2:19 AM [facility] Potassium 4.0 3.5 - 5.5 mmol/L LAB CHEMISTRY METHOD 01/23/2025 2:19 AM [facility] Chloride 111(H) 96 - 110 mmol/L LAB CHEMISTRY METHOD 01/23/2025 2:19 AM [facility] CO2 23 21 - 32 mmol/L LAB CHEMISTRY METHOD 01/23/2025 2:19 AM [facility] Anion Gap 8 3 - 11 LAB CHEMISTRY METHOD 01/23/2025 2:19 AM [facility] Glucose 109(H) 70 - 100 mg/dL LAB CHEMISTRY METHOD 01/23/2025 2:19 AM [facility] BUN 21 5 - 25 mg/dL LAB CHEMISTRY METHOD 01/23/2025 2:19 AM [facility] Creatinine 1.23 0.70 - 1.30 mg/dL LAB CHEMISTRY METHOD 01/23/2025 2:19 AM [facility] eGFR 66 >=60 mL/min/1. 73m2 LAB CHEMISTRY METHOD 01/23/2025 2:19 AM [facility] Comment:Calculation based on the Chronic Kidney Disease Epidemiology Collaboration (CKD-EPI) equation refit without adjustment for race. BUN/Creatinine Ratio 17.1 LAB CHEMISTRY METHOD 01/23/2025 2:19 AM [facility] Calcium 8.7 8.5 - 10.5 mg/dL LAB CHEMISTRY METHOD 01/23/2025 2:19 AM [facility] AST (SGOT) 18 10 - 42 unit/L LAB CHEMISTRY METHOD 01/23/2025 2:19 AM [facility] ALT (SGPT) 22 10 - 60 unit/L LAB CHEMISTRY METHOD 01/23/2025 2:19 AM EDT [facility] Alkaline Phosphatase 73 42 - 121 unit/L LAB CHEMISTRY METHOD 01/23/2025 2:19 AM EDT [facility] Total Protein 7.1 6.0 - 8.0 g/dL LAB CHEMISTRY METHOD 01/23/2025 2:19 AM EDT [facility] Albumin 4.0 3.2 - 5.0 g/dL LAB CHEMISTRY METHOD 01/23/2025 2:19 AM EDT [facility] Total Bilirubin 0.6 0.0 - 1.4 mg/dL LAB CHEMISTRY METHOD 01/23/2025 2:19 AM EDT [facility] Blood Venous blood specimen / Unknown Venipuncture / Unknown 01/23/2025 1:36 AM EDT 01/23/2025 1:51 AM EDT Reginald Blackman MD LAB BLOOD ORDERABLES Final Resu lt [facility] [address] [place] [address], from Last 3 Months or Most Recently Relevant to Health Maintenance Insurance MEDICAID - [place] Care Teams [facility] Psychiatrist Relationship Specialty Start Date End Date Katerine Ely DO [address] [place] [address] [facility] - General 03/21/24
--- OUTSIDE RECORDS SUMMARY | 2025-06-06 08:59 | XMS_ITS | Encounter Summary ---
Author Organization [employer] Address [address] [place] [address] 7 [place] [address] Care Team Providers Care Psych Sales Specialist Name Role Phone Katerine Ely DO Primary Care Provider + [phone] Encounter Details Date Type Department Care Team ([facility] st Contact Info) Description 06/04/2025 Telephone [employer] [address] [place], [place] [phone] Katerine Ely DO [address] [place] [address] Social History Tobacco Use Types Packs/Day Years [...] encounter Miscellaneous Notes * Telephone Encounter - Alejandro White - 06/04/2025 8:28 AM EDT Incoming fax from Elke at [facility]; Called patient and he is insisting [facility] is for his and not for him. I did mention that we had gotten feedback from the office that we received confirmation that this is for him and he proceeded to state that it should be for his . Patient did not want to schedule the appt until he gets a hold of the office to get clarification on this order. Please fo llow up with patient and advise on how you would like for us to proceed with this order. documented in this encounter Plan of Treatment Not on file documented as of this encounter Visit Diagnoses Not on filedocumented in this encounter Additional Health Concerns Assessment Noted Time PHQ-9 Depression Total Score: 9 08/21/20 24 11:23 AM EST documented as of this encounter Care Teams Psych Sales Specialist Relationship Specialty Start Date End Date Katerine Ely DO [address] [place] [id number] PCP - General Family Medicine 06/07/11 documented as of this encounter
--- OUTSIDE RECORDS SUMMARY | 2025-06-06 08:59 | XMS_ITS | Encounter Summary ---
Author Organization [employer] Address [address] [place] [address] 7 [place] [address] Care Team Providers Care Edger Technician Name Role Phone Katerine Ely DO Primary Care Provider + [phone] Reason for Visit * Reason Onset Date Comments Med Refill 08/31/2023 Encounter Details Date Type Department Care Team ([facility] st Contact Info) Description 08/31/2023 Telephone [facility] MEDICINE [address] [place], [place] [phone] Katerine Ely DO [address] [place] [address] Med Refill Social History Tobacco Use Types Packs/Day Years [...] encounter Miscellaneous Notes * Telephone Encounter - Katerine Robbins LPN - 08/31/2023 10:15 AM EST Medication was sent to Drive #[id number] on 08/11/23 with 3 refills. * Telephone Encounter - Lory Mayo - 08/31/2023 10:00 AM EST TC from pt requesting medication refill. Medications needing refill : Mapap Arthritis Pain 650 MG ER tablet To be sent to: [id number] - [place] VALDEZ - [address] [facility] [address] documented in this encounter Plan of Treatment Not on file documented as of this encounter Visit Diagnoses Not on filedocumented in this encounter Additional Health Concerns Assessment Noted Time PHQ-9 Depression Total Score: 4 01/12/20 10:55 AM EDT documented as of this encounter Care Teams Edger Technician Relationship Specialty Start Date End Date Katerine Ely DO [address] [place] [id number] PCP - General Family Medicine 06/07/11 documented as of this encounter
--- OUTSIDE RECORDS SUMMARY | 2025-06-06 08:59 | XMS_ITS | Encounter Summary ---
Author Organization [employer] Address [address] [place] [address] 7 [place] [address] Care Team Providers Care Rag Washer Name Role Phone Katerine Ely DO Primary Care Provider + [phone] Reason for Visit * Reason Onset Date Comments Chart Prep 06/04/2025 Encounter Details Date Type Department Care Team ([facility] st Contact Info) Description 06/04/2025 Telephone [facility] [address] [place], [place] [phone] Katerine Ely DO [address] [place] [address] Chart Prep Social History Tobacco Use Types Packs/Day Years [...] encounter Miscellaneous Notes * Telephone Encounter - Hayde Aquino MA - 06/04/2025 3:45 PM EDT Chart Prep Labs: not done Images: not applicable Referrals: appointment pending Vaccines due: Covid, Flu, PCV20, Tdap, and Zoster Screenings: not applicable Overdue care gaps: PHQ-9 and ELPIDIO-7 documented in this encounter Plan of Treatment Not on file documented as of this encounter Visit Diagnoses Not on filedocumented in this encounter Additional Health Concerns Assessment Noted Time PHQ-9 Depression Total Score: 9 08/21/20 24 11:23 AM EST documented as of this encounter Care Teams Rag Washer Relationship Specialty Start Date End Date Katerine Ely DO [address] [place] [id number] PCP - General Family Medicine 06/07/11 documented as of this encounter
--- OUTSIDE RECORDS SUMMARY | 2025-06-06 08:59 | XMS_ITS | Encounter Summary ---
Author Organization [employer] Address [address] [place] [address] [address] [place] [address] Care Team Providers Care Seal Mixer Name Role Phone Katerine Ely DO Primary Care Provider + [phone] Encounter Details Date Type Department Care Team (Latest Contact Info) Description 06/05/2025 Travel Social History Tobacco Use Types Packs/Day Years [...] documented as of this encounter Care Teams Seal Mixer Relationship Specialty Start Date End Date Katerine Ely DO [address] [place] [address] PCP - General Family Medicine 06/07/11 documented as of this encounter
[2025-06-06 11:57] LABS: Hematocrit 46.8 % (42.0-52.0); Hemoglobin 15.3 g/dl (14.0-18.0); Mean Corpuscular HGB Conc 32.7 g/dl (31.0-36.0); Mean Corpuscular Hemoglobin 28.1 pg (27.0-33.0); Mean Corpuscular Volume 86.0 fL (80.0-98.0); NRBC Abs Auto 0.000 X10*3/uL (0.0-0.012); NRBC Pct Auto 0.0 /100WBC (0.0-0.2); Platelet Count 189 X10*3/uL (160-400); Red Blood Count 5.44 X10*6/uL (4.60-5.80); White Blood Count 6.5 X10*3/uL (4.8-10.8)
[2025-06-06 12:13] LABS: Alanine Aminotransferase 18 U/L (0-40); Albumin Level 5.0 g/dL (3.5-5.0); Alkaline Phosphatase 66 U/L (39-117); Anion Gap 11 (12-20); Aspartate Amino Transferase 26 U/L (5-37); Blood Urea Nitrogen 22 mg/dL (9-16); Calcium 9.4 mg/dL (8.4-10.2); Carbon Dioxide 29 mmol/L (22-29); Chloride 109 mmol/L (96-108); Cholesterol 224 mg/dL (<200); Estimated Glomerular Filt Rate > 60; HDL Cholesterol 33 mg/dL (>40); Potassium 4.5 mmol/L (3.3-5.1); Sodium 144 mmol/L (135-145); Total Protein 7.8 g/dL (6.5-8.0); Triglycerides 169 mg/dL (<150)
[2025-06-06 12:31] LABS: HBS Num1 0.16 mIU/mL (0-7.99); HBsAGNum1 0.34 S/CO (0.00-0.99); HIV Num 1 0.05 S/CO (0.00-0.99); Hepatitis B Surface Antigen Negative (Negative); ~HepC Num1 0.24 S/CO (0.00-0.79); ~Hepatitis B Surface Antibody NONREACTIVE (Nonreactive); ~Hepatitis C Antibody Nonreactive (Nonreactive)
[2025-06-06 12:34] LABS: Free T4 (Free Thyroxine) 0.94 ng/dL (0.71-1.85); Thyroid Stimulating Hormone 1.77 uIU/mL (0.32-4.0)
[2025-06-06 12:38] LABS: Folate 9.1 ng/mL (> or = 4.0); Vitamin B12 435 pg/mL (200-900)
[2025-06-06 12:44] LABS: Microalbum/Creatinine Ratio Ur 915.9 ug/mg cr (<30)
== END 2025-06-06 08:37 | disposition home or self-care (01) ==
LOC: HO.HHCL 08:36
PROVIDERS: PCP Family Medicine; Referring Provider Internal Medicine; Visit Provider Family Medicine
DX: I10 Essential (primary) hypertension (principal); E78.49 Other hyperlipidemia; R80.9 Proteinuria, unspecified; F33.9 Major depressive disorder, recurrent, unspecified; C67.9 Malignant neoplasm of bladder, unspecified; M45.9 Ankylosing spondylitis of unspecified sites in spine; M54.2 Cervicalgia; G89.29 Other chronic pain; M54.50 Low back pain, unspecified; M25.561 Pain in right knee; M25.562 Pain in left knee; M25.512 Pain in left shoulder; M79.671 Pain in right foot; M79.672 Pain in left foot; F17.200 Nicotine dependence, unspecified, uncomplicated; Z86.19 Personal history of other infectious and parasitic diseases; R51.9 Headache, unspecified; R63.4 Abnormal weight loss; Z00.00 Encounter for general adult medical examination without abnormal findings; Z71.3 Dietary counseling and surveillance; Z71.82 Exercise counseling
CPT/HCPCS: 36415; 80048; 80061; 80076; 82043; 82306; 82570; 82607; 82746; 83036; 84403; 84439; 84443; 85027; 86592; 86706; 86803; 87340; 87389

== ENCOUNTER 2025-08-20 13:13 | Outpatient (REF) | payer MEDICAID, SELFPAY ==
--- NOTE | ~2025-08-20 | XR_ITS ---
EXAMINATION: X-ray right shoulder X-ray right scapula CLINICAL INFORMATION: Worsening neck pain, radiating to shoulder COMPARISON: None TECHNIQUE: Right shoulder 3 views. Scapula 2 views. FINDINGS: Right shoulder: Mild acromioclavicular arthritis. Glenohumeral joint space is preserved. No acute fracture or dislocation. No abnormal soft tissue calcification. Scapula: No visible acute fracture, malalignment or suspicious bony lesion. No abnormal soft tissue calcification. XR/XR scapula RT IMPRESSION: 1. Mild acromioclavicular arthritis. 2. No acute osseous abnormality seen. Electronically signed by: Bharat Silvestre MD 08/20/2025 03:42 PM EST
--- NOTE | ~2025-08-20 | XR_ITS ---
EXAMINATION: XR CERVICAL SPINE CLINICAL INFORMATION: PAIN COMPARISON: X-rays 03/15/2022 TECHNIQUE: Cervical spine 4 views FINDINGS: No prevertebral soft tissue swelling. No acute fracture or subluxation. Atlantodens interval is maintained. Redemonstrated is anterior longitudinal ligament ossification in the cervical spine. Vertebral body heights are preserved. Intervertebral disc spaces are preserved. Findings are suggestive of DISH. XR/XR cervical spine 3V IMPRESSION: 1. No radiographic evidence of acute fracture. 2. Cervical spine findings can be seen with DISH or chronic spondyloarthropathy. Electronically signed by: Bharat Silvestre MD 08/20/2025 03:49 PM EST
--- NOTE | ~2025-08-20 | XR_ITS ---
EXAMINATION: X-ray right shoulder X-ray right scapula CLINICAL INFORMATION: Worsening neck pain, radiating to shoulder COMPARISON: None TECHNIQUE: Right shoulder 3 views. Scapula 2 views. FINDINGS: Right shoulder: Mild acromioclavicular arthritis. Glenohumeral joint space is preserved. No acute fracture or dislocation. No abnormal soft tissue calcification. Scapula: No visible acute fracture, malalignment or suspicious bony lesion. No abnormal soft tissue calcification. XR/XR shoulder RT min 2V IMPRESSION: 1. Mild acromioclavicular arthritis. 2. No acute osseous abnormality seen. Electronically signed by: Bharat Silvestre MD 08/20/2025 03:42 PM [facility]
--- OUTSIDE RECORDS SUMMARY | 2025-08-20 12:00 | XMS_ITS | Encounter Summary ---
Author Organization [employer] Address [address] [place] [address] [facility] [place] [address] Care Team Providers Care Outside Rigger Name Role Phone Katerine Ely DO Primary Care Provider + [phone] Reason for Referral * Medications - Closed Specialty Diagnoses / Procedures Referred By Americo gomes Referred To Contact Diagnoses Chronic neck pain Katerine Ely DO [address] [place], [place] Phone: tel: fax: Referral ID Status Reason Start Date Expiration Date Visits Re quested Visits Authorized [id number] Closed 1 1 * Medications - Closed Specialty Diagnoses / Procedures Referred By Americo gomes Referred To Contact Diagnoses Chronic neck pain Katerine Ely DO [address] [place], [place] Phone: tel: fax: Referral ID Status Reason Start Date Expiration Date Visits Re quested Visits Authorized [id number] Closed 1 1 Reason for Visit * Reason Comments sick visit Encounter Details Date Type Department Care Team (Late st Contact Info) Description 08/20/2025 12:00 PM EST Office Visit [facility] [address] [place], [place] [phone] Katerine Ely DO [address] [place], [place] Chronic neck pain (Primary Dx); Chronic right shoulder pain; Pain of right scapula; Chronic nasal congestion; Other chronic pain; Chronic low back pain with sciatica, sciatica laterality unspecified, unspecified back pain laterality Social History Tobacco Use Types Packs/Day Years Used Date Smoking Tobacco: Every Day Cigarettes Passive Smoke Exposure: Current Smokeless Tobacco: Never Alcohol Use Standard Drinks/Week [...] AM EDT documented as of this encounter Last Filed Vital Signs Vital Sign Reading Time Taken Comments Blood Pressure 130/76 08/20/2025 12:18 PM EST Pulse 70 08/20/2025 12:18 PM EST Temperature 36.9 C (98.5 F) 08/20/2025 12:18 PM EST Respiratory Rate 17 08/20/2025 12:18 PM EST Oxygen Saturation 98% 08/20/2025 12:18 PM EST Inhaled Oxygen Concentration - - Weight 77.3 kg (170 lb 6.4 oz) 08/20/2025 12:18 PM EST Height 177.8 cm (5' 10 ) 08/20/2025 12:18 PM EST Body Mass Index 24.45 08/20/2025 12:18 PM EST documented in this encounter Plan of Treatment Upcoming Encounters Date Type Department Care Team (Late st Contact Info) Description 09/17/2025 10:45 AM EST Office Visit [facility] [address] [place] [address] Katerine Ely DO [address] [place] [address] Scheduled Orders Name Type Priority Associated Diagnoses Orde r Schedule XR Cervical Spine 2-3 Views Imaging Routine Chronic neck pain Chronic right shoulder pain Pain of right scapula Expected: 08/20/2025, Expires: 08/20/2026 documented as of this encounter Procedures Procedure Name Priority Date/Time Associated Diagnosis Comments XR SHOULDER 2+ VIEWS RIGHT Routine 08/20/2025 2:20 PM EST Chronic neck pain Chronic right shoulder pain Pain of right scapula XR SCAPULA RIGHT Routine 08/20/2025 1:51 PM EST Chronic neck pain Chronic right shoulder pain Pain of right scapula documented in this encounter Results * XR Shoulder 2+ Views Right (08/20/2025 2:20 PM EST) Anatomical Region Laterality Modality Upper Extremities, Shoulder Right Radi ographic Imaging 08/20/2025 2:20 PM EST Narrative 08/20/2025 3:45 PM EST [facility] [address] [place] [address] XRay Report Signed Patient: Azra Obregon MR#: [id number] : 1960 Acct:[id number] Age/Sex: 65 / M ADM Date: 08/20/25 Loc: JONICX Attending Dr: Katerine Ely DO Ordering Physician: Katerine Ely DO Date of Service: 08/20/25 Procedure(s): XR shoulder RT min 2V Accession Number(s): [id number] cc: Katerine Ely DO Reason for Exam: worsening neck pain radiating to R shoulder EXAMINATION: X-ray right shoulder X-ray right scapula CLINICAL INFORMATION: Worsening neck pain, radiating to shoulder COMPARISON: None TECHNIQUE: Right shoulder 3 views. Scapula 2 views. FINDINGS: Right shoulder: Mild acromioclavicular arthritis. Glenohumeral joint space is preserved. No acute fracture or dislocation. No abnormal soft tissue calcification. Scapula: No visible acute fracture, malalignment or suspicious bony lesion. No abnormal soft tissue calcification. XR/XR shoulder RT min 2V IMPRESSION: 1. Mild acromioclavicular arthritis. 2. No acute osseous abnormality seen. Electronically signed by: Bharat Silvestre MD 08/20/2025 03:42 PM EST Dictated By: Bharat Silvestre MD Signed By: <Electronically signed by Bharat Silvestre MD in OV> 08/20/25 1542 DD/ 1420 TD/TT: 08/20/25 1436 Dobby Loom Fixer: Procedure Note Donotuseinterpreter, Image - 08/20/[address] [address] XRay Report Signed Patient: Azra ObregonMR#: [id number] : 1960Acct:[id number] Age/Sex: 65 / MADM Date: 08/20/25 Loc: HOVincentHHCX Attending Dr: Katerine Ely DO Ordering Physician: Katerine Ely DO Date of Service: 08/20/25 Procedure(s): XR shoulder RT min 2V Accession Number(s): [id number] cc: Katerine Ely DO Reason for Exam: worsening neck pain radiating to R shoulder EXAMINATION: X-ray right shoulder X-ray right scapula CLINICAL INFORMATION: Worsening neck pain, radiating to shoulder COMPARISON: None TECHNIQUE: Right shoulder 3 views. Scapula 2 views. FINDINGS: Right shoulder: Mild acromioclavicular arthritis. Glenohumeral joint space is preserved. No acute fracture or dislocation. No abnormal soft tissue calcification. Scapula: No visible acute fracture, malalignment or suspicious bony lesion. No abnormal soft tissue calcification. XR/XR shoulder RT min 2V IMPRESSION: 1. Mild acromioclavicular arthritis. 2. No acute osseous abnormality seen. Electronically signed by: Bharat Silvestre MD 08/20/2025 03:42 PM EST Dictated By: Bharat Silvestre MD Signed By: <Electronically signed by Bharat Silvestre MD in OV> 08/20/25 1542 DD/ 1420 TD/TT: 08/20/25 1436 Dobby Loom Fixer: MATIAS us Katerine Ely DO IMG XR PROCEDURES Edited Res ult - Final * XR Scapula Right (08/20/2025 1:51 PM EST) Anatomical Region Laterality Modality Body, Scapula Right Radiographic Yadira ging 08/20/2025 1:51 PM EST Narrative 08/20/2025 3:45 PM EST [address] [address] XRay Report Signed Patient: Azra Obregon MR#: [id number] : 1960 Acct:[id number] Age/Sex: 65 / M ADM Date: 08/20/25 Loc: HO.HHCX Attending Dr: aKterine Ely DO Ordering Physician: Katerine Ely DO Date of Service: 08/20/25 Procedure(s): XR scapula RT Accession Number(s): [id number] cc: Katerine Ely DO Reason for Exam: R scapular pain, swelling and TTP x 2 mos EXAMINATION: X-ray right shoulder X-ray right scapula CLINICAL INFORMATION: Worsening neck pain, radiating to shoulder COMPARISON: None TECHNIQUE: Right shoulder 3 views. Scapula 2 views. FINDINGS: Right shoulder: Mild acromioclavicular arthritis. Glenohumeral joint space is preserved. No acute fracture or dislocation. No abnormal soft tissue calcification. Scapula: No visible acute fracture, malalignment or suspicious bony lesion. No abnormal soft tissue calcification. XR/XR scapula RT IMPRESSION: 1. Mild acromioclavicular arthritis. 2. No acute osseous abnormality seen. Electronically signed by: Bharat Silvestre MD 08/20/2025 03:42 PM [facility] Dictated By: Bharat Silvestre MD Signed By: <Electronically signed by Bharat Silvestre MD in OV> 08/20/25 1542 DD/ 1351 TD/TT: 08/20/25 1436 Dobby Loom Fixer: MATIAS Procedure Note Donotuseinterpreter, Image - 08/20/[address] [address] XRay Report Signed Patient: Beata Obregon#: [id number] : 1960Acct:[id number] Age/Sex: 65 / MADM Date: 08/20/25 Loc: HO.HHCX Attending Dr: Katerine Ely DO Ordering Physician: Katerine Ely DO Date of Service: 08/20/25 Procedure(s): XR scapula RT Accession Number(s): [id number] cc: Katerine Ely DO Reason for Exam: R scapular pain, swelling and TTP x 2 mos EXAMINATION: X-ray right shoulder X-ray right scapula CLINICAL INFORMATION: Worsening neck pain, radiating to shoulder COMPARISON: None TECHNIQUE: Right shoulder 3 views. Scapula 2 views. FINDINGS: Right shoulder: Mild acromioclavicular arthritis. Glenohumeral joint space is preserved. No acute fracture or dislocation. No abnormal soft tissue calcification. Scapula: No visible acute fracture, malalignment or suspicious bony lesion. No abnormal soft tissue calcification. XR/XR scapula RT IMPRESSION: 1. Mild acromioclavicular arthritis. 2. No acute osseous abnormality seen. Electronically signed by: Bharat Silvestre MD 08/20/2025 03:42 PM EST RP Dictated By: Bharat Silvestre MD Signed By: <Electronically signed by Bharat Silvestre MD in OV> 08/20/25 1542 DD/ 1351 TD/TT: 08/20/25 1436 Dobby Loom Fixer: MATIAS Katerine Ely DO IMG XR PROCEDURES Edited Res ult - Final documented in this encounter Visit Diagnoses Diagnosis Chronic neck pain- Primary Cervicalgia Chronic right shoulder pain Pain in joint, shoulder region Pain of right scapula Chronic nasal congestion Other diseases of nasal cavity and sinuses Other chronic pain Chronic low back pain with sciatica, sciatica laterality unspecified, unspecified back pain laterality documented in this encounter Additional Health Concerns Assessment Noted Time PHQ-9 Depression Total Score: 9 08/21/20 24 11:23 AM EST documented as of this encounter Care Teams Outside Rigger Relationship Specialty Start Date End Date Katerine Ely DO [address] [place] [id number] PCP - General Family Medicine 06/07/11 documented as of this encounter
--- OUTSIDE RECORDS SUMMARY | 2025-08-20 17:15 | XMS_ITS | Encounter Summary ---
Author Organization [employer] Address [address] [place] [address] 7[address] [place] [address] Care Team Providers Care Slot Attendant Name Role Phone Katerine Ely DO Primary Care Provider + [phone] Encounter Details Date Type Department Care Team (Latest Contact Info) Description 08/20/2025 Travel Social History Tobacco Use Types Packs/Day [...] as of this encounter Plan of Treatment Upcoming Encounters Date Type Department Care Team (Late st Contact Info) Description 09/17/2025 10:45 AM EST Office Visit [facility]INE [address] [place] [address] Katerine Ely DO [address] [place] [address] documented as of this encounter Visit Diagnoses Not on filedocumented in this encounter Additional Health Concerns Assessment Noted Time PHQ-9 Depression Total Score: 9 08/21/20 24 11:23 AM EST documented as of this encounter Care Teams Slot Attendant Relationship Specialty Start Date End Date Katerine Ely DO [address] [place] [address] PCP - General Family Medicine 06/07/11 documented as of this encounter
--- OUTSIDE RECORDS SUMMARY | 2025-08-20 17:15 | XMS_ITS | Clinical Summary ---
Author Organization [facility] Address [address] [place] [address] Phone Care Team Providers Care Certified Physical Therapist Assistant Name Role Phone Katerine Ely DO Primary Care Provider [phone] Allergies No known active allergies Medications No known medications Active Problems No known active problems Surgical History Surgery Date Site/Laterality Comments COLONOSCOPY W/ POLYPECTOMY 07/17/2012 PROCEDURE: [place] COLSC FLX W/RMVL OF TUMOR POLYP LESION [...] (AAA) Screen 04/30/2024 Hepatitis C Screening 04/30/2024 Medicare Annual Wellness Visit 04/30/2024 Social Influencers of Health Screening 04/30/2024 Depression Screening 09/05/2024 COVID-19 Vaccine (1 - season) 2025 Influenza [...] Comprehensive metabolic panel (01/23/2025 1:36 AM EDT) [facility] Signature Sodium 142 133 - 145 mmol/L LAB CHEMISTRY METHOD 01/23/2025 2:19 AM [facility] Potassium 4.0 3.5 - 5.5 mmol/L LAB CHEMISTRY METHOD 01/23/2025 2:19 AM [facility] Chloride 111(H) 96 - 110 mmol/L LAB CHEMISTRY METHOD 01/23/2025 2:19 AM [facility] CO2 23 21 - 32 mmol/L LAB CHEMISTRY METHOD 01/23/2025 2:19 AM [facility] Anion Gap 8 3 - 11 LAB CHEMISTRY METHOD 01/23/2025 2:19 AM [facility] Glucose 109(H) 70 - 100 mg/dL LAB CHEMISTRY METHOD 01/23/2025 2:19 AM [facility] BUN 21 5 - 25 mg/dL LAB CHEMISTRY METHOD 01/23/2025 2:19 AM [facility] Creatinine 1.23 0.70 - 1.30 mg/dL LAB CHEMISTRY METHOD 01/23/2025 2:19 AM [facility] eGFR 66 >=60 mL/min/1. 73m2 LAB CHEMISTRY METHOD 01/23/2025 2:19 AM [facility] Comment:Calculation based on the Chronic Kidney Disease Epidemiology Collaboration (CKD-EPI) equation refit without adjustment for race. BUN/Creatinine Ratio 17.1 LAB CHEMISTRY METHOD 01/23/2025 2:19 AM [facility] Calcium 8.7 8.5 - 10.5 mg/dL LAB CHEMISTRY METHOD 01/23/2025 2:19 AM [facility] AST (SGOT) 18 10 - 42 unit/L LAB CHEMISTRY METHOD 01/23/2025 2:19 AM [facility] ALT (SGPT) 22 10 - 60 unit/L LAB CHEMISTRY METHOD 01/23/2025 2:19 AM EDT [facility] Alkaline Phosphatase 73 42 - 121 unit/L LAB CHEMISTRY METHOD 01/23/2025 2:19 AM EDT [facility] Total Protein 7.1 6.0 - 8.0 g/dL LAB CHEMISTRY METHOD 01/23/2025 2:19 AM EDT [facility] Albumin 4.0 3.2 - 5.0 g/dL LAB CHEMISTRY METHOD 01/23/2025 2:19 AM EDT [facility] Total Bilirubin 0.6 0.0 - 1.4 mg/dL LAB CHEMISTRY METHOD 01/23/2025 2:19 AM EDT [facility] Blood Venous blood specimen / Unknown Venipuncture / Unknown 01/23/2025 1:36 AM EDT 01/23/2025 1:51 AM EDT us Reginald Blackman MD LAB BLOOD ORDERABLES Final Resu lt [facility] [address] [place] [address], from Last 3 Months or Most Recently Relevant to Health Maintenance Insurance MEDICAID - [place] MEDICARE Care Teams Certified Physical Therapist Assistant Relationship Specialty Start Date End Date Katerine Ely DO [address] [place] [address] PCP - General 03/21/24
--- OUTSIDE RECORDS SUMMARY | 2025-08-20 17:15 | XMS_ITS | Encounter Summary ---
Author Organization [employer] Address [address] [place] [address] 7 [place] [address] Care Team Providers Care Hearing Health Technician Name Role Phone Katerine Ely DO Primary Care Provider + [phone] Reason for Visit * Reason Onset Date Comments re sent referral 08/03/2023 Encounter Details Date Type Department Care Team ([facility] st Contact Info) Description 08/03/2023 Telephone [facility] MED[facility]INE [address] [place], [place] [phone] Katerine Ely DO [address] [place] [address] re sent referral Social History Tobacco Use [...] can re sent referral for Physical therapy. [facility] see referral but [facility] has multiple locations. PCP Dr. ely documented in this encounter Plan of Treatment Upcoming Encounters Date Type Department Care Team (Late st Contact Info) Description 09/17/2025 10:45 AM EST Office Visit [facility]INE [address] [place] [address] Katerine Ely DO [address] [place] [address] documented as of this encounter Visit Diagnoses Not on filedocumented in this encounter Additional Health Concerns Assessment Noted Time PHQ-9 Depression Total Score: 4 01/12/20 23 10:55 AM EDT documented as of this encounter Care Teams Hearing Health Technician Relationship Specialty Start Date End Date Katerine Ely DO [address] [place] [address] PCP - General Family Medicine 06/07/11 documented as of this encounter
--- OUTSIDE RECORDS SUMMARY | 2025-08-20 17:15 | XMS_ITS | Encounter Summary ---
Author Organization [employer] Address [address] [place] [address] 7 [place] [address] Care Team Providers Care Ditching Machine Operating Engineer Name Role Phone Katerine Ely DO Primary Care Provider + [phone] Reason for Visit * Reason Comments Med Refill Encounter Details Date Type Department Care Team (Late st Contact Info) Description 08/09/2024 Refill [facility]INE [address] [place], [place] [phone] Katerine Ely DO [address] [place] [address] Social History Tobacco Use Types Packs/Day Years [...] Description 09/17/2025 10:45 AM EST Office Visit [facility] [address] [place] [address] Katerine Ely DO [address] [place] [address] documented as of this encounter Visit Diagnoses Not on filedocumented in this encounter Additional Health Concerns Assessment Noted Time PHQ-9 Depression Total Score: 4 01/12/20 23 10:55 AM EDT documented as of this encounter Care Teams Ditching Machine Operating Engineer Relationship Specialty Start Date End Date Katerine Ely DO [address] [place] [address] PCP - General Family Medicine 06/07/11 documented as of this encounter
--- OUTSIDE RECORDS SUMMARY | 2025-08-20 17:15 | XMS_ITS | Encounter Summary ---
Author Organization [employer] Address [address] [place] [address] 7 [place] [address] Care Team Providers Care Student Advisor Name Role Phone Katerine Ely DO Primary Care Provider + [phone] Reason for Visit * Reason Onset Date Comments PT1 10/23/2024 Encounter Details Date Type Department Care Team ([facility] st Contact Info) Description 10/23/2024 Telephone [facility] MED[facility]INE [address] [place], [place] [phone] Katerine Ely DO [address] [place] [address] PT1 Social History Tobacco Use Types Packs/Day [...] Y/N: Yes Provider name or facility name: [address] [place] [address] Escort needed: Y/N: No Do you have a wheelchair: Y/N: No If yes- Manual or electric: Visits: ( 2 x Monthly) Contact pt at [phone] documented in this encounter Plan of Treatment Upcoming Encounters Date Type Department Care Team (Late st Contact Info) Description 09/17/2025 10:45 AM EST Office Visit [facility] MED[facility]INE [address] [place], [place] [phone] Katerine Ely DO [address] [place] [address] documented as of this encounter Visit Diagnoses Not on filedocumented in this encounter Additional Health Concerns Assessment Noted Time PHQ-9 Depression Total Score: 9 08/21/20 24 11:23 AM EST documented as of this encounter Care Teams Student Advisor Relationship Specialty Start Date End Date Katerine Ely DO [address] [place] [address] PCP - General Family Medicine 06/07/11 documented as of this encounter
--- OUTSIDE RECORDS SUMMARY | 2025-08-20 17:15 | XMS_ITS | Encounter Summary ---
Author Organization [employer] Address [address] [place] [address] 7 [place] [address] Care Team Providers Care Personnel Placement Specialist Name Role Phone Katerine Ely DO Primary Care Provider + [phone] Reason for Visit * Reason Comments Med Refill Encounter Details Date Type Department Care Team (Late st Contact Info) Description 11/27/2022 Refill [facility] [address] [place] [address] Katerine Ely DO [address] [place] [address] Other chronic pain Social History Tobacco Use [...] Description 09/17/2025 10:45 AM EST Office Visit [facility] MED[facility]INE [address] [place] [address] Katerine Ely DO [address] [place] [address] documented as of this encounter Visit Diagnoses Diagnosis Other chronic pain documented in this encounter Additional Health Concerns Assessment Noted Time PHQ-9 Depression Total Score: 10 022 11:30 AM EST documented as of this encounter Care Teams Personnel Placement Specialist Relationship Specialty Start Date End Date Katerine Ely DO [address] [place] [address] PCP - General Family Medicine 06/07/11 documented as of this encounter
--- OUTSIDE RECORDS SUMMARY | 2025-08-20 17:15 | XMS_ITS | Encounter Summary ---
Author Organization [employer] Address [address] [place] [address] 7 [place] [address] Care Team Providers Care Medical Staffing Coordinator Name Role Phone Katerine Ely DO Primary Care Provider + [phone] Reason for Visit * Reason Comments Med Refill Encounter Details Date Type Department Care Team ([facility] st Contact Info) Description 11/25/2024 Refill [facility] MED[facility] [address] [place], [place] [phone] Katerine Ely DO [address] [place] [address] Social History Tobacco Use Types Packs/Day Years [...] Description 09/17/2025 10:45 AM EST Office Visit [facility]INE [address] [place] [address] Katerine Ely DO [address] [place] [address] documented as of this encounter Visit Diagnoses Not on filedocumented in this encounter Additional Health Concerns Assessment Noted Time PHQ-9 Depression Total Score: 9 08/21/20 24 11:23 AM EST documented as of this encounter Care Teams Medical Staffing Coordinator Relationship Specialty Start Date End Date Katerine Ely DO [address] [place] [address] PCP - General Family Medicine 06/07/11 documented as of this encounter
--- OUTSIDE RECORDS SUMMARY | 2025-08-20 17:15 | XMS_ITS | Encounter Summary ---
Author Organization [employer] Address [address] [place] [address] 7 [place] [address] Care Team Providers Care School Based Therapist Name Role Phone Katerine Ely DO Primary Care Provider + [phone] Reason for Visit * Reason Comments Med Refill Encounter Details Date Type Department Care Team (Late st Contact Info) Description 05/18/2025 Refill [facility] [address] [place], [place] [phone] Katerine Ely DO [address] [place] [address] Social History Tobacco Use Types Packs/Day Years [...] Description 09/17/2025 10:45 AM EST Office Visit [facility] [address] [place] [address] Katerine Ely DO [address] [place] [address] documented as of this encounter Visit Diagnoses Not on filedocumented in this encounter Additional Health Concerns Assessment Noted Time PHQ-9 Depression Total Score: 9 08/21/20 24 11:23 AM EST documented as of this encounter Care Teams School Based Therapist Relationship Specialty Start Date End Date Katerine Ely DO [address] [place] [address] PCP - General Family Medicine 06/07/11 documented as of this encounter
--- OUTSIDE RECORDS SUMMARY | 2025-08-20 17:15 | XMS_ITS | Encounter Summary ---
Author Organization [employer] Address [address] [place] [address] 7 [place] [address] Care Team Providers Care Polymerization Supervisor Name Role Phone Katerine Ely DO Primary Care Provider + [phone] Reason for Visit * Reason Onset Date Comments Med Refill 08/31/2023 Encounter Details Date Type Department Care Team ([facility] st Contact Info) Description 08/31/2023 Telephone [facility] [address] [place], [place] [phone] Katerine Ely DO [address] [place] [address] Med Refill Social History Tobacco Use Types [...] 10:15 AM EST Medication was sent to [id number] on 08/11/23 with 3 refills. * Telephone Encounter - Lory Mayo - 08/31/2023 10:00 AM EST TC from pt requesting medication refill. Medications needing refill : Mapap Arthritis Pain 650 MG ER tablet To be sent to: [id number] - [place] - [address] [facility] [address] documented in this encounter Plan of Treatment Upcoming Encounters Date Type Department Care Team (Late st Contact Info) Description 09/17/2025 10:45 AM EST Office Visit [facility] [address] [place] [address] Katerine Ely DO [address] [place], [place] [phone] documented as of this encounter Visit Diagnoses Not on filedocumented in this encounter Additional Health Concerns Assessment Noted Time PHQ-9 Depression Total Score: 4 01/12/20 23 10:55 AM EDT documented as of this encounter Care Teams Polymerization Supervisor Relationship Specialty Start Date End Date Katerine Ely DO [address] [place] [address] PCP - General Family Medicine 06/07/11 documented as of this encounter
--- OUTSIDE RECORDS SUMMARY | 2025-08-20 17:15 | XMS_ITS | Clinical Summary ---
Author Organization [employer] Address [address] [place] [address] [address] [place] [address] Care Team Providers Care Superintendent Greens Name Role Phone Katerine Ely Primary Care Provider + [phone] Allergies Active Allergy Reactions Criticality Noted Date Comments Iodinated Contrast Media High 04/13/2022 Other reaction(s): Chest pain, Difficulty breathing Other Reaction(s): TACHYCARDIA, DIFFICULTY BREATHING, CHEST PAIN Penicillin G 08/20/2022 Penicillins 11/18/2011 Other reaction(s): Unknown Shellfish Allergy High 03/22/2023 Other Reaction(s): itching/hives/nausea-vomiti ng Medications lisinopril 5 MG tablet take 2 tablet by oral route every day Active Farxiga 10 MG Take 10 mg by mouth in the morning. 024 Active Blood Pressure kit 1 each 1 (one) time per week. 1 kit 024 Active atorvastatin (Lipitor) 80 MG tablet Take 1 tablet (80 mg) by mouth at bedtime. 90 tablet 3 025 Active gabapentin (Neurontin) 600 MG tablet TAKE 1 TABLET(600 MG) BY MOUTH THREE TIMES DAILY 90 tablet 3 025 Active zolpidem (Ambien) 5 MG tablet TAKE 1 TABLET BY MOUTH AT BEDTIME NEEDED FOR SLEEP 30 tablet 2 025 Active simethicone (Mylicon) 125 MG chewable tablet Chew 1 tablet (125 mg) every 6 (six) hours if needed for flatulence. 4 times every day 60 tablet 3 025 Active bismuth subsalicylate (Pepto Bismol) 262 MG chewable tablet Chew 1 tablet (262 mg) if needed each day for indigestion, diarrhea or heartburn. 30 tablet 3 Active cholecalciferol VITAMIN D (Vitamin D-3) 50 MCG (2000 UT) capsule Take 1 capsule (50 mcg) by mouth in the morning. 90 capsule 3 Active traMADol (Ultram) 50 MG tabletIndication s:Other chronic pain Take 1 tablet (50 mg) by mouth every 6 (six) hours if needed for severe pain. 84 tablet Active lidocaine (Lidoderm) 5 % patchIndications :Chronic neck pain Apply 2 patches topically if needed each day for mild pain. Remove & discard patch within 12 hours or as directed by MD. 180 patch 3 Active cyclobenzaprine (Flexeril) 10 MG tabletIndication s:Chronic neck pain Take 1 tablet (10 mg) by mouth if needed at bedtime for muscle spasms. 30 tablet 3 Active DULoxetine (Cymbalta) [address] capsuleIndicatio ns:Other chronic pain Take 1 capsule by mouth every day 30 capsule 3 Active loratadine (Claritin) 10 MG tablet Take 1 tablet (10 mg) by mouth Once per day. daily 90 tablet 3 025 2025 Active sertraline (Zoloft) 100 MG tablet Take 2 tablets (200 mg) by mouth Once per day. 60 tablet 3 Active buPROPion SR (Wellbutrin SR) 100 MG 12 hr tablet Take 1 tablet (100 mg) by mouth Once per day. 30 tablet 3 Active acetaminophen (Mapap Arthritis Pain) 650 MG ER tabletIndication s:Chronic low back pain with sciatica, sciatica laterality unspecified, unspecified back pain laterality TAKE 1 TABLET BY MOUTH EVERY 8 HOURS NEEDED FOR PAIN OR FEVER 90 tablet 3 Active fluticasone (Flonase) 50 MCG/ACT nasal spray Administer 2 sprays into each nostril Once per day. Shake gently. Before first use, prime pump. After use, clean tip and replace cap. 16 g 3 Active Diclofenac Sodium 1 % gel Apply 2 g topically if needed in the morning, at noon, in the evening, and at bedtime (pain). As needed for pain 350 g 3 Active prazosin (Minipress) 1 MG capsule TAKE 1 CAPSULE BY MOUTH AT BEDTIME 30 capsule 3 Active baclofen (Lioresal) 10 MG tablet Take 1-2 tablets (10-20 mg) by mouth if needed in the morning and at bedtime for muscle spasms. 60 tablet 3 2025 Active azelastine (Astelin) 0.1 % nasal spray Administer 2 sprays into each nostril at bedtime. Use in each nostril as directed 30 mL 3 2025 Active famotidine (Pepcid) 20 MG tablet Take 1 tablet by mouth. Every day 021 2024 Discontinued( ed list cleanup (will not trigger notification to Pharmacy)) prazosin (Minipress) 1 MG capsule TAKE 1 CAPSULE BY MOUTH AT BEDTIME 30 capsule 2024 Discontinued(R eorder (will not trigger notification to Pharmacy)) triamcinolone (Nasacort) 55 MCG/ACT nasal inhaler USE 2 SPRAYS IN EACH NOSTRIL DAILY 50.7 mL 1 2024 Discontinued sertraline (Zoloft) 100 MG tablet TAKE 2 TABLETS BY MOUTH EVERY DAY 60 tablet 1 2024 Discontinued(R eorder (will not trigger notification to Pharmacy)) traMADol (Ultram) 50 MG tabletIndication s:Other chronic pain TAKE 1 TABLET(50 MG) BY MOUTH EVERY 6 HOURS NEEDED FOR SEVERE PAIN 84 tablet 2024 Discontinued(R eorder (will not trigger notification to Pharmacy)) lidocaine (Lidoderm) 5 % patch APPLY 2 PATCHES TOPICALLY IF NEEDED EACH DAY FOR MILD PAIN;REMOVE AND DISCARDWITHIN 12 HOURS OR DIRECTED BY 180 patch 3 2024 Discontinued(R eorder (will not trigger notification to Pharmacy)) DULoxetine (Cymbalta) [address] Tobytieve ns:Other chronic pain Take 1 capsule by mouth every day 30 capsule 3 2024 Discontinued(R eorder (will not trigger notification to Pharmacy)) cyclobenzaprine (Flexeril) 10 MG tablet TAKE 1 TABLET BY MOUTH EVERY MORNING, AT NOON, AND EVERY NIGHT AT BEDTIME NEEDED FOR MUSCLE SPAMS 60 tablet 3 2024 Discontinued(R eorder (will not trigger notification to Pharmacy)) Diclofenac Sodium 1 % gel Apply 2 g topically if needed in the morning, at noon, in the evening, and at bedtime (pain). As needed for pain 350 g 3 2024 Discontinued(R eorder (will not trigger notification to Pharmacy)) acetaminophen (Mapap Arthritis Pain) 650 MG ER tabletIndication s:Chronic low back pain with sciatica, sciatica laterality unspecified, unspecified back pain laterality TAKE 1 TABLET BY MOUTH EVERY 8 HOURS NEEDED FOR PAIN OR FEVER 90 tablet 3 2024 Discontinued(R eorder (will not trigger notification to Pharmacy)) loratadine (Claritin) 10 MG tablet Take 1 tablet (10 mg) by mouth Once per day. daily 90 tablet 3 2024 Discontinued(R eorder (will not trigger notification to Pharmacy)) buPROPion SR (Wellbutrin SR) 100 MG 12 hr tablet TAKE 1 TABLET(100 MG) BY MOUTH DAILY 30 tablet 2024 Discontinued(R eorder (will not trigger notification to Pharmacy)) fluticasone (Flonase) 50 MCG/ACT nasal spray SHAKE LIQUID AND USE 1 SPRAY IN EACH NOSTRIL DAILY FOR 10 DAYS 2024 Discontinued(R eorder (will not trigger notification to Pharmacy)) Active Problems Problem Noted Date Diagnosed Date [...] Encounters Date Type Department Care Team Description 08/20/2025 12:00 PM EST Office Visit [facility] [place] [address] Katerine Ely DO Chronic neck pain (Primary Dx); Chronic right shoulder pain; Pain of right scapula; Chronic nasal congestion; Other chronic pain; Chronic low back pain with sciatica, sciatica laterality unspecified, unspecified back pain laterality 08/20/2025 Orders Only [facility] [place] [address] Katerine lEy DO 08/20/2025 Travel 08/16/2025 Telephone [facility] [place] [address] Katerine Ely DO Nurse Triage 06/11/2025 Results Follow-Up [facility] [place] [address] Lina Paez MD Testosterone, Total, males (Adult), [place] 06/05/2025 3:15 PM EDT Telemedicine [facility] [address] Lina Paez MD Chronic fatigue; Hypersomnia 06/05/2025 Travel 06/04/2025 Telephone [facility] [place] [address] Katerine Ely DO Chart Prep 06/04/2025 Telephone [facility] [address] [place] [address] Katerine Ely DO 05/31/2025 Telephone [facility] [address] [place] [address] Katerine Ely DO Referral from Last 3 Months Immunizations Immunization Administration [...] Mass Index 24.45 08/20/2025 12:18 PM EST Plan of Treatment Upcoming Encounters Date Type Department Care Team (Late st Contact Info) Description 09/17/2025 10:45 AM EST Office Visit [facility] [address] [place] [address] Kathie ElyferDO [address] [place], [place] [id number] Health Maintenance Due Date Last Done Comments CT Colonography 1960 FIT DNA/Cologuard 1960 FIT 1960 FOBT 1960 Sigmoidoscopy 1960 Zoster Vaccines (1 of 2) 01/28/2010 Pneumococcal Vaccine: 50+ Years (2 of 2 - PCV) 04/30/2014 04/30/2013 DTaP/Tdap/Td Vaccines (2 - Td or Tdap) 06/29/2023 06/29/2013, 11/05/2009 Depression Monitoring 02/19/2025 08/21/2024, 024 COVID-19 Vaccine ( - season) 2025 Influenza Vaccine (#1) 2025 , 08/20/2022, 07/16/2021, Additional history exists Alcohol/Substance Use Screening 08/21/2025 08/21/2024 SDOH Screening 04/23/2026 04/23/2025 Tobacco Screening 08/20/2026 08/20/2025 Lipid Panel 06/06/2030 06/06/2025, 11/03, 01/24/2023, Additional history exists Colonoscopy 03/22/2033 03/22/2023, 03/05, 07/17/2012 Colorectal Cancer Screening 03/22/2033 RSV Patients and Patients Aged 60 years or older (1 - 1-dose 75+ series) 01/28/2035 Hepatitis C Screening Completed 06/06/2025 , 10/20/2022, 04/12/2022, Additional history exists HIB Vaccines Aged Out No longer eligi [...] shoulder pain Pain of right scapula XR CERVICAL SPINE 3V Routine 08/20/2025 1:55 PM EST XR SCAPULA RIGHT Routine 08/20/2025 1:51 PM EST Chronic neck pain Chronic right shoulder pain Pain of right scapula TESTOSTERONE, TOTAL, MALES (ADULT), [place] Routine 06/06/2025 8:42 AM EDT Chronic fatigue VITAMIN B12/FOLATE, SERUM PANEL Routine 06/06/2025 8:42 AM EDT Major depression, recurrent, chronic (CMS/HCC) HEPATITIS B SURFACE ANTIBODY, QUALITATIVE Routine 06/06/2025 8:42 AM EDT Essential hypertension Other hyperlipidemia Proteinuria, unspecified type Major depression, recurrent, chronic (CMS/HCC) 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) Ankylosing spondylitis, unspecified site of spine (CMS/HCC) (HCC) Chronic neck pain Chronic bilateral low back pain, unspecified whether sciatica present Chronic pain of both knees Chronic left shoulder pain Foot pain, bilateral Tobacco dependence History of Helicobacter pylori infection Healthcare maintenance Dietary counseling Exercise counseling RPR (MONITOR) W/REFL TITER Routine 06/06/2025 8:42 AM EDT Essential hypertension Other hyperlipidemia Proteinuria, unspecified type Major depression, recurrent, chronic (CMS/HCC) 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) Ankylosing spondylitis, unspecified site of spine (CMS/HCC) (HCC) Chronic neck pain Chronic bilateral low back pain, unspecified whether sciatica present Chronic pain of both knees Chronic left shoulder pain Foot pain, bilateral Tobacco dependence History of Helicobacter pylori infection Healthcare maintenance Dietary counseling Exercise counseling HEPATITIS C AB W/REFL TO HCV RNA, QN, PCR Routine 06/06/2025 8:42 AM EDT Essential hypertension Other hyperlipidemia Proteinuria, unspecified type Major depression, recurrent, chronic (CMS/HCC) 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) Ankylosing spondylitis, unspecified site of spine (CMS/HCC) (HCC) Chronic neck pain Chronic bilateral low back pain, unspecified whether sciatica present Chronic pain of both knees Chronic left shoulder pain Foot pain, bilateral Tobacco dependence History of Helicobacter pylori infection Healthcare maintenance Dietary counseling Exercise counseling HIV 1/2 ANTIGEN/ANTIBODY, FOURTH GENERATION W/RFL Routine 06/06/2025 8:42 AM EDT Essential hypertension Other hyperlipidemia Proteinuria, unspecified type Major depression, recurrent, chronic (CMS/HCC) 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) Ankylosing spondylitis, unspecified site of spine (CMS/HCC) (HCC) Chronic neck pain Chronic bilateral low back pain, unspecified whether sciatica present Chronic pain of both knees Chronic left shoulder pain Foot pain, bilateral Tobacco dependence History of Helicobacter pylori infection Healthcare maintenance Dietary counseling Exercise counseling HEPATITIS B SURFACE ANTIGEN, EIA Routine 06/06/2025 8:42 AM EDT Essential hypertension Other hyperlipidemia Proteinuria, unspecified type Major depression, recurrent, chronic (CMS/HCC) 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) Ankylosing spondylitis, unspecified site of spine (CMS/HCC) (HCC) Chronic neck pain Chronic bilateral low back pain, unspecified whether sciatica present Chronic pain of both knees Chronic left shoulder pain Foot pain, bilateral Tobacco dependence History of Helicobacter pylori infection Healthcare maintenance Dietary counseling Exercise counseling ALBUMIN, RANDOM URINE W/CREATININE Routine 06/06/2025 8:42 AM EDT Essential hypertension Other hyperlipidemia Proteinuria, unspecified type Major depression, recurrent, chronic (CMS/HCC) 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) Ankylosing spondylitis, unspecified site of spine (CMS/HCC) (HCC) Chronic neck pain Chronic bilateral low back pain, unspecified whether sciatica present Chronic pain of both knees Chronic left shoulder pain Foot pain, bilateral Tobacco dependence History of Helicobacter pylori infection Healthcare maintenance Dietary counseling Exercise counseling CBC Routine 06/06/2025 8:42 AM EDT Essential hypertension Other hyperlipidemia Proteinuria, unspecified type Major depression, recurrent, chronic (CMS/HCC) 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) Ankylosing spondylitis, unspecified site of spine (CMS/HCC) (HCC) Chronic neck pain Chronic bilateral low back pain, unspecified whether sciatica present Chronic pain of both knees Chronic left shoulder pain Foot pain, bilateral Tobacco dependence History of Helicobacter pylori infection Healthcare maintenance Dietary counseling Exercise counseling BASIC METABOLIC PANEL Routine 06/06/2025 8:42 AM EDT Essential hypertension Other hyperlipidemia Proteinuria, unspecified type Major depression, recurrent, chronic (CMS/HCC) 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) Ankylosing spondylitis, unspecified site of spine (CMS/HCC) (HCC) Chronic neck pain Chronic bilateral low back pain, unspecified whether sciatica present Chronic pain of both knees Chronic left shoulder pain Foot pain, bilateral Tobacco dependence History of Helicobacter pylori infection Healthcare maintenance Dietary counseling Exercise counseling HEMOGLOBIN A1C Routine 06/06/2025 8:42 AM EDT Essential hypertension Other hyperlipidemia Proteinuria, unspecified type Major depression, recurrent, chronic (CMS/HCC) 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) Ankylosing spondylitis, unspecified site of spine (CMS/HCC) (HCC) Chronic neck pain Chronic bilateral low back pain, unspecified whether sciatica present Chronic pain of both knees Chronic left shoulder pain Foot pain, bilateral Tobacco dependence History of Helicobacter pylori infection Healthcare maintenance Dietary counseling Exercise counseling HEPATIC FUNCTION PANEL Routine 06/06/2025 8:42 AM EDT Essential hypertension Other hyperlipidemia Proteinuria, unspecified type Major depression, recurrent, chronic (CMS/HCC) 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) Ankylosing spondylitis, unspecified site of spine (CMS/HCC) (HCC) Chronic neck pain Chronic bilateral low back pain, unspecified whether sciatica present Chronic pain of both knees Chronic left shoulder pain Foot pain, bilateral Tobacco dependence History of Helicobacter pylori infection Healthcare maintenance Dietary counseling Exercise counseling TSH Routine 06/06/2025 8:42 AM EDT Essential hypertension Other hyperlipidemia Proteinuria, unspecified type Major depression, recurrent, chronic (CMS/HCC) 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) Ankylosing spondylitis, unspecified site of spine (CMS/HCC) (HCC) Chronic neck pain Chronic bilateral low back pain, unspecified whether sciatica present Chronic pain of both knees Chronic left shoulder pain Foot pain, bilateral Tobacco dependence History of Helicobacter pylori infection Healthcare maintenance Dietary counseling Exercise counseling LIPID PANEL, STANDARD Routine 06/06/2025 8:42 AM EDT Essential hypertension Other hyperlipidemia Proteinuria, unspecified type Major depression, recurrent, chronic (CMS/HCC) 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) Ankylosing spondylitis, unspecified site of spine (CMS/HCC) (HCC) Chronic neck pain Chronic bilateral low back pain, unspecified whether sciatica present Chronic pain of both knees Chronic left shoulder pain Foot pain, bilateral Tobacco dependence History of Helicobacter pylori infection Healthcare maintenance Dietary counseling Exercise counseling VITAMIN D,25-OH,TOTAL,IA Routine 06/06/2025 8:42 AM EDT Essential hypertension Other hyperlipidemia Proteinuria, unspecified type Major depression, recurrent, chronic (CMS/HCC) 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) Ankylosing spondylitis, unspecified site of spine (CMS/HCC) (HCC) Chronic neck pain Chronic bilateral low back pain, unspecified whether sciatica present Chronic pain of both knees Chronic left shoulder pain Foot pain, bilateral Tobacco dependence History of Helicobacter pylori infection Healthcare maintenance Dietary counseling Exercise counseling T4, FREE Routine 06/06/2025 8:42 AM EDT Essential hypertension Other hyperlipidemia Proteinuria, unspecified type Major depression, recurrent, chronic (CMS/HCC) 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) Ankylosing spondylitis, unspecified site of spine (CMS/HCC) (HCC) Chronic neck pain Chronic bilateral low back pain, unspecified whether sciatica present Chronic pain of both knees Chronic left shoulder pain Foot pain, bilateral Tobacco dependence History of Helicobacter pylori infection Healthcare maintenance Dietary counseling Exercise counseling COLONOSCOPY Routine 03/22/2023 from Last 3 Months or Most Recently Relevant to Health Maintenance Results * XR Shoulder 2+ Views Right (08/20/2025 2:20 PM EST) Anatomical Region Laterality Modality Upper Extremities, Shoulder Right Radi ographic Imaging 08/20/2025 2:20 PM EST Narrative 08/20/2025 3:45 PM EST [facility] [address] [place] [address] XRay Report Signed Patient: Azra Obregon MR#: [id number] : 1960 Acct:[id number] Age/Sex: 65 / M ADM Date: 08/20/25 Loc: HO.HHCX Attending Dr: Katerine Ely DO Ordering Physician: Katerine Ely DO Date of Service: 08/20/25 Procedure(s): XR shoulder RT min 2V Accession Number(s): [id number] cc: Katerine Ely DO Reason for Exam: [...] 08/20/25 1542 DD/ 1420 TD/TT: 08/20/25 1436 Radiology Transcriptionist: MATIAS Procedure Note Donotuseinterpreter, Image - 08/20/[address] [address] XRay Report Signed Patient: Beata Obreogn#: [id number] : 1960Acct:[id number] Age/Sex: 65 / MADM Date: 08/20/25 Loc: HO.CX Attending Dr: Katerine Ely DO Ordering Physician: Katerine Ely DO Date of Service: 08/20/25 Procedure(s): XR shoulder RT min 2V Accession Number(s): [id number] cc: Katerine Ely DO Reason for Exam: [...] acute osseous abnormality seen. Electronically signed by: Bhraat Silvestre MD 08/20/2025 03:42 PM EST Dictated By: Bharat Silvestre MD Signed By: <Electronically signed by Bharat Silvestre MD in OV> 08/20/25 1542 DD/ 1420 TD/TT: 08/20/25 1436 Radiology Transcriptionist: MATIAS us Katerine Ely DO IMG XR PROCEDURES Edited Res ult - Final * XR CERVICAL SPINE 3V (08/20/2025 1:55 PM EST) Anatomical Region Laterality Modality Abdomen Radiographic Yadira ging 08/20/2025 1:55 PM EST Narrative 08/20/2025 3:52 PM EST [facility] [address] [place] [address] XRay Report Signed Patient: Arza Obregon MR#: [id number] : 1960 Acct:[id number] Age/Sex: 65 / M ADM Date: 08/20/25 Loc: YANIRAX Attending Dr: Katerine Ely DO Ordering Physician: Katerine Ely DO Date of Service: 08/20/25 Procedure(s): XR cervical spine 3V Accession Number(s): [id number] cc: Katerine Ely DO Reason for Exam: PAIN EXAMINATION: XR CERVICAL SPINE CLINICAL INFORMATION: PAIN COMPARISON: X-rays 03/15/2022 TECHNIQUE: Cervical spine 4 views FINDINGS: No prevertebral soft tissue swelling. No acute fracture or subluxation. Atlantodens interval is maintained. Redemonstrated is anterior longitudinal ligament ossification in the cervical spine. Vertebral body heights are preserved. Intervertebral disc spaces are preserved. Findings are suggestive of DISH. XR/XR cervical spine 3V IMPRESSION: 1. No radiographic evidence of acute fracture. 2. Cervical spine findings can be seen with DISH or chronic spondyloarthropathy. Electronically signed by: Bharat Silvestre MD 08/20/2025 03:49 PM EST RP Dictated By: Bahrat Silvestre MD Signed By: <Electronically signed by Bharat Silvestre MD in OV> 08/20/25 1549 DD/ 1355 TD/TT: 08/20/25 1436 Radiology Transcriptionist: MATIAS Procedure Note Donotuseinterpreter, Image - 08/20/2025 [facility] [address] [place] [address] XRay Report Signed Patient: Azra ObregonMR#: [id number] : 1960Acct:[id number] Age/Sex: 65 / MADM Date: 08/20/25 Loc: RACHEAL Attending Dr: Katerine Ely DO Ordering Physician: Katerine Ely DO Date of Service: 08/20/25 Procedure(s): XR cervical spine 3V Accession Number(s): [id number] cc: Katerine Ely DO Reason for Exam: PAIN EXAMINATION: XR CERVICAL SPINE CLINICAL INFORMATION: PAIN COMPARISON: X-rays 03/15/2022 TECHNIQUE: Cervical spine 4 views FINDINGS: No prevertebral soft tissue swelling. No acute fracture or subluxation. Atlantodens interval is maintained. Redemonstrated is anterior longitudinal ligament ossification in the cervical spine. Vertebral body heights are preserved. Intervertebral disc spaces are preserved. Findings are suggestive of DISH. XR/XR cervical spine 3V IMPRESSION: 1. No radiographic evidence of acute fracture. 2. Cervical spine findings can be seen with DISH or chronic spondyloarthropathy. Electronically signed by: Bharat Silvestre MD 08/20/2025 03:49 PM EST Dictated By: Bharat Silvestre MD Signed By: <Electronically signed by Bharat Silvestre MD in OV> 08/20/25 1549 DD/ 1355 TD/TT: 08/20/25 1436 Radiology Transcriptionist: MATIAS us Katreine Ely DO IMG XR PROCEDURES Edited Res ult - Final * XR Scapula Right (08/20/2025 1:51 PM EST) Anatomical Region Laterality Modality Body, Scapula Right Radiographic Yadira ging 08/20/2025 1:51 PM EST Narrative 08/20/2025 3:45 PM EST [address] [address] XRay Report Signed Patient: Azra Obregon MR#: [id number] : 1960 Acct:[id number] Age/Sex: 65 / M ADM Date: 08/20/25 Loc: .HHCX Attending Dr: Katerine Ely DO Ordering Physician: Katerine Ely DO Date of Service: 08/20/25 Procedure(s): XR scapula RT Accession Number(s): [id number] cc: Katerine Ely DO Reason for Exam: [...] 08/20/25 1542 DD/ 1351 TD/TT: 08/20/25 1436 Radiology Transcriptionist: MATIAS Procedure Note Donotuseinterpreter, Image - 08/20/[address] [address] XRay Report Signed Patient: Beata Obregon#: [id number] : 1960Acct:[id number] Age/Sex: 65 / MADM Date: 08/20/25 Loc: HO.HHCX Attending Dr: Katerine Ely DO Ordering Physician: Katerine Ely DO Date of Service: 08/20/25 Procedure(s): XR scapula RT Accession Number(s): [id number] cc: Katerine Ely DO Reason for Exam: [...] 08/20/25 1542 DD/ 1351 TD/TT: 08/20/25 1436 Radiology Transcriptionist: MATIAS us Katerine Ely DO IMG XR PROCEDURES Edited Res ult - Final * Vitamin D, 25-Hydroxy, Total, Immunoassay (06/06/2025 8:42 AM EDT) [facility] Vitamin D 25-OH Total 77.2 >30 ng/mL [facility] Comment: Health Based Reference Values*< 20 ng/mL Esrsfducp65-24 ng/mL Insufficient> 30 ng/mL Sufficient*Dinesh REYNAGA. N Engl J Med. 2007;357:266-280There is no well-established upper level of normal vitamin Dlevels. Some laboratories use 50 ng/mL as an upper limit ofnormal. However, toxicity is patient-dependent and may occurat any level. Careful correlation with the patient'spresentation is necessary and, if there is concern forvitamin D toxicity, treatment should be consideredirrespective of the serum level.Care must be taken in interpreting Vitamin D results fromdifferent laboratories and methodologies. Published datademonstrated that results from patients undergoinghemodialysis may show a negative bias when tested withvarious automated 25-OH vitamin D assays when compared toLC-MS/MS.When testing samples from patients whose predominant form ofVitamin D is Vitamin D2, such as patients receiving VitaminD2 supplementation, results that are subtherapeutic shouldbe confirmed with another method such as LC-MS/MS. Blood Venous blood specimen / Unknown 06/06/2025 8:42 AM EDT 06/06/2025 11:45 AM EDT us Katerine Jhoana DO LAB BLOOD ORDERABLES Final R esult [facility] [address] [place] [phone] * Vitamin B12 (Cobalamin) and Folate Panel, Serum (06/06/2025 8:42 AM EDT) Vitamin B12 435 200 - 900 pg/mL [facility] Comment:NORMAL 200-900 PG/ML INDETERMINATE 160-199 PG/ML DEFICIENT < 160 PG/ML Folate 9.1 > or = 4.0 ng/mL [facility] Comment:Reference Values:> o r = 4.0 ng/mL< 4.0 ng/mL suggests folate deficiency Methotrexate, aminopterin and folinic acid(leucovorin) are chemotherapeutic agents whose molecularstructures are similar to folate; therefore, the Architectfolate assay cannot be used for patients using these drugs. Blood Venous blood specimen / Unknown 06/06/2025 8:42 AM EDT 06/06/2025 11:45 AM EDT us Katerine Ely DO LAB BLOOD ORDERABLES Final R esult Performing Organization Address City/[facility]/ZIP Co de Phone Number [facility] [address] [place] [phone] * (ABNORMAL) Albumin, Random Urine W/Creatinine (06/06/2025 8:42 AM EDT) Creatinine, Urine 88.87 mg/dL [facility] Microalbumin Urine 814.0 mg/L [facility] Microalbum Creatinine Ratio Ur 915.9(H) <30 ug/mg cr [facility] Comment:Albumin/Creatinine R atio Reference Ranges: Normal: < 30 ug/mg creatinine Microalbuminuria: 30 - 300 ug/mg creatinineClinical Albuminuria: > 300 ug/mg creatinine Urine (Urine, Random) 06/06/2025 8:42 AM EDT 06/06/2025 11:35 AM EDT Katerine Jhoana DO LAB URINE ORDERABLES Final R esult Performing Organization Address [facility] Co de Phone Number [facility] [address] [place] [phone] * Hepatitis C Antibody with Reflex to HCV, RNA, Quantitative, Real-Time PCR (06/06/2025 8:42 AM EDT) Hepatitis C Antibody Nonreactive Nonreactive [facility] Comment:Antibodies to HCV no t detected; does not exclude early acuteHCV infection. Blood Venous blood specimen / Unknown 06/06/2025 8:42 AM EDT 06/06/2025 11:40 AM EDT Katerine Jhoana DO LAB BLOOD ORDERABLES Final R esult Performing Organization Address [facility] Co de Phone Number [facility] [address] [place] [phone] * Hepatitis B surface antigen, EIA (06/06/2025 8:42 AM EDT) Hepatitis B Surface Ag Negative Negative [facility] Blood Venous blood specimen / Unknown 06/06/2025 8:42 AM EDT 06/06/2025 11:40 AM EDT Katerine Jhoana DO LAB BLOOD ORDERABLES Final R esult Performing Organization Address City/[facility] Co de Phone Number [facility] [address] [place] [phone] * RPR (Monitor) with Reflex to??Titer (06/06/2025 8:42 AM EDT) RPR (Monitor) w/Refl Titer NON-REACTI VE NON-REACT RAMONITA [facility] Comment:THIS TEST WAS PERFOR MED AT:[address] [place] [id number] BABB MD Rapid Plasma Reagin Ab Titer TNP [facility] Blood Venous blood specimen / Unknown 06/06/2025 8:42 AM EDT 06/06/2025 11:45 AM EDT Katerine Giojulia LAB BLOOD ORDERABLES Final R esult Performing Organization Address [facility]/ZIP Co de Phone Number [facility] [address] [place] [phone] * HIV-1/2 Antigen and Antibodies, Fourth Generation, with Reflexes (06/06/2025 8:42 AM EDT) HIV AB/AG Nonreactive Nonreactive [facility] Comment:HIV-1 p24 Ag and/or HIV-1/HIV-2 Ab not detected.A test result that is nonreactive does not exclude thepossibility of exposure to or infection with HIV-1 and/orHIV-2. Nonreactive results in this assay for individualswith prior exposure to HIV-1 and/or HIV-2 may be due toantigen and antibody levels that are below the limit ofdetection of this assay.[employer] HIV Ag/Ab Combo assay result andsupplemental assay results should be interpreted inconjunction with the patient's clinical presentation,history and other laboratory results. If the results areinconsistent with clinical evidence, additional testing issuggested to confirm the result. Blood Venous blood specimen / Unknown 06/06/2025 8:42 AM EDT 06/06/2025 11:40 AM EDT Katerine Jhoana LAB BLOOD ORDERABLES Final R esult Performing Organization Address City/[facility]/ZIP Co de Phone Number [facility] [address] [place] [phone] * Hepatitis B Surface Antibody, Qualitative (06/06/2025 8:42 AM EDT) ~Hepatitis B Surface Antibody NONREACTIVE Nonreactive [facility] Comment:Nonreactive: < 8.00 mIU/mL Blood Venous blood specimen / Unknown 06/06/2025 8:42 AM EDT 06/06/2025 11:40 AM EDT Katerine Ely DO LAB BLOOD ORDERABLES Final R esult [facility] [address], [place] [phone] * CBC (06/06/2025 8:42 AM EDT) White Blood Count 6.5 4.8 - 10.8 X10*3/uL [facility] Red Blood Count 5.44 4.60 - 5.80 X10*6/uL [facility] Hemoglobin 15.3 14.0 - 18.0 g/dl [facility] Hematocrit 46.8 42.0 - 52.0 % [facility] Mean Corpuscular Volume 86.0 80.0 - 98.0 fL [facility] Mean Corpuscular Hemoglobin 28.1 27.0 - 33.0 pg [facility] Mean Corpuscular HGB Conc 32.7 31.0 - 36.0 g/dl [facility] Red Cell Distribution Width 13.7 11.0 - 16.0 % [facility] Platelet Count 189 160 - 400 X10*3/uL [facility] Mean Platelet Volume 11.7 9.4 - 12.4 fL [facility] NRBC Pct Auto 0.0 0.0 - 0.2 /100WBC [facility] NRBC Abs Auto 0.000 0.0 - 0.012 X10*3/uL [facility] Blood Venous blood specimen / Unknown 06/06/2025 8:42 AM EDT 06/06/2025 11:45 AM EDT Katerine Perezabebajulia DO LAB BLOOD ORDERABLES Final R esult Performing Organization Address [facility] de Phone Number [facility] [address] [place] [phone] * TSH (06/06/2025 8:42 AM EDT) Thyroid Stimulating Hormone 1.77 0.32 - 4.0 uIU/mL [facility] Comment:TSH 3rd Generation ( [facility]) Blood Venous blood specimen / Unknown 06/06/2025 8:42 AM EDT 06/06/2025 11:45 AM EDT Katerine Pereztran DO LAB BLOOD ORDERABLES Final R esult Performing Organization Address [facility] de Phone Number [facility] [address] [place] [phone] * T4, Free (06/06/2025 8:42 AM EDT) Free T4 (Free Thyroxine) 0.94 0.71 - 1.85 ng/dL [facility] Blood Venous blood specimen / Unknown 06/06/2025 8:42 AM EDT 06/06/2025 11:45 AM EDT Katerine Perezabebajulia DO LAB BLOOD ORDERABLES Final R esult Performing Organization Address [facility] Co de Phone Number [facility] [address] [place] [phone] * Testosterone, Total, males (Adult), IA (06/06/2025 8:42 AM EDT) Testosterone, Total 611 250 - 1100 ng/dL [facility] Comment:Men with clinically significant hypogonadalsymptoms and testosterone values repeatedly inthe range of the 200-300 ng/dL or less, maybenefit from testosterone treatment afteradequate risk and benefits counseling.For additional information, please refer [email or web address]/[email or web address](This link is being provided for informational/educational purposes only.)This test was developed and its analytical performancecharacteristics have been determined by [employer] [place], [place]. It hasnot been cleared or approved by the U.S. Food and DrugAdministration. This assay has been validated pursuantto the CLIA regulations and is used for clinicalpurposes.THIS TEST WAS PERFORMED AT:[facility] [place] [id number] SOLANO MD,PHD Blood Venous blood specimen / Unknown 06/06/2025 8:42 AM EDT 06/06/2025 11:45 AM EDT us Lina Mitchell MD LAB BLOOD ORDERABLES Final Result [facility] [address] [place] [phone] * Hemoglobin A1c (06/06/2025 8:42 AM EDT) Hemoglobin A1c 5.3 <6.0 % [facility] Comment:Hemoglobin A1C Refer ence Range Adults: 4.8 - 6.0 % Non diabetic: < 6.0 % Goal: < 7.0 %Additional Action Suggested: > 8.0 %Note: Hemoglobin A1c results are invalid for patients with abnormal amounts of HbF. Blood transfusions may impact the HbA1c concentration in the patient sample. Estimated Average Glucose 105 mg/dL [facility] Comment:eAG = Estimated ave rage glucose which is %A1C expressed asaverage glucose, using the formula of the D8I-WnbojxeQulgbtk Glucose study (ADAG), Diabetes Care, Vol.31,#8,Apr. 2007 Blood Venous blood specimen / Unknown 06/06/2025 8:42 AM EDT 06/06/2025 11:40 AM EDT us Katerine Ely DO LAB BLOOD ORDERABLES Final R [facility] Performing Organization Address [facility]/ZIP Co de Phone Number [facility] [address] [place] [phone] * Hepatic Function Panel (06/06/2025 8:42 AM EDT) Bilirubin, Total 0.5 0.0 - 1.0 mg/dL [facility] Bilirubin, Direct 0.2 0.0 - 0.5 mg/dL [facility] Aspartate Amino Transferase 26 5 - 37 U/L [facility] Alanine Aminotransferase 18 0 - 40 U/L [facility] Total Protein 7.8 6.5 - 8.0 g/dL [facility] Albumin Level 5.0 3.5 - 5.0 g/dL [facility] Alkaline Phosphatase 66 39 - 117 U/L [facility] Blood Venous blood specimen / Unknown 06/06/2025 8:42 AM EDT 06/06/2025 11:45 AM EDT Katerine Ely DO LAB BLOOD ORDERABLES Final R [facility] Performing Organization Address [facility] Co de Phone Number [facility] [address] [place] [phone] * (ABNORMAL) Lipid Panel, Standard (06/06/2025 8:42 AM EDT) Triglycerides 169(H) <150 mg/dL [facility] Comment:Desirable Triglyceri de: less than 150 mg/dLBorderline High Triglyceride 150-199 mg/dLHigh Triglyceride: 200-499 mg/dLVery High Triglyceride: greater than or equal to 5OO mg/dL Cholesterol 224(H) <200 mg/dL [facility] Comment:Desirable Cholestero l: less than 200 mg/dLBorderline High Cholesterol: 200-239 mg/dLHigh Cholesterol: greater than 239 mg/dL LDL Cholesterol Calculated 158(H) <100 mg/dL [facility] Comment:Desirable LDL: less than 100 mg/dLNear Optimal/Above Optimal LDL: 110- 129 mg/dLBorderline High LDL: 130-159 mg/dLHigh LDL: 160-189 mg/dLVery High LDL: greater than or equal to 190 mg/dL HDL Cholesterol 33(L) >40 mg/dL [facility] Comment:Desirable HDL: great er than 40 mg/dL Note: This HDL assay may give artificially low results in patients with liver disease. Blood Venous blood specimen / Unknown 06/06/2025 8:42 AM EDT 06/06/2025 11:45 AM EDT us Katerine Ely DO LAB BLOOD ORDERABLES Final R esult [facility] [address] [place] [phone] * (ABNORMAL) Basic Metabolic Panel (06/06/2025 8:42 AM EDT) Sodium 144 135 - 145 mmol/L [facility] Potassium 4.5 3.3 - 5.1 mmol/L [facility] Chloride 109(H) 96 - 108 mmol/L [facility] Carbon Dioxide 29 22 - 29 mmol/L [facility] Anion Gap 11(L) 12 - 20 [facility] Urea Nitrogen (BUN) 22(H) 9 - 16 mg/dL [facility] Creatinine, Serum 1.14 0.5 - 1.4 mg/dL [facility] Estimated Glomerular Filt Rate >60 [facility] Comment:Chronic Kidney Disea se: Estimated GFR < 60 mL/min/1.66g3Ssmcml Kidney Disease: Estimated GFR < 15 mL/min/1.73m2 Glucose 96 60 - 115 mg/dL [facility] Calcium 9.4 8.4 - 10.2 mg/dL [facility] Blood Venous blood specimen / Unknown 06/06/2025 8:42 AM EDT 06/06/2025 11:45 AM EDT us Katerine Ely DO LAB BLOOD ORDERABLES Final R esult [facility] [address] [place] [phone] * Hm Colonoscopy (03/22/2023) Colonoscopy Normal Normal Narrative Rochelle Lyons - 03/22/2023 Recommended 10 years . see results scanned in media associate on us Historical Provider HEALTH MAINTENANCE Final Result from Last 3 Months or Most Recently Relevant to Health Maintenance [place] [address] [place] [address] [address] [place] [phone] Care Teams Superintendent Greens Relationship Specialty Start Date End Date Katerine Ely DO [address] [place] [address] PCP - General Family Medicine 06/07/11
--- OUTSIDE RECORDS SUMMARY | 2025-08-20 17:15 | XMS_ITS | Encounter Summary ---
Author Organization [employer] Address [address] [place] [address] 7 [place] [address] Care Team Providers Care Well Tester Name Role Phone Katerine Ely DO Primary Care Provider + [phone] Reason for Visit * Reason Onset Date Comments Nurse Triage 08/16/2025 Encounter Details Date Type Department Care Team ([facility] st Contact Info) Description 08/16/2025 Telephone [facility] [address] [place], [place] [phone] Katerine Ely DO [address] [place] [address] Nurse Triage Social History Tobacco Use Types Packs/Day Years [...] encounter Miscellaneous Notes * Telephone Encounter - Divina Bess RN - 08/16/2025 2:12 PM EST TC returned to pt. Pt. Reports R sided shoulder pain x 1 week, started with no precipitating injuryor overuse. Reports pain is radiating to neck and down to hand. No numbness or tingling. Feels there may be fluid in the joint. Has full ROM. Taking gabapentin and tramadol with positive effect but pain is recurrent when meds wear off. Reports pain is 6-7 at worst Pt. Can not make it to appointmentTuesday but agrees to Tuesday with PCP at noon. Protocol Used: Shoulder Pain (Adult) Protocol-Based Disposition: See in Office or Video Visit within 3 Days Video visit offer not recorded Positive Triage Questions: * Moderate pain (e.g., interferes with normal activities) and present > 3 days * Pain is worsened or caused by bending the neck * All higher-acuity triage questions were negative. Care Advice Discussed: * Pain Medicines * Telephone Encounter - Kadi Ceja - 08/16/2025 11:46 AM EST Symptom: Shoulder Pain - Not From Injury Outcome: Schedule an urgent appointment (within 1 hour) or talk to a nurse or provider soon Reason: Can't use the shoulder normally Contact pt at [phone] (Greek) documented in this encounter Plan of Treatment Upcoming Encounters Date Type Department Care Team (Late st Contact Info) Description 09/17/2025 10:45 AM EST Office Visit [facility] [address] [place] [address] Katerine Ely DO [address] [place] [address] documented as of this encounter Visit Diagnoses Not on filedocumented in this encounter Additional Health Concerns Assessment Noted Time PHQ-9 Depression Total Score: 9 08/21/20 24 11:23 AM EST documented as of this encounter Care Teams Well Tester Relationship Specialty Start Date End Date Katerine Ely DO [address] [place] [address] PCP - General Family Medicine 06/07/11 documented as of this encounter
--- OUTSIDE RECORDS SUMMARY | 2025-08-20 17:15 | XMS_ITS | Encounter Summary ---
Author Organization [employer] Address [address] [place] [address] [address] [place] [address] Care Team Providers Care Instrument Technician Helper Name Role Phone Katerine Ely DO Primary Care Provider + [phone] Encounter Details Date Type Department Care Team ([facility] st Contact Info) Description 08/20/2025 Orders Only [facility] MEDICINE [address] [place] [address] Katerine Ely DO [address] [place] [address] Social History Tobacco Use Types Packs/Day Years [...] Description 09/17/2025 10:45 AM EST Office Visit [facility] MED[facility] [address] [place] [address] [phone] Katerine Ely DO [address] [place] [address] documented as of this encounter Procedures Procedure Name Priority Date/Time Associated Diagnosis Comments XR CERVICAL SPINE 3V Routine 08/20/2025 1:55 PM EST documented in this encounter Results * XR CERVICAL SPINE 3V (08/20/2025 1:55 PM EST) Anatomical Region Laterality Modality Abdomen Radiographic Yadira ging 08/20/2025 1:55 PM EST Narrative 08/20/2025 3:52 PM EST [address] [address] XRay Report Signed Patient: Azra Obregon MR#: [id number] : 1960 Acct:[id number] Age/Sex: 65 / M ADM Date: 08/20/25 Loc: [facility] Attending Dr: Katerine Ely DO Ordering Physician: Katerine Ely DO Date of Service: 08/20/25 Procedure(s): XR cervical spine 3V Accession Number(s): [id number] cc: Katerine Ely DO Reason for Exam: [...] 08/20/25 1549 DD/ 1355 TD/TT: 08/20/25 1436 Assistant Health Educator: MATIAS Procedure Note Donotuseinterpreter, Image - 08/20/2025 [place] [address] XRay Report Signed Patient: Azra ObregonMR#: [id number] : 1960Acct:[id number] Age/Sex: 65 / MADM Date: 08/20/25 Loc: [facility] Attending Dr: Katerine Ely DO Ordering Physician: Katerine Ely DO Date of Service: 08/20/25 Procedure(s): XR cervical spine 3V Accession Number(s): [id number] cc: Katerine Ely DO Reason for Exam: [...] 08/20/2025 03:49 PM EST RP Dictated By: Bharat Silvestre MD Signed By: <Electronically signed by Bharat Silvestre MD in OV> 08/20/25 1549 DD/ 1355 TD/TT: 08/20/25 1436 Assistant Health Educator: MATIAS Katerine Ely DO IMG XR PROCEDURES Edited Res ult - Final documented in this encounter Visit Diagnoses Not on filedocumented in this encounter Additional Health Concerns Assessment Noted Time PHQ-9 Depression Total Score: 9 08/21/20 24 11:23 AM EST documented as of this encounter Care Teams Instrument Technician Helper Relationship Specialty Start Date End Date Katerine Ely DO [address] [place] [address] PCP - General Family Medicine 06/07/11 documented as of this encounter
--- OUTSIDE RECORDS SUMMARY | 2025-08-20 17:15 | XMS_ITS | Encounter Summary ---
Author Organization [employer] Address [address] [place] [address] 7 [place] [address] Care Team Providers Care Substitute School Nurse Name Role Phone Katerine Ely DO Primary Care Provider + [phone] Reason for Visit * Reason Onset Date Comments Appointment Request 10/13/2023 Encounter Details Date Type Department Care Team ([facility] st Contact Info) Description 10/13/2023 Telephone [facility] MEDICINE [address] [place], [place] [phone] Katerine Ely DO [address] [place], [place] [phone] Appointment Request Social History Tobacco Use Types [...] Miscellaneous Notes * Telephone Encounter - Leelee Gaston RN - 10/27/2023 10:55 AM EST T/C to pt. On [phone] for below message, No answer. LVM to call back on [phone]. * Telephone Encounter - Leelee Gaston RN [...] want to discuss with N, pt. Denies. [facility] crisis number is provided. Pt. Advised to [...] from pt requesting an appointment with PCP. Chief Of Production advised provider is currently on leave but ptstill would like a call. No concerns Please contact pt at [phone] documented in this encounter Plan of Treatment Upcoming Encounters Date Type Department Care Team (Late st Contact Info) Description 09/17/2025 10:45 AM EST Office Visit [facility] MEDICINE [address] [place] [address] Katerine Ely DO [address] [place] [address] documented as of this encounter Visit Diagnoses Not on filedocumented in this encounter Additional Health Concerns Assessment Noted Time PHQ-9 Depression Total Score: 4 01/12/20 23 10:55 AM EDT documented as of this encounter Care Teams Substitute School Nurse Relationship Specialty Start Date End Date Katerine Ely DO [address] [place] [address] PCP - General Family Medicine 06/07/11 documented as of this encounter
--- OUTSIDE RECORDS SUMMARY | 2025-08-20 17:15 | XMS_ITS | Encounter Summary ---
Author Organization [employer] Address [address] [place] [address] 7 [place] [address] Care Team Providers Care Field Crop Farming Supervisor Name Role Phone Katerine Ely Primary Care Provider + [phone] Reason for Visit * Reason Comments Med Refill Encounter Details Date Type Department Care Team ([facility] st Contact Info) Description 01/30/2025 Refill [facility] MEDICINE [address] [place], [place] [phone] Cherise Cote MD [address] [place], [place] [phone] Social History Tobacco Use Types Packs/Day Years [...] Description 09/17/2025 10:45 AM EST Office Visit [facility] MEDICINE [address] [place] [address] Katerine Ely DO [address] [place] [address] documented as of this encounter Visit Diagnoses Not on filedocumented in this encounter Additional Health Concerns Assessment Noted Time PHQ-9 Depression Total Score: 9 08/21/20 24 11:23 AM EST documented as of this encounter Care Teams Field Crop Farming Supervisor Relationship Specialty Start Date End Date Katerine Ely DO [address] [place] [address] PCP - General Family Medicine 06/07/11 documented as of this encounter
--- OUTSIDE RECORDS SUMMARY | 2025-08-20 17:15 | XMS_ITS | Encounter Summary ---
Author Organization [employer] Address [address] [place] [address] [address] [place] [address] Care Team Providers Care Crm Marketing Specialist Name Role Phone Katerine Ely DO Primary Care Provider + [phone] Reason for Visit * Reason Comments Med Refill Encounter Details Date Type Department Care Team (Late st Contact Info) Description 03/20/2024 Refill [facility] MEDICINE [address] [place], [place] [phone] Katerine Ely DO [address] [place] [address] Social History Tobacco Use Types Packs/Day Years [...] Description 09/17/2025 10:45 AM EST Office Visit [facility] MEDICINE [address] [place] [address] Katerine Ely DO [address] [place] [address] documented as of this encounter Visit Diagnoses Not on filedocumented in this encounter Additional Health Concerns Assessment Noted Time PHQ-9 Depression Total Score: 4 01/12/20 23 10:55 AM EDT documented as of this encounter Care Teams Crm Marketing Specialist Relationship Specialty Start Date End Date Katerine Ely DO [address] [place] [address] PCP - General Family Medicine 06/07/11 documented as of this encounter
== END 2025-08-20 13:14 | disposition home or self-care (01) ==
LOC: HO.HHCX 13:13
PROVIDERS: PCP Family Medicine; Visit Provider Family Medicine
DX: M54.2 Cervicalgia (principal); G89.29 Other chronic pain; M25.511 Pain in right shoulder; M89.8X1 Other specified disorders of bone, shoulder
CPT/HCPCS: 72040; 73010; 73030

== ENCOUNTER → 2025-08-20 13:19 | Outpatient (BNV) | payer MEDICAID, SELFPAY | PROVIDERS: PCP Family Medicine; Visit Provider Radiology Diagnostic Ultrasound | DX: M54.2 Cervicalgia (principal); M19.011 Primary osteoarthritis, right shoulder | CPT/HCPCS: 72040; 73010; 73030 ==